=== PATIENT | female | born 1950 | race Caucasian/White ===

== ENCOUNTER → 2023-11-26 12:46 | Outpatient (REF) | payer OTHER, SELFPAY | LOC: HWRCS 12:46 | PROVIDERS: ATTENDING PHYSICIAN Internal Medicine Cardiovascular Disease; FAMILY PHYSICIAN Emergency Medicine | DX: I48.0 Paroxysmal atrial fibrillation (principal) | CPT/HCPCS: 93306 ==

== ENCOUNTER → 2023-12-24 11:23 | Outpatient (REF) | payer OTHER, SELFPAY | LOC: HWWDC 11:23 | PROVIDERS: ATTENDING PHYSICIAN Emergency Medicine | DX: Z12.31 Encounter for screening mammogram for malignant neoplasm of breast (principal) | CPT/HCPCS: 77063; 77067 ==

== ENCOUNTER → 2024-07-22 04:00 | Outpatient (REF) | payer OTHER, SELFPAY | LOC: DHSLP 04:00 | PROVIDERS: ATTENDING PHYSICIAN Internal Medicine Critical Care Medicine; FAMILY PHYSICIAN Emergency Medicine | DX: G47.33 Obstructive sleep apnea (adult) (pediatric) (principal) | CPT/HCPCS: 95800 ==

== ENCOUNTER → 2024-10-14 12:40 | Outpatient (REF) | payer OTHER, SELFPAY | LOC: RAD 12:40 | PROVIDERS: ATTENDING PHYSICIAN Nurse Practitioner Adult Health; FAMILY PHYSICIAN Emergency Medicine | DX: R91.8 Other nonspecific abnormal finding of lung field (principal) | CPT/HCPCS: 71250 ==

== ENCOUNTER → 2024-11-11 10:50 | Outpatient (REF) | payer OTHER, SELFPAY | LOC: RAD 10:50 | PROVIDERS: ATTENDING PHYSICIAN Emergency Medicine | DX: J22 Unspecified acute lower respiratory infection (principal) | CPT/HCPCS: 71046 ==

== ENCOUNTER → 2024-12-01 09:16 | Outpatient (REF) | payer OTHER, SELFPAY | LOC: RCS 09:16 | PROVIDERS: ATTENDING PHYSICIAN Internal Medicine Cardiovascular Disease; FAMILY PHYSICIAN Emergency Medicine | DX: I48.0 Paroxysmal atrial fibrillation (principal); I34.0 Nonrheumatic mitral (valve) insufficiency | CPT/HCPCS: 93306 ==

== ENCOUNTER → 2024-12-28 09:10 | Outpatient (REF) | payer OTHER, SELFPAY | LOC: HWWDC 09:10 | PROVIDERS: ATTENDING PHYSICIAN Emergency Medicine | DX: Z13.820 Encounter for screening for osteoporosis (principal); Z12.31 Encounter for screening mammogram for malignant neoplasm of breast; M81.0 Age-related osteoporosis without current pathological fracture | CPT/HCPCS: 77063; 77067; 77080 ==

== ENCOUNTER 2025-02-01 19:43 | Inpatient (IN) | payer OTHER, SELFPAY ==
[2025-02-01] VITALS (8 sets, daily range): BP systolic 89–149; BP diastolic 55–92; BMI 21.2; BMI 21.0
[2025-02-01 12:21] LABS: % Basophils 0.5 % (0-2); % Eosinophils 0.3 % (0-6); % Immature Granulocytes 0.5 % (0-0.5); % Lymphocytes 11.5 % (20.5-51.1); % Monocytes 9.3 % (1.7-9.3); % Neutrophils 77.9 % (42.2-75.2); Absolute Basophils 0.1 10^3/uL (0-0.2); Absolute Immature Granulocytes 0.1 10^3/uL (0-0.05); Absolute Lymphocytes 1.3 10^3/uL (1.2-3.4); Absolute Neutrophils 8.7 10^3/uL (1.4-6.5); Hematocrit 35.2 % (37.0-47.0); Hemoglobin 12.1 g/dL (12.0-16.0); Mean Corp Hgb Conc. 34.4 g/dL (33.0-37.0); Mean Corpuscular Hgb 31.9 pg (27.0-31.0); Mean Corpuscular Volume 92.9 fL (81.0-99.0); Mean Platelet Volume 9.9 fL (7.4-10.4); Nucleated Red Blood Cells % 0 %; Platelet Count 209 10^3/uL (130-400); Red Blood Cell Count 3.79 10^6/uL (4.20-5.40); Red Cell Dist. Width 13.2 % (11.5-14.5); White Blood Cell Count 11.1 10^3/uL (4.8-10.8)
[2025-02-01 12:51] LABS: COVID-19 Antigen Negative (Negative)
[2025-02-01 12:58] LABS: Troponin I < 0.012 ng/ml
[2025-02-01 13:03] LABS: ALT (SGPT) 36 U/L (0-35); AST (SGOT) 31 U/L (14-36); Albumin 4.3 g/dl (3.5-5.0); Alkaline Phosphatase 119 U/L (38-126); Blood Urea Nitrogen 26 mg/dl (7-17); Calcium 9.5 mg/dl (8.4-10.2); Carbon Dioxide 24 mmol/L (22-30); Chloride 96 mmol/L (98-107); Glucose 109 mg/dl (70-99); Potassium 4.8 mmol/L (3.5-5.1); Sodium 134 mmol/L (135-145); Total Bilirubin 1.6 mg/dl (0.2-1.3); Total Protein 6.9 g/dl (6.3-8.2); eGFR 58.39
[2025-02-01] MEDS: ROBITUSSIN 200 MG PO (17:37)
[2025-02-01] MEDS: DUONEB 3 ML INH (17:38)
[2025-02-01] MEDS: CARDIZEM 15 MG IV (17:59)
[2025-02-01] MEDS: CARDIZEM 125 IV ×3 (18:02→21:37)
[2025-02-01 18:16] LABS: NT-proBNP 2600 pg/ml
--- NOTE | 2025-02-01 18:24 | ED.GENMED ---
History of Present Illness
General
Chief Complaint: Breathing Problem
Source: patient
Exam Limitations: none
Time Seen by Provider: 02/01/25 17:14
Nursing documentation reviewed up to this point in time: agreed with
History of Present Illness
History of Present Illness:
Patient with history of paroxysmal atrial fibrillation, status post ablation in 2022, presents ED secondary to 1 week history of persistent cough, decreased appetite, shortness of breath, and weakness. Patient was evaluated at primary care's office
this afternoon and was found to be in recurrent rapid atrial fibrillation. Patient subsequently referred to ED for an evaluation. Denies fever or chills. Denies nausea, vomiting, or diarrhea. Denies headache. Patient does report dizziness when
standing up and walking
Past History
Past History
ED Past Medical History: Arrthythmia (afib), HTN and Hypercholesterolemia
ED Past Surgical History: None
Review of Systems
Review of Systems
Allergies reviewed?: Yes
All Other Systems: ROS reviewed and negative except as documented in HPI and ROS
Constitutional: Reports no symptoms; Denies fever
Respiratory: Reports cough and trouble breathing
Cardiac: Denies chest pain or syncope
ABD/GI: Reports no symptoms
Musculoskeletal: Reports no symptoms
Skin: Reports no symptoms
Neurological: Reports dizzy
Phy Exam
Physical Exam
Physical Exam:
Physical Exam
General: mild distress, not acutely ill. afebrile
Head: nc/at. eomi
Neck: supple. no meningeal signs.
Heart: irregularly irregular, tachycardic, no murmur.
Lungs: mild respiratory distress. diminished breath sounds bilaterally
Abdomen: normal bowel sounds. not tender.
Neuro: alert and oriented x 3. no focal neurological deficits
Skin: no rash
Psychiatric: well kept. interactive and cooperative
Extremities: no edema. no calf tenderness.
Scores
Heart Failure Risk
Heart Failure Risk Score: Not Applicable
Course
Orders/Labs/Results
Orders:
Orders
02/01/25 11:53
Electrocardiogram (*1) Urgent
Reason for Study: Shortness of Breath
EKG- Treatment ONCE
02/01/25 12:07
CR Chest - 2 Views Urgent
Comment:
Reason For Exam: SOB
02/01/25 12:13
Comprehensive Metabolic Panel Urgent
Troponin I Urgent
02/01/25 12:14
COVID-19 Antigen Urgent
Source: Nasal Swab
Complete Blood Count/With Diff Urgent
INF RAPID [Influenza A+B Rapid Molecular] Urgent
ANNABELLA Source: Nasal Swab
Specimen Description:
02/01/25 17:33
Ipratropium/Albuterol Sulfate [Duoneb] 3 ml .ROUTE .STK-MED ONE
02/01/25 17:34
Guaifenesin Solution [Robitussin] 200 mg .ROUTE .STK-MED ONE
02/01/25 17:35
Add On- LAB Urgent
Tests Added?: ProBNP
02/01/25 17:36
Guaifenesin Solution [Robitussin] 200 mg PO NOW STA
02/01/25 17:38
Ipratropium/Albuterol Sulfate [Duoneb] 3 ml INH R NOW ONE
02/01/25 17:40
Diltiazem HCl [Cardizem] 15 mg IV NOW STA
02/01/25 17:43
BNP [NT-proBNP] Urgent
02/01/25 17:45
Diltiazem 125 mg/125 ml Nss [Cardizem] 125 mg in 125 ml IV PER PROTOCOL
Initial dose in mg/hr, then titrate:: 5
Titrate to keep:: Heart rate 80-100 bpm
Titrate by mg/hr:: 5 mg/hr
Frequency of titrations (minutes):: 15
Maximum dose in mg/hr:: 15
02/01/25 18:24
Azithromycin 500 mg/250 ml [Zithromax Infusion] 500 mg in 250 ml IV NOW
CefTRIAXone [Rocephin] 1,000 mg IV NOW STA
02/01/25 18:27
Apixaban [Eliquis] 5 mg PO NOW STA
02/01/25 18:54
Admit/Transfer Patient As Directed
Co-Sign Provider:
Level of Care: Inpatient admission
Assign to:: Telemetry
Physician / Group: Lore
Diagnosis: Pneumonia
Reason for Telemetry: Medication for Arrhythmia
Date to Stop Telemetry: 02/03/25
Time to Stop Telemetry: 11:00
Reason for Hospitalization: Pneumonia complicated by rapid afib
Expected length of stay greater than two midnights?: Yes
ELOS- Estimated Length of Stay in days: 2
I certify the patient meets the requirements for IP care: Yes
PRN Pain Medication Management As Directed
May give lesser potent ordered pain med per pt: Yes
preference::
Protocol:: Medication orders for pain may be administered in a
manner that supports deferring to patient preference
when the pt is:
- Requesting an ordered lesser potent pain medication.
Least to most potent pain medications are defined
as: acetaminophen < NSAID < tramadol < opioids
(morphine, oxycodone, hydromorphone).
- Requesting a lesser dose of the same medication IF
ORDERED.
- Requesting a less intrusive route of administration
if both routes are prescribed by the provider (PO <
IV).
02/01/25 18:56
Code Status As Directed
Resuscitation Status: Full Code
02/03/25 11:00
DC Protocol for Telemetry ONCE
Abnormal Lab Results
02/01/25 02/01/25
12:13 12:14
WBC 11.1 H 10^3/uL
(4.8-10.8)
RBC 3.79 L 10^6/uL
(4.20-5.40)
Hct 35.2 L %
(37.0-47.0)
MCH 31.9 H pg
(27.0-31.0)
Abs Immat Gran (auto) 0.1 H 10^3/uL
(0-0.05)
Absolute Neuts (auto) 8.7 H 10^3/uL
(1.4-6.5)
Absolute Monos (auto) 1.0 H 10^3/uL
(0.1-0.6)
Neutrophils % 77.9 H %
(42.2-75.2)
Lymphocytes % 11.5 L %
(20.5-51.1)
Sodium 134 L mmol/L
(135-145)
Chloride 96 L mmol/L
(98-107)
BUN 26 H mg/dl
(7-17)
Glucose 109 H mg/dl
(70-99)
Total Bilirubin 1.6 H mg/dl
(0.2-1.3)
ALT 36 H U/L
(0-35)
02/01/25 12:14
02/01/25 12:13
Vital Signs
Initial and Last Documented VS:
Initial Vital Signs
Temp Pulse Resp BP Pulse Ox
98.3 F 146 18 124/74 98
02/01/25 12:03 02/01/25 12:03 02/01/25 12:03 02/01/25 12:03 02/01/25 12:03
Last Documented Vital Signs
Temp Pulse Resp BP Pulse Ox
98.3 F 108 31 149/92 92
02/01/25 12:03 02/01/25 18:05 02/01/25 17:01 02/01/25 17:59 02/01/25 17:17
MDM/Problems Addressed
MDM/Problems Addressed:
History and exam consistent with recurrent rapid atrial fibrillation, likely triggered by pneumonia. Patient started on Cardizem infusion, along with antibiotics.
Patient will be admitted for further evaluation and treatment.
Critical care statement: A total of 40 minutes of critical care time was provided for this patient. This includes management of unstable vital signs, evaluation of the patient at bedside, reviewing the patient's pertinent medical records, review of
old EKGs and review of pertinent medical records. This time with separate from time utilized to perform the aforementioned documented procedures
*Critical Care Note
Total Time (30-74mins, 75-104mins- exclusive of procedures): 40 min
ED Attending Note
-
Portions of this chart may have been created with voice recognition software.� Occasional wrong word or��sound alike� substitutions may have occurred due to the inherent limitations of voice recognition software.
Discharge Plan
Departure
Patient Disposition: Admit
Date of Disposition: 02/01/25
Time of Disposition: 18:32
Admit to: Telemetry
Presentation/result/management discussed w/ accepting MD/DO: Hospitalist
Discharge Problem:
Atrial fibrillation, rapid, Pneumonia
Interventions
Interventions:
*Risk Screen - Suicide Last Done: 02/01/25 12:03
*General Assessment Last Done: 02/01/25 12:03
*Neglect/Abuse Screening Last Done: 02/01/25 12:03
*ED COVID-19 Vaccine History Last Done: 02/01/25 12:06
ED- Cardiac Assessment Last Done: 02/01/25 17:16
ED- Pulmonary Assessment Last Done: 02/01/25 17:17
--- NOTE | 2025-02-01 18:32 | HPS.HSE ---
Family Physician
-
Family Physician: Erika Rocha MD
Chief Complaint
-
Cough and shortness of breath
History of Present Illness
This is a 76-year-old female with past medical history of atrial fibrillation status post cardioversion, status post ablation, on anticoagulation and rate control with beta-blockade, history of emphysema, hypertension, hyperlipidemia presenting to
the emergency department with rapid atrial fibrillation from clinic.
Patient reports 10 days of cough that is mostly nonproductive. She reports worsening dyspnea on exertion over the weekend. No fevers or chills. She reports fatigue. Decreased appetite. She reports intermittent pedal edema but nothing
significant compared to her baseline. She denies orthopnea or PND. She felt some body shakes but denies any palpitations lightheadedness or dizziness. She denies having any chest pain.
She saw primary care doctor today who found that she was back in atrial fibrillation that was rapid and seen at the emergency department. She has not been in atrial fibrillation for a long time and had an ECG done in November which did not show any
atrial fibrillation. She reports an awareness of the atrial fibrillation in general in the past.
In the emergency department she remains afebrile with a temp of 90.3 she is satting 93% on room air. Blood pressure was initially 150/90 with a pulse in the 150s. ECG shows atrial fibrillation at a rate of 156. Chest x-ray shows bilateral lower
lobe opacities.
White count was 11.2 CBC otherwise unremarkable. Electrolytes BUN/creatinine were stable.
Medical History
Past Medical History
Past Medical History: Reports Arrhythmia (paroxysmal atrial fibrillation), CAD, COPD (emphysema ), Valvular Disease (Mitral regurgitation) and Other (Sleep apnea)
Past Surgical History: Reports Appendectomy
Social History
Tobacco: Former Smoker
Alcohol: Daily (1 glass of wine)
Drug: None
Personal: Single
Living: With Family
Employment: Retired
Family History
Family History: Not pertinent
Allergies / Home Medications
Allergies reflects when Allergies were last updated in [employer].
Home Medications with original date entered in [employer]
Allergy/Medication List:
Allergies
Allergy/AdvReac Type Severity Reaction Status Date / Time
hydromorphone [From Dilaudid] Allergy Severe hallucinati Verified 02/01/25 12:07
ons
Home Medications
amlodipine 5 mg tablet 5 mg PO QPM Blood pressure 11/20/22
apixaban 5 mg tablet (Eliquis) 5 mg PO BID Blood clot prevention/tx 11/20/22
ascorbic acid (vitamin C) 500 mg tablet (Vitamin C) 500 mg PO DAILY Supplement 11/20/22
atorvastatin 10 mg tablet 15 mg PO QPM High cholesterol 11/20/22
calcium carbonate 600 mg PO BID Supplement 11/20/22
irbesartan 150 mg tablet 150 mg PO DAILY Blood pressure 11/20/22
mkfqekpgkezd-jxbrhwmf-kxqyur tablet 1 tab PO DAILY Supplement 11/20/22
omega 1-egb-jtx-fish oil 1,200 mg (144 mg-216 mg) capsule (Fish Oil) 1,200 cap PO BID supp 11/20/22
furosemide 20 mg tablet 20 mg PO MOWEFR 12/25/22
amiodarone 200 mg tablet 200 mg PO DAILY 02/15/23
magnesium oxide 400 mg PO TID 02/15/23
niacin 500 mg tablet 500 mg PO QPM 02/15/23
metoprolol succinate 50 mg tablet,extended release 24 hr 12.5 mg (1/4 x 50 mg) PO BID #0 tabs 03/15/23
Review of Systems
-
History Source: Patient
Constitutional: Reports Fatigue
EENT: Reports No Symptoms
Respiratory: Reports Cough and Trouble Breathing
Cardiac: Reports No Symptoms
Abdomen/GI: Reports No Symptoms
: Reports No Symptoms
Musculoskeletal: Reports No Symptoms
Skin: Reports No Symptoms
Neurological: Reports No Symptoms
Endocrine: Reports No Symptoms
Hematologic/Lymphatic: Reports No Symptoms
Psych: Reports No Symptoms
Physical Exam
Vital Signs
Vital Signs
Temp Pulse Resp BP Pulse Ox
98.3 F 108 31 149/92 92
02/01/25 12:03 02/01/25 18:05 02/01/25 17:01 02/01/25 17:59 02/01/25 17:17
Physical Exam
General: Well Developed, Well Nourished, Comfortable and Poor Appetite
HEENT: NormoCephalic, Anicteric, Moist mucous membranes and Atraumatic
Respiratory: Wheezes (Occasional coarse wheeze), Crackles (Bibasilar faint crackles,) and Non Labored Respirations; No Accessory Resp Muscle Use
Cardiac: S1/S2, Irregular Rhythm and Tachycardia; No Murmur, Rub, Gallop, Peripheral Edema or JVD
Breast: Deferred by me
GI: Soft, Non Tender, Non Distended and Normal Bowel Sounds
Rectal: Deferred by Provider
Genito-urinary: Deferred by me
Musculoskeletal: No Clubbing, No Cyanosis and No Edema
Skin: Warm
Neuro: AO x 3 and Nonfocal/grossly intact
Hematologic/Lymphatic: No Lymphadenopathy
Psych: Calm
Laboratory Results
-
02/01/25 12:14
02/01/25 12:13
Laboratory Results
Total Bilirubin 1.6 mg/dl (0.2-1.3) H 02/01/25 12:13
AST 31 U/L (14-36) 02/01/25 12:13
ALT 36 U/L (0-35) H 02/01/25 12:13
Alkaline Phosphatase 119 U/L (38-126) 02/01/25 12:13
Troponin I < 0.012 ng/ml 02/01/25 12:13
Data Reviewed
-
Diagnostic Radiology: Image Personally Visualized and interpreted and Report Reviewed by me
Medical Tests (Nuc Med, Echo, EKG etc): Image Personally Visualized and interpreted
Lab Data: Labs Reviewed by me
Old Records: Reviewed
Impression/Plan
-
IMPRESSION:
76-year-old with past medical history of atrial fibrillation status post ablation who presents to the emergency department after 10 days of cough and found to have bilateral lower lobe pneumonia. She is in rapid atrial fibrillation as well. No
evidence of congestive heart failure. She is afebrile and hemodynamically stable at this time not requiring supplemental oxygen.
PLAN:
Pneumonia complicated by rapid atrial fibrillation
- admit to telemetry
- check legionella and strep ag
- continue ceftriaxone and azithromycin
- antitussives
- prn nebs for now, do not think she has significant bronchospastic component or COPD exacerbation
Rapid atrial fibrillation
- continue diltiazem at rate of 15, d/c if pulse < 60
- hold off on repeat echo for now
- continue eliquis
- cardiology consultation
Hypertension
- irbesatan with hold parameters
- hold amlodipine
- hold lasix
- continue statin
DVT PPx - on apixaban
Code status - Full Code
[2025-02-01] MEDS: ROCEPHIN 1000 MG IV (19:21)
[2025-02-01] MEDS: ZITHROMAX INFUSION 250 IV (19:24)
[2025-02-01] MEDS: ELIQUIS 5 MG PO (19:25)
[2025-02-01] MEDS: CARDURA 2 MG PO (23:09)
[2025-02-02] VITALS (10 sets, daily range): BP systolic 94–124; BP diastolic 45–96; BMI 20.9
[2025-02-02 05:11] LABS: Mean Corp Hgb Conc. 34.5 g/dL (33.0-37.0); Mean Corpuscular Hgb 31.8 pg (27.0-31.0); Mean Corpuscular Volume 92.4 fL (81.0-99.0); Mean Platelet Volume 9.9 fL (7.4-10.4); Platelet Count 185 10^3/uL (130-400); Red Blood Cell Count 3.14 10^6/uL (4.20-5.40); Red Cell Dist. Width 13.2 % (11.5-14.5); White Blood Cell Count 8.5 10^3/uL (4.8-10.8)
[2025-02-02 05:21] LABS: Blood Urea Nitrogen 22 mg/dl (7-17); Calcium 8.7 mg/dl (8.4-10.2); Carbon Dioxide 23 mmol/L (22-30); Chloride 104 mmol/L (98-107); Estimated Creatinine Clearance 52 ml/min; Glucose 74 mg/dl (70-99); Magnesium 1.5 mg/dl (1.6-2.3); Potassium 4.2 mmol/L (3.5-5.1); Sodium 135 mmol/L (135-145); eGFR > 60.00
[2025-02-02] MEDS: SYNTHROID 50 MCG PO (06:14)
[2025-02-02] MEDS: MAGNESIUM SULFATE 100 IV (06:14)
[2025-02-02] MEDS: CARDIZEM 125 IV ×2 (06:23→20:56)
--- NOTE | 2025-02-02 06:37 | PTCARENOTE ---
Pt admitted to room 2241. Pt AAOx4, AFib with HR 90-100s. Cardizem gtt. Pt ambulates with x 1 assist. oriented to room, call oviedo in reach
[2025-02-02] MEDS: ELIQUIS 5 MG PO ×2 (07:51→19:44)
[2025-02-02] MEDS: AVAPRO 300 MG PO (07:51)
[2025-02-02] MEDS: TOPROL XL 12.5 MG PO ×2 (07:51→18:02)
[2025-02-02] MEDS: ZITHROMAX 500 MG PO (07:52)
--- NOTE | 2025-02-02 08:16 | W.PN.HOSP.TC ---
Today's Communication/Plan
-
Add mucinex for chest congestion
continue antibiotics
cardiology consultation regarding cardizem infusion and plans for cardioversion
Assessment / Plan
Assessment / Plan
Impression
Patient is a 74-year-old female with past medical history significant for atrial fibrillation s/p cardioversion, s/p ablation, on anticoagulation and rate controlled with beta-blockade, history of emphysema, hypertension, hyperlipidemia presented
from her primary care office with rapid A-fib, heart rate ranging in 150s. Had been out of A-fib for a long time. Admitted with rapid A-fib triggered by pneumonia.
Assessment/plan
#1. Pneumonia complicated by rapid A-fib
10 days of nonproductive cough, remained afebrile, reports some fatigue, denies any palpitations chest pain or shortness of breath
Chest x-ray done in the ED revealed bilateral lower lobe opacities
EKG-rapid A-fib with heart rate ranging in 150s
Legionella and strep pneumoniae antigen pending, COVID-negative, influenza negative
Continue ceftriaxone and azithromycin
Continue Cardizem infusion
As needed nebs
#2 rapid A-fib
Continue diltiazem, currently at 5 mg/h
Titrate as able
Last echo, November 2024, moderate MR moderate TR, normal left ventricular ejection fraction
Continue Eliquis
cardiology consultation
#3 essential hypertension
Continue irbesartan with holding parameters
Amlodipine on hold given the patient is on Cardizem infusion
Hold Lasix
#4 hyperlipidemia
Continue statin
DVT prophylaxis-continue Eliquis
CODE STATUS-full code
Anticipated Discharge: 24 - 48 hours
Subjective/Interval History
-
Date of Service: February 02, 2025
Patient complains of nonproductive cough, fatigue, remained afebrile overnight, slept well, no other issues.
Objective Data
-
Labs:
Laboratory Results
02/02/25
04:30
WBC 8.5
Hgb 10.0 L
Hct 29.0 L
Plt Count 185
Sodium 135
Potassium 4.2
Chloride 104
Carbon Dioxide 23
BUN 22 H
Creatinine 0.8
Glucose 74
Calcium 8.7
Vital Signs:
Vital Signs
Temp Pulse Resp BP Pulse Ox
98.3 F 83 20 109/60 93
02/02/25 06:58 02/02/25 07:51 02/02/25 06:58 02/02/25 07:51 02/02/25 06:58
I&O
02/01/25 02/02/25 02/03/25
06:59 06:59 06:59
Intake Total 460 / 460
Balance 460 / 460
Review of Systems
-
All other systems: Reviewed and negative
Physical Exam
-
General: Well Developed, No Apparent Distress and Comfortable
HEENT: Normocephalic, Atraumatic, Moist Mucous Membranes and Other (Breathing on room air)
Respiratory: Other (Bilateral rhonchi, harsh vesicular breathing)
Cardiac: S1/S2, Irregular Rhythm and Other (Heart rate 70 to 80s, no murmur, rub or gallop)
GI: Soft, Nontender, Nondistended and Normal Bowel Sounds
Musculoskeletal: No Clubbing, No Cyanosis and No Edema
Skin: Warm and Dry
Neuro: Awake, Oriented and Nonfocal/Grossly Intact
Psych: Calm
[2025-02-02] MEDS: MAGNESIUM SULFATE 102 GRAMS IV (09:11)
[2025-02-02] MEDS: MUCINEX 600 MG PO ×2 (12:06→19:44)
[2025-02-02] MEDS: TYLENOL 650 MG PO (12:24)
[2025-02-02 14:41] LABS: Total Iron Binding Capacity 240 ug/dl (265-497)
[2025-02-02 15:04] LABS: Reticulocyte Count 1.1 % (0.4-2.8)
--- NOTE | 2025-02-02 17:11 | CM ---
spoke to pt in room, she is prev indep, her son/2 toddlers lives with her in a 2 story home with 2 steps to enter. she denies any dc planning needs or dme's. plan is for dc to home when medically stable.
[2025-02-02] MEDS: ROCEPHIN 1000 MG IV (17:19)
[2025-02-02] MEDS: LIPITOR 15 MG PO (17:19)
[2025-02-02] MEDS: STERILE WATER FOR INJECTION 10 ML IV (17:20)
--- NOTE | 2025-02-02 18:56 | PTCARENOTE ---
~5742-1733: Handoff report received from ant MIRAMONTES. Pt Aox4, Afib on tele 60s-70s, SBP 90s-100s at this time, cardizem gtt @ 5, pt c/o lightheadedness with moving. Around 0800, cardizem gtt turned off per titration parameters. RA satting mid
90s, lungs diminished bases with frequent dry cough. Pt denies pain at this time. Ax1 to bathroom. urine sample sent to lab. 1G mag hung per order. All needs met at this time, call oviedo within reach.
~4172-1363: Pt c/o headache, PRN tylenol given.
~6949-0036: Pt resting in room. Pt remains in Afib, 70s-80s, RA. Pt c/o some brief nausea with coughing, however does not want anything.
~[id number]: Pt Afib HR increased to 100s-120s, Dr. Salcido made aware that the patient is eating at this time, one dose of metoprolol given per order. After 30 mins, HR remains 110s-120s, informed Dr. Joe new orders at this time. Handoff
report given to padmini MIRAMONTES.
[2025-02-02 19:00] LABS: Folate > 20.0 ng/ml (2.76-20); Vitamin B12 935 pg/ml (239-931)
[2025-02-02] MEDS: CARDURA 2 MG PO (20:56)
--- NOTE | 2025-02-02 21:37 | PTCARENOTE ---
19:55 Pt HR 110-140 AFib , Cardizem gtt restarted per order
[2025-02-03] VITALS (13 sets, daily range): BP systolic 94–117; BP diastolic 52–81; PULSE 94; O2SAT 96–97; BMI 20.8
[2025-02-03] MEDS: SYNTHROID 50 MCG PO (03:56)
[2025-02-03] MEDS: TYLENOL 650 MG PO (03:57)
[2025-02-03 05:00] LABS: % Basophils 0.4 % (0-2); % Immature Granulocytes 0.4 % (0-0.5); % Lymphocytes 18.4 % (20.5-51.1); % Monocytes 10.9 % (1.7-9.3); % Neutrophils 68.9 % (42.2-75.2); Absolute Eosinophils 0.1 10^3/uL (0-0.7); Absolute Lymphocytes 1.5 10^3/uL (1.2-3.4); Absolute Monocytes 0.9 10^3/uL (0.1-0.6); Absolute Neutrophils 5.4 10^3/uL (1.4-6.5); Hematocrit 30.2 % (37.0-47.0); Hemoglobin 10.3 g/dL (12.0-16.0); Mean Corp Hgb Conc. 34.1 g/dL (33.0-37.0); Mean Corpuscular Hgb 31.4 pg (27.0-31.0); Mean Corpuscular Volume 92.1 fL (81.0-99.0); Mean Platelet Volume 9.9 fL (7.4-10.4); Nucleated Red Blood Cells % 0 %; Platelet Count 210 10^3/uL (130-400); Red Blood Cell Count 3.28 10^6/uL (4.20-5.40); Red Cell Dist. Width 12.8 % (11.5-14.5); White Blood Cell Count 7.9 10^3/uL (4.8-10.8)
[2025-02-03 05:20] LABS: ALT (SGPT) 35 U/L (0-35); AST (SGOT) 36 U/L (14-36); Albumin 3.3 g/dl (3.5-5.0); Alkaline Phosphatase 104 U/L (38-126); Blood Urea Nitrogen 12 mg/dl (7-17); Calcium 8.7 mg/dl (8.4-10.2); Carbon Dioxide 21 mmol/L (22-30); Chloride 103 mmol/L (98-107); Estimated Creatinine Clearance 69 ml/min; Glucose 92 mg/dl (70-99); Magnesium 1.5 mg/dl (1.6-2.3); Potassium 4.4 mmol/L (3.5-5.1); Sodium 134 mmol/L (135-145); Total Bilirubin 0.8 mg/dl (0.2-1.3); Total Protein 5.7 g/dl (6.3-8.2); eGFR > 60.00
[2025-02-03] MEDS: MAGNESIUM SULFATE 100 IV ×2 (06:19→11:18)
--- NOTE | 2025-02-03 08:30 | PTCARENOTE ---
Assumed care of pt from prev nsg shift; pt AAO3 w/no CP or SOB. Pt's VSS w/HR in the 70's-80's, BP 99/65, then 101/68 on recheck before meds. Pt is Afib on telemetry monitoring. HR is controlled. Addtl 1GM Mg+ rider IV administered as ordered.
Cardiology in to see pt & pt's Eliquis restarted this AM. Plan for poss D/C today. Pt w/call oviedo within reach & plan of care ongoing.
--- NOTE | 2025-02-03 08:36 | W.PN.HOSP.TC ---
Today's Communication/Plan
-
Cardioversion on outpatient basis as per cards
Discharge on oral augmentin
Assessment / Plan
Assessment / Plan
Impression
Patient is a 74-year-old female with past medical history significant for atrial fibrillation s/p cardioversion, s/p ablation, on anticoagulation and rate controlled with beta-blockade, history of emphysema, hypertension, hyperlipidemia presented
from her primary care office with rapid A-fib, heart rate ranging in 150s. Had been out of A-fib for a long time. Admitted with rapid A-fib triggered by pneumonia.
Assessment/plan
#1. Pneumonia complicated by rapid A-fib
10 days of nonproductive cough, remained afebrile, reports some fatigue, denies any palpitations chest pain or shortness of breath
Chest x-ray done in the ED revealed bilateral lower lobe opacities
EKG-rapid A-fib with heart rate ranging in 150s
Legionella and strep pneumoniae antigen negative, COVID-negative, influenza negative
Continue ceftriaxone and azithromycin
Cardizem infusion restarted overnight-as patient heart rate ranging in 120's
Add duonebs 4 hourly
On mucinex to help clear out the air passages
#2 rapid A-fib
Diltiazem restarted overnight given patient's rapid afib
Continue diltiazem, currently at 5 mg/h
Titrate as able
Last echo, November 2024, moderate MR moderate TR, normal left ventricular ejection fraction
Continue Eliquis
cardiology consultation-no plans of cardioversion-treat pneumonia-outpatient follow-up
#3 essential hypertension
Continue irbesartan with holding parameters
Amlodipine on hold given the patient is on Cardizem infusion
Hold Lasix
#4.Normocytic Anemia
Vit B12 Normal
Folate levels normal
Follow Iron studies
#5.hyperlipidemia
Continue statin
DVT prophylaxis-Eliquis
CODE STATUS-full code
Anticipated Discharge: 24 - 48 hours
Subjective/Interval History
-
Date of Service: February 03, 2025
Coughing and disturbed sleep due to cough
Objective Data
-
Labs:
Laboratory Results
02/03/25
03:49
WBC 7.9
Hgb 10.3 L
Hct 30.2 L
Plt Count 210
Sodium 134 L
Potassium 4.4
Chloride 103
Carbon Dioxide 21 L
BUN 12
Creatinine 0.6
Glucose 92
Calcium 8.7
Total Bilirubin 0.8
AST 36
ALT 35
Alkaline Phosphatase 104
Vital Signs:
Vital Signs
Temp Pulse Resp BP Pulse Ox
98.7 F 75 20 99/61 90
02/03/25 07:04 02/03/25 07:31 02/03/25 07:04 02/03/25 07:05 02/03/25 07:05
I&O
02/02/25 02/03/25 02/04/25
06:59 06:59 06:59
Intake Total 460 / 460 300 / 300
Output Total 150 / 150
Balance 460 / 460 150 / 150
Review of Systems
-
All other systems: Reviewed and negative
Physical Exam
-
General: Well Developed, Well Nourished and No Apparent Distress
HEENT: Normocephalic, Atraumatic and Moist Mucous Membranes
Respiratory: Other (Harsh vesicular breathing with some coarse ronchi)
Cardiac: Irregular Rhythm (Irregularly irregular rhythm) and Tachycardic
GI: Soft, Nontender, Nondistended and Normal Bowel Sounds
Musculoskeletal: No Clubbing, No Cyanosis and No Edema
Skin: Warm and Dry
Neuro: Awake, Oriented and No Motor Deficits
Psych: Calm
--- NOTE | 2025-02-03 08:43 | CON.CAR ---
Addendum entered and electronically signed by Caleb Al MD 02/03/25 10:21:
I saw and examined the patient.
The Dietetic Aide's note was reviewed and I agree with the note.
Comment: Briefly, 74-year-old woman with past medical history of atrial fibrillation with prior PVI who presented to her primary care physician's office for evaluation of cough and fatigue and was found to be in atrial fibrillation with rapid
ventricular response. Currently being treated with IV antibiotics for community-acquired pneumonia.
Was maintained on diltiazem drip overnight and heart rates were better controlled this morning
Does not seem to be overtly symptomatic in atrial fibrillation
Plan to wean off diltiazem drip
Continue home metoprolol for goal heart rate less than 110 bpm, can uptitrate as needed
Continue Eliquis for cardioembolic prophylaxis
Recommend treatment of pneumonia and we can reevaluate in the office in the next several weeks. If she remains in atrial fibrillation at that time will schedule outpatient cardioversion.
Rest per Margarette Torre
Original Note:
Consultation
Consultation Request
Date/Time Consultation Requested: 02/02/2025
Date/Time Consultation Performed: 02/03/2025
Requesting Provider: Dr. Espinosa
Performing Provider: Margarette Torre PA-C for Dr. Al
Reason for Consultation: Afib w/ RVR
Medical History
-
History of Present Illness:
HPI: Jessica is a 74 year old female with PMH of paroxysmal atrial fibrillation s/p PVI, pulmonary HTN, COPD, HTN, HLD, and MR. She presented to [facility] ER after being seen by PCP earlier in the day 02/01/2025 for evaluation of ongoing cough and fatigue
for 1 week. She stated she started to feel quite poorly over the past few days, prompting evaluation. During visit with PCP, she was noted to be back in afib w/ RVR, so was referred to the ER for further workup and management. In ER, she remained in
rapid afib by initial ECG and workup also revealed pneumonia. She was admitted and started on abx and cardizem gtt. Cardiology consulted for evaluation given Afib w/ RVR. She notes despite HR improving into the 70s, continues to feel somewhat poorly
with ongoing cough and malaise. Remains in afib on review of telemetry.
PMH:
Paroxysmal atrial fibrillation
s/p PVI 03/18/2023
Chronic Eliquis AC
Pulmonary HTN
COPD
HTN
HLD
Mild-mod MR by echo 11/2024
Past Medical History
Past Medical History: Other (In HPI)
Past Surgical History: Appendectomy, Cardiac (PVI 03/18/2023) and Orthopedic
Social History
Tobacco: Former Smoker
Alcohol: Occasional
Drug: None
Personal:
Family History
Family History: Reviewed & Not Pertinent
Allergies / Home Medications
Allergy/AdvReac Type Severity Reaction Status Date / Time
hydromorphone [From Dilaudid] Allergy hallucinati Verified 02/02/25 17:58
ons
�Medication �Instructions �Recorded �Confirmed �Type
apixaban 5 mg tablet (Eliquis) 5 mg PO BID Blood clot 11/20/22 02/01/25 History
prevention/tx
ascorbic acid (vitamin C) 500 mg 500 mg PO DAILY Supplement 11/20/22 02/01/25 History
tablet (Vitamin C)
atorvastatin 10 mg tablet 15 mg PO QPM High cholesterol 11/20/22 02/01/25 History
calcium carbonate 600 mg PO BID Supplement 11/20/22 02/01/25 History
irbesartan 150 mg tablet 300 mg PO DAILY Blood pressure 11/20/22 02/01/25 History
mjzrxgqjkxnw-tirzblie-rjznxy 1 tab PO DAILY Supplement 11/20/22 02/01/25 History
tablet (Theratrum Complete 50 Plus
with Lutein tablet)
furosemide 20 mg tablet 40 mg PO DAILY Fluid 12/25/22 02/01/25 History
Retention/Swelling
magnesium oxide 400 mg PO DAILY Supplement 02/15/23 02/01/25 History
doxazosin 2 mg tablet 2 mg PO HS Blood Pressure 02/01/25 02/01/25 History
levothyroxine 50 mcg tablet 50 mcg PO DAILY Thyroid 02/01/25 02/01/25 History
(Synthroid)
metoprolol succinate 50 mg 12.5 mg PO DAILY Blood Pressure 02/01/25 02/01/25 History
tablet,extended release 24 hr
Review of Systems
-
History Source: Patient
All other systems: Negative unless noted
Physical Exam
Vital Signs
Temp Pulse Resp BP Pulse Ox
98.7 F 75 20 99/61 90
02/03/25 07:04 02/03/25 07:31 02/03/25 07:04 02/03/25 07:05 02/03/25 07:05
Lab Results
02/03/25 03:49
02/03/25 03:49
Troponin I < 0.012 ng/ml 02/01/25 12:13
Zhm-R-Vflzmdcfday Pept 2600 pg/ml 02/01/25 17:43
Physical Exam
General: Well Developed, Well Nourished and No Apparent Distress
HEENT: Normocephalic, Anicteric and Moist Mucous Membranes
Respiratory: Rhonchi and Non Labored Respirations
Cardiac: S1/S2, Irregular Rhythm and Murmur
Musculoskeletal: No Clubbing, No Cyanosis and No Edema
Skin: Warm and Dry
Neuro: AO x 3 and Nonfocal/Grossly Intact
Psych: Calm
Impression / Plan
-
PCP: Dr. Rocha
Loader Helper Sorting Yard: Dr. Martine Mendoza
Impression:
Presented with cough, malaise
Pneumonia
Hypomagnesemia
Hyponatremia
Paroxysmal atrial fibrillation w/ RVR
s/p PVI 03/18/2023
Chronic Eliquis AC
Pulmonary HTN
COPD
HTN
HLD
Mild-mod MR by echo 11/2024
RAUL 03/12/2023: EF 55-60%, mild MR, moderate to severe TR, estimated PAP 31 mmHg
Echo 11/26/2023: EF 55-60%, moderate MR, moderate to severe TR, estimated PAP 52 mmHg,
Echo 12/01/2024: EF 54%, mild to mod MR, mod TR, estimated PAP 51 mmHg
Plan:
-Presented with ongoing cough and malaise. Admitted with pneumonia and rapid afib.
-Continues w/ cough. Continue abx per primary service.
-In Afib w/ RVR on initial ECG, reviewed by me.
-Continues on cardizem gtt @5 for rate control. HR stable. Wean as able.
-Consider increasing Toprol as BP allows for rate control. BP on soft side this AM.
-Continue Eliquis 5mg BID. On hold this AM, Hgb stable and patient denies any bleeding issues noted. Will resume.
-Can consider for CV this admission if remains in Afib.
-Echo 11/2024 noted preserved EF with stable, mild to moderate MR, no need to repeat at this time.
-Mag 1.5, repletion ongoing. K stable at 4.4
-Check TSH. On levothyroxine 50 mcg daily as OP.
-Volume status appears stable. Continue PO lasix 40mg daily.
-Continue current BP regimen w/ irbesartan, doxazosin.
HPI: Jessica is a 74 year old female with PMH of paroxysmal atrial fibrillation s/p PVI, pulmonary HTN, COPD, HTN, HLD, and MR. She presented to [facility] ER after being seen by PCP earlier in the day 02/01/2025 for evaluation of ongoing cough and fatigue
for 1 week. She stated she started to feel quite poorly over the past few days, prompting evaluation. During visit with PCP, she was noted to be back in afib w/ RVR, so was referred to the ER for further workup and management. In ER, she remained in
rapid afib by initial ECG and workup also revealed pneumonia. She was admitted and started on abx and cardizem gtt. Cardiology consulted for evaluation given Afib w/ RVR. She notes despite HR improving into the 70s, continues to feel somewhat poorly
with ongoing cough and malaise. Remains in afib on review of telemetry.
Data Reviewed
-
EKG: Tracing Personally Visualized and interpreted
Radiology: Report Reviewed by me
Labs: Labs Reviewed by me
Old Records: Reviewed
[2025-02-03] MEDS: AVAPRO 300 MG PO (09:11)
[2025-02-03] MEDS: ZITHROMAX 500 MG PO (09:16)
[2025-02-03] MEDS: TOPROL XL 12.5 MG PO (09:16)
[2025-02-03] MEDS: MUCINEX 600 MG PO ×2 (09:16→18:06)
[2025-02-03] MEDS: TESSALON PERLES 100 MG PO ×2 (10:31→18:06)
[2025-02-03] MEDS: ELIQUIS 5 MG PO ×2 (10:31→19:56)
[2025-02-03 10:32] LABS: TSH Reflex To Free T4 1.43 uIU/ml (0.47-4.68)
[2025-02-03] MEDS: DUONEB 3 ML INH ×3 (11:17→21:43)
--- NOTE | 2025-02-03 11:39 | CM ---
CM following for DC planning needs.
Met w/ patient at bedside. Reviewed role of CM.
We reviewed initial assessment. Pt. resides w/ son + grandchildren in her [address] w/ 2 [place]. Functionally, patient is indep. w/ ADLs, mobility without the use of any assisted device.
Antic. DC plan is for home w/ no needs.
Will cont. to follow for any needs that may arise.
--- NOTE | 2025-02-03 12:25 | W.DCSUMMARY ---
Documented by User: Robel Pozo MD, Resident 02/05/25 12:46
Discharge Summary
Discharge Data
Date of Admission: 02/01/25
Date of Discharge: 02/04/25
-
Pending Results: No
Hospital Course
Discharging Physician :
Casey Espinosa
Disposition :
Home
Primary care physician :
Erika Rocha MD
Principal Discharge diagnosis :
Paroxysmal atrial fibrillation/pneumonia/normocytic anemia
Chronic Discharge diagnosis :
Paroxysmal atrial fibrillation-s/p PVI 03/18/2023,Chronic Eliquis AC
Pulmonary HTN
COPD
HTN
HLD
Mild-mod MR by echo 11/2024
Hospital Course :
Patient is a 74-year-old female with past medical history significant for atrial fibrillation s/p cardioversion, s/p ablation, on anticoagulation and rate controlled with beta-blockade, history of emphysema, hypertension, hyperlipidemia presented
from her primary care office with rapid A-fib, heart rate ranging in 150s. Had been out of A-fib for a long time. Admitted with rapid A-fib triggered by pneumonia.
1.Paroxysmal rapid A-fib
EKG-rapid A-fib with heart rate ranging in 150s
Required cardizem infusion for two days
Cardiology did successful cardioversion on 02/04-successfully reverted NSR
Cardiology follow up on outpatient basis
Continue Metoprolol XL home dose
2.Community acquired pneumonia
10 days of nonproductive cough, remained afebrile, reports some fatigue, denies any palpitations chest pain or shortness of breath
Chest x-ray done in the ED revealed bilateral lower lobe opacities
Legionella and strep pneumoniae antigen negative, COVID-negative, influenza negative
Received ceftriaxone and azithromycin in hospital for three days
Treat pneumonia with Augmentin for 4 more days at home and f/u with PCP
3.Normocytic anemia
Vit B12 Normal
Folate levels normal
Most likely dilutional
Repeat cbc on o/p basis
Important imaging findings :
EKG 02/01/2025-Vent. Rate : 156 BPM Atrial Rate : 326 BPM
P-R Int : 000 ms QRS Dur : 070 ms
QT Int : 280 ms P-R-T Axes : 000 060 010 degrees
QTc Int : 451 ms
ATRIAL FIBRILLATION WITH VARIABLE A-V BLOCK
NONSPECIFIC ST ABNORMALITY
ABNORMAL ECG
WHEN COMPARED WITH ECG OF 15-MAR-2023 06:03,
ATRIAL FLUTTER HAS REPLACED SINUS RHYTHM
VENT. RATE HAS INCREASED BY 101 BPM
CXR 02/01/2025
FINDINGS: Parenchymal airspace opacities are present within both lower lobes, new from previous examination, and likely representing pneumonia.
No evidence for significant associated pleural effusion.
Cardiac silhouette size is enlarged, with no findings to suggest pulmonary edema. Calcification of the aortic arch, stable, with no findings to suggest aortic aneurysm.
Mild S-shaped scoliosis of the thoracic spine.
IMPRESSION:
Parenchymal airspace opacities within both lower lobes, new from prior examination and likely representing pneumonia.
Discharge Plan
-
Patient Disposition: Home (Routine Discharge)
Discharge Diagnosis/Procedures: Paroxysmal atrial fibrillation/pneumonia/normocytic anemia
Status post DCCV
Condition: Fair
Diet: Regular
Activity: As tolerated
Driving Restrictions: As prior to admission
Bathing Restrictions: OK to Shower
Blood Work: None
Others Tests: None
Referrals:
Erika Rocha MD [Family Provider] - in less than 1 week
Margarette Torre PA-C [Specified Professional Personl] - 02/18/25 3:20 pm (You have a follow up visit with Dr. Farley's Margarette PERERA, in the [facility] office. Please call with questions. )
Additional Discharge Medication Instructions: Continue Augmentin 875-125 mg every 12 hours for 4 more days after discharge from the hospital
Continue Mucinex 600 mg every 12 hours for chest congestion
Prescriptions:
New
guaifenesin 600 mg Tablet Extended Release 12hr
600 mg PO Q12 7 Days Qty: 14 0RF
amoxicillin-pot clavulanate 875-125 mg tablet
1 tab PO Q12H 4 Days Qty: 8 0RF
Continued
atorvastatin 10 mg Tablet
15 mg PO QPM
calcium carbonate 600 mg calcium (1,500 mg) Tablet
600 mg PO BID
ascorbic acid (vitamin C) [Vitamin C] 500 mg Tablet
500 mg PO DAILY
irbesartan 150 mg Tablet
300 mg PO DAILY
Theratrum Complete 50 Plus/Lut Tablet
1 tab PO DAILY
Eliquis 5 mg Tablet
5 mg PO BID
furosemide 20 mg Tablet
40 mg PO DAILY
magnesium oxide 400 mg magnesium Tablet
400 mg PO DAILY
doxazosin 2 mg Tablet
2 mg PO HS
metoprolol succinate 50 mg tablet extended release 24 hr
12.5 mg PO DAILY
levothyroxine [Synthroid] 50 mcg Tablet
50 mcg PO DAILY
Discharge Orders:
Discharge Patient (As Directed); Ordered 02/04/25
Ordered By: Casey Espinosa
Care Plan Goals
Care Plan Goals:
Problem: Readiness for enhanced knowledge related to diagnosis and treatment plan
Goal: Understand your diagnosis and treatment plan needs, including medications if applicable.
Instructions: Know your diagnosis, underlying causes and treatment plan options, including medications if applicable. Consult with your health care team to learn about your diagnosis and treatment plan, including medications if applicable.
Discharge Date and Time
Discharge Date/Time: 02/04/25 17:00
Print Language: AFGHAN

Documented by User: Casey Espinosa DO 02/05/25 12:48
Discharge Summary
Discharge Data
Date of Admission: 02/01/25
Date of Discharge: 02/05/25
Total time spent discharging patient (in min): 37
Discharge Plan
-
Patient Disposition: Home (Routine Discharge)
Discharge Diagnosis/Procedures: Paroxysmal atrial fibrillation/pneumonia/normocytic anemia
Status post DCCV
Condition: Fair
Diet: Regular
Activity: As tolerated
Driving Restrictions: As prior to admission
Bathing Restrictions: OK to Shower
Blood Work: None
Others Tests: None
Referrals:
Erika Rocha MD [Family Provider] - in less than 1 week
Margarette Torre PA-C [Specified Professional Personl] - 02/18/25 3:20 pm (You have a follow up visit with Dr. Farley's Margarette PERERA, in the [facility] office. Please call with questions. )
Additional Discharge Medication Instructions: Continue Augmentin 875-125 mg every 12 hours for 4 more days after discharge from the hospital
Continue Mucinex 600 mg every 12 hours for chest congestion
Prescriptions:
New
guaifenesin 600 mg Tablet Extended Release 12hr
600 mg PO Q12 7 Days Qty: 14 0RF
amoxicillin-pot clavulanate 875-125 mg tablet
1 tab PO Q12H 4 Days Qty: 8 0RF
Continued
atorvastatin 10 mg Tablet
15 mg PO QPM
calcium carbonate 600 mg calcium (1,500 mg) Tablet
600 mg PO BID
ascorbic acid (vitamin C) [Vitamin C] 500 mg Tablet
500 mg PO DAILY
irbesartan 150 mg Tablet
300 mg PO DAILY
Theratrum Complete 50 Plus/Lut Tablet
1 tab PO DAILY
Eliquis 5 mg Tablet
5 mg PO BID
furosemide 20 mg Tablet
40 mg PO DAILY
magnesium oxide 400 mg magnesium Tablet
400 mg PO DAILY
doxazosin 2 mg Tablet
2 mg PO HS
metoprolol succinate 50 mg tablet extended release 24 hr
12.5 mg PO DAILY
levothyroxine [Synthroid] 50 mcg Tablet
50 mcg PO DAILY
Discharge Orders:
Discharge Patient (As Directed); Ordered 02/04/25
Ordered By: Casey Espinosa
Care Plan Goals
Care Plan Goals:
Problem: Readiness for enhanced knowledge related to diagnosis and treatment plan
Goal: Understand your diagnosis and treatment plan needs, including medications if applicable.
Instructions: Know your diagnosis, underlying causes and treatment plan options, including medications if applicable. Consult with your health care team to learn about your diagnosis and treatment plan, including medications if applicable.
Discharge Date and Time
Discharge Date/Time: 02/04/25 17:00
Print Language: AFGHAN
[2025-02-03] MEDS: ROCEPHIN 1000 MG IV (18:06)
[2025-02-03] MEDS: LIPITOR 15 MG PO (18:06)
[2025-02-03] MEDS: STERILE WATER FOR INJECTION 10 ML IV (18:07)
[2025-02-03] MEDS: FLUSH (NSS) 2 FLUSH IV (18:07)
[2025-02-03] MEDS: ROBITUSSIN 100 MG PO ×2 (19:56→23:57)
[2025-02-03] MEDS: LOPRESSOR 2.5 MG IV ×2 (21:28→23:57)
[2025-02-03] MEDS: CARDURA 2 MG PO (21:31)
--- NOTE | 2025-02-03 21:50 | PTCARENOTE ---
Assumed care of the pt @ 1900. Pt AAOx3 A fib on the monitor bp stable Persistent non productive cough. Call [place] within reach. Hospitalist notified for A fib rates 115-130 and for cough. Maryann Monreal SUPERVISOR LIQUEFACTION ordered 2.5 mg Lopressor IVP and Robitussin.
[2025-02-04] VITALS (10 sets, daily range): BP systolic 96–128; BP diastolic 64–90; BMI 21.1
--- NOTE | 2025-02-04 01:30 | W.PN.UPDATE ---
Update Note
Progress Note Update
lopressor 5 mg X1 cardizem
[2025-02-04] MEDS: CARDIZEM 5 MG IV (02:07)
[2025-02-04] MEDS: TYLENOL 650 MG PO (02:11)
[2025-02-04 03:08] LABS: Hematocrit 31.3 % (37.0-47.0); Hemoglobin 10.9 g/dL (12.0-16.0); Mean Corp Hgb Conc. 34.8 g/dL (33.0-37.0); Mean Corpuscular Volume 91.8 fL (81.0-99.0); Mean Platelet Volume 9.5 fL (7.4-10.4); Platelet Count 251 10^3/uL (130-400); Red Blood Cell Count 3.41 10^6/uL (4.20-5.40); Red Cell Dist. Width 12.9 % (11.5-14.5); White Blood Cell Count 9.3 10^3/uL (4.8-10.8)
[2025-02-04 03:22] LABS: Blood Urea Nitrogen 9 mg/dl (7-17); Carbon Dioxide 25 mmol/L (22-30); Chloride 102 mmol/L (98-107); Estimated Creatinine Clearance 59 ml/min; Glucose 112 mg/dl (70-99); Magnesium 1.5 mg/dl (1.6-2.3); Potassium 4.3 mmol/L (3.5-5.1); Sodium 134 mmol/L (135-145); eGFR > 60.00
--- NOTE | 2025-02-04 04:00 | VATNOTE ---
CALLED TO ASSESS PREVIOUS IV SITE IN RAC. PCN HAD ALREADY REMOVED IV. SITE APPEARS SLIGHTLY SWOLLEN AND PINK. NO PALPABLE CORD. AREA IS TENDER TO THE TOUCH . NO DISCHARGE NOTED.ARM ELEVATED ON PILLOW AND SUGGESTED WARM COMPRESSES BE APPLIED FOR 24
HOURS. VAT TO MONITOR. PCN AWARE OF INTERVENTION AND PLAN OF CARE.
[2025-02-04] MEDS: MAGNESIUM SULFATE 50 IV (04:20)
[2025-02-04] MEDS: SYNTHROID 50 MCG PO (04:21)
[2025-02-04] MEDS: DUONEB 3 ML INH ×3 (08:09→16:08)
[2025-02-04] MEDS: TOPROL XL 25 MG PO (08:32)
[2025-02-04] MEDS: AVAPRO 300 MG PO (08:33)
[2025-02-04] MEDS: ELIQUIS 5 MG PO (08:33)
[2025-02-04] MEDS: MUCINEX 600 MG PO (08:33)
[2025-02-04] MEDS: ZITHROMAX 500 MG PO (08:36)
[2025-02-04] MEDS: TOPROL XL PO (09:09)
--- NOTE | 2025-02-04 09:34 | W.PN.CARDCBS ---
Addendum entered and electronically signed by Rolan Leone MD 02/04/25 12:17:
I saw and examined the patient.
The Gasket Supervisor's note was reviewed and I agree with the note.
Comment:
GEN: No distress, awake, Ox3
HEENT: supple, anicteric, mmm
LUNGS: CTA, no wheezes/rales
CV: Reg, S1/S2, 1/6 syst LSB, no gallop
ABD: soft, BS+, NT/ND
EXT: No edema
NEURO: Gross non-focal
SKIN: No rash
Plan:
Back in sinus rhythm after cardioversion. Continue Toprol 25 mg p.o. daily. Continue Eliquis.
Continue Lasix 40 mg daily.
Continue Zithromax.
Continue irbesartan and Cardura.
Original Note:
Today's Communication / Plan
-
NPO for cardioversion today
cont eliquis, uptitrated dose of Metoprolol
Impression / Plan
-
PCP: Dr. Rocha
Acid Pump Operator: Dr. Martine Mendoza
Impression:
Presented with cough, malaise
Pneumonia
Hypomagnesemia
Hyponatremia
Paroxysmal atrial fibrillation w/ RVR
s/p PVI 03/18/2023
Chronic Eliquis AC
Pulmonary HTN
COPD
HTN
HLD
Mild-mod MR by echo 11/2024
RAUL 03/12/2023: EF 55-60%, mild MR, moderate to severe TR, estimated PAP 31 mmHg
Echo 11/26/2023: EF 55-60%, moderate MR, moderate to severe TR, estimated PAP 52 mmHg,
Echo 12/01/2024: EF 54%, mild to mod MR, mod TR, estimated PAP 51 mmHg
Plan:
-Presented with ongoing cough and malaise. Admitted with pneumonia and rapid afib.
-Continues w/ cough. Continue abx per primary service.
-In Afib w/ RVR on initial ECG, reviewed by me. Asymptomatic with A-fib.
-cardizem gtt weaned off 02/03/2025 and transitioned to Toprol 25 mg daily (was on 12.5 mg daily in past due to lower BPs)
-Remains in A-fib with rapid ventricular response, telemetry personally reviewed atrial fibrillation 100s-130s with bursts to 150s
-Given continued elevation in heart rates, will schedule for cardioversion today. Patient made n.p.o. if higher dose of beta-jim needed for rate control, could consider titrating down to outpatient antihypertensives
-Continue Eliquis 5mg BID. Hgb stable 10.9 and patient denies any bleeding issues noted.
-Echo 11/2024 noted preserved EF with stable, mild to moderate MR, no need to repeat at this time.
-Mag 1.5, repletion ongoing. K stable at 4.3
-TSH 1.43. On levothyroxine 50 mcg daily as OP.
-Volume status appears stable. Continue PO lasix 40mg daily.
-Continue current BP regimen w/ irbesartan, doxazosin.
HPI: Jessica is a 74 year old female with PMH of paroxysmal atrial fibrillation s/p PVI, pulmonary HTN, COPD, HTN, HLD, and MR. She presented to [facility] ER after being seen by PCP earlier in the day 02/01/2025 for evaluation of ongoing cough and fatigue
for 1 week. She stated she started to feel quite poorly over the past few days, prompting evaluation. During visit with PCP, she was noted to be back in afib w/ RVR, so was referred to the ER for further workup and management. In ER, she remained in
rapid afib by initial ECG and workup also revealed pneumonia. She was admitted and started on abx and cardizem gtt. Cardiology consulted for evaluation given Afib w/ RVR. She notes despite HR improving into the 70s, continues to feel somewhat poorly
with ongoing cough and malaise. Remains in afib on review of telemetry.
Progress Note - Acid Pump Operator
Subjective
Date of Service: February 04, 2025
Remains in A-fib with RVR
Denies palpitations, lightheadedness, shortness of breath
Objective
Labs:
02/04/25 02:16
02/04/25 02:16
Labs
Hgb 10.9 g/dL (12.0-16.0) L 02/04/25 02:16
Hct 31.3 % (37.0-47.0) L 02/04/25 02:16
Plt Count 251 10^3/uL (130-400) 02/04/25 02:16
Sodium 134 mmol/L (135-145) L 02/04/25 02:16
Potassium 4.3 mmol/L (3.5-5.1) 02/04/25 02:16
BUN 9 mg/dl (7-17) 02/04/25 02:16
Creatinine 0.7 mg/dL (0.6-1.0) 02/04/25 02:16
Glucose 112 mg/dl (70-99) H 02/04/25 02:16
Troponins
02/01/25
12:13
Troponin I < 0.012
Vital Signs and I&O:
Vital Signs
Temp Pulse Resp BP Pulse Ox
97.9 F 135 16 127/88 99
02/04/25 06:57 02/04/25 08:33 02/04/25 08:10 02/04/25 08:33 02/04/25 06:57
Vital Signs
Temp Pulse Resp BP Pulse Ox
97.9 F 135 16 127/88 99
02/04/25 06:57 02/04/25 08:33 02/04/25 08:10 02/04/25 08:33 02/04/25 06:57
Intake & Output
02/02/25 02/03/25 02/04/2525
06:59 06:59 06:59 06:59
Intake Total 460 / 460 300 / 300 960 / 960
Output Total 150 / 150
Balance 460 / 460 150 / 150 960 / 960
Physical Exam
Physical Exam
GEN: No distress, awake, Ox3
HEENT: supple, anicteric, mmm
LUNGS: crackle L base, cleared with cough
CV: tachy, irreg, irreg, 1/6 syst LSB, no murmur
ABD: soft, BS+, NT/ND
EXT: No edema
NEURO: Gross non-focal
SKIN: No rash
--- NOTE | 2025-02-04 09:39 | W.PN.HOSP.TC ---
Today's Communication/Plan
-
Cardiology plans to do cardioversion
Adjust dose of beta jim
continue iv antibiotics
Assessment / Plan
Assessment / Plan
Impression
Patient is a 74-year-old female with past medical history significant for atrial fibrillation s/p cardioversion, s/p ablation, on anticoagulation and rate controlled with beta-blockade, history of emphysema, hypertension, hyperlipidemia presented
from her primary care office with rapid A-fib, heart rate ranging in 150s. Had been out of A-fib for a long time. Admitted with rapid A-fib triggered by pneumonia.
Assessment/plan
#1. Pneumonia complicated by rapid A-fib
10 days of nonproductive cough, remained afebrile, reports some fatigue, denies any palpitations chest pain or shortness of breath
Chest x-ray done in the ED revealed bilateral lower lobe opacities
EKG-rapid A-fib with heart rate ranging in 150s
Legionella and strep pneumoniae antigen negative, COVID-negative, influenza negative
Continue ceftriaxone and azithromycin
Cardizem infusion restarted overnight-as patient heart rate ranging in 120's
Add duonebs 4 hourly
On mucinex to help clear out the air passages
#2 rapid A-fib
Diltiazem restarted overnight given patient's rapid afib
Continue diltiazem, currently at 5 mg/h
Titrate as able
Last echo, November 2024, moderate MR moderate TR, normal left ventricular ejection fraction
Continue Eliquis
cardiology consultation-Plan to do cardioversion today
#3 essential hypertension
Continue irbesartan with holding parameters
Amlodipine on hold given the patient is on Cardizem infusion
Hold Lasix
#4.Normocytic Anemia
Vit B12 Normal
Folate levels normal
Follow Iron studies
#5.hyperlipidemia
Continue statin
DVT prophylaxis-Eliquis
CODE STATUS-full code
Anticipated Discharge: Within 24 hours
Subjective/Interval History
-
Date of Service: February 04, 2025
Patient feeling better
Hasn't eaten yet as cardiology said they might attempt cardioversion today
Objective Data
-
Labs:
Laboratory Results
02/04/25
02:16
WBC 9.3
Hgb 10.9 L
Hct 31.3 L
Plt Count 251
Sodium 134 L
Potassium 4.3
Chloride 102
Carbon Dioxide 25
BUN 9
Creatinine 0.7
Glucose 112 H
Calcium 9.0
Vital Signs:
Vital Signs
Temp Pulse Resp BP Pulse Ox
97.9 F 135 16 127/88 99
02/04/25 06:57 02/04/25 08:33 02/04/25 08:10 02/04/25 08:33 02/04/25 06:57
I&O
02/03/25 02/04/25 02/05/25
06:59 06:59 06:59
Intake Total 300 / 300 960 / 960
Output Total 150 / 150
Balance 150 / 150 960 / 960
Review of Systems
-
All other systems: Reviewed and negative
Physical Exam
-
General: No Apparent Distress, Comfortable and Conversant
HEENT: Moist Mucous Membranes and Anicteric
Respiratory: Wheezes (scatterd), Crackles (bilateral coarse) and Chest Tubes (Harsh vesicular breathing)
Cardiac: Irregular Rhythm (irregularly) and Tachycardic
GI: Soft, Nontender, Nondistended and Normal Bowel Sounds
Musculoskeletal: No Clubbing, No Cyanosis and No Edema
Skin: Warm and Dry
Neuro: Awake, Oriented and No Motor Deficits
Psych: Calm
--- NOTE | 2025-02-04 09:56 | PTCARENOTE ---
Rec'd pt this shift awake and alert in bed. Pt Afib on monitor. AM meds given. Pt NPO for possible cardioversion today. Pt denies pain, denies sob. See worklist for VS/I and O and assessments.
--- NOTE | 2025-02-04 11:24 | CM ---
CM following for DC planning needs.
Met w/ patient at bedside. DC was cancelled as planned on 02/03.
DC plan continues to be anticipated for home without needs.
CM to follow.
--- NOTE | 2025-02-04 11:41 | PTCARENOTE ---
Report given to manager cath lab. Pt NPO for cardioversion.
--- NOTE | 2025-02-04 12:15 | ITS.CL.CARDI ---
Paediatrician - Cardioversion
Cardioversion
Procedure Report:
Date of Procedure: 02/04/25
Procedure: Cardioversion
Indication: Symptomatic atrial fibrillation
Performing Physician: Van Leone MD
Technique: The patient was brought to the holding area. Signed informed consent was obtained. A time out was called and performed. The patient was anesthetized by the anesthesia service. Anticoagulation status was reviewed and appropriate. R2 pads
were placed anteriorly and posteriorly. A 200 J synchronized biphasic shock restored normal sinus rhythm without significant bradycardia. There were no complications.
Conclusion: Uncomplicated cardioversion from atrial fibrillation to sinus rhythm.
Recommendation: Routine post cardioversion care. 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
--- NOTE | 2025-02-04 13:14 | PTCARENOTE ---
Pt returned from cardioversion. NSR on monitor. Pt awake and alert with no complaints of pain.
--- NOTE | 2025-02-04 18:32 | PTCARENOTE ---
[id number]: Handoff report received from Jerilyn MIRAMONTES at 1500. patient in room at this time. Denies pain, AOx4, NSR 80s-100s at this time, RA with frequent nonproductive cough. D/c orders in. D/c paperwork gone over with patient, all questions answered.
IVs and tele removed. patient taken to lobby via wheelchair in stable condition.
== END 2025-02-04 17:00 | disposition home or self-care (01) | DRG 308 ==
LOC: IVU 19:43
PROVIDERS: Emergency Medicine; Internal Medicine Cardiovascular Disease; Nurse Practitioner Family; ADMITTING PHYSICIAN Internal Medicine; ATTENDING PHYSICIAN Internal Medicine; EMERGENCY PHYSICIAN Emergency Medicine; FAMILY PHYSICIAN Emergency Medicine; OTHER PHYSICIAN Internal Medicine Cardiovascular Disease
PROC: 5A2204Z Restoration of Cardiac Rhythm, Single (ICD-10-PCS; 2025-02-04)
DX: I48.0 Paroxysmal atrial fibrillation (principal); J18.9 Pneumonia, unspecified organism; J44.0 Chronic obstructive pulmonary disease with (acute) lower respiratory infection; E87.1 Hypo-osmolality and hyponatremia; Z79.01 Long term (current) use of anticoagulants; D64.9 Anemia, unspecified; I27.20 Pulmonary hypertension, unspecified; E78.00 Pure hypercholesterolemia, unspecified; I10 Essential (primary) hypertension; E83.42 Hypomagnesemia; G47.30 Sleep apnea, unspecified; I25.10 Atherosclerotic heart disease of native coronary artery without angina pectoris; I70.0 Atherosclerosis of aorta; J43.9 Emphysema, unspecified; M41.9 Scoliosis, unspecified; Z79.890 Hormone replacement therapy; Z79.899 Other long term (current) drug therapy; Z87.891 Personal history of nicotine dependence; Z90.49 Acquired absence of other specified parts of digestive tract; Z11.52 Encounter for screening for COVID-19
CPT/HCPCS: 71046; 80048; 80053; 82607; 82728; 82746; 83550; 83735; 83880; 84443; 84484; 85025; 85027; 85045; 87205; 87449; 87502; 87811; 87899; 92960; 93005; 94640; 96374; 97162; 97165; 99291

== ENCOUNTER → 2025-02-16 07:51 | Outpatient (REF) | payer OTHER, SELFPAY | LOC: RAD 07:51 | PROVIDERS: ATTENDING PHYSICIAN Emergency Medicine | DX: R10.32 Left lower quadrant pain (principal) | CPT/HCPCS: 74177; Q9967 ==

== ENCOUNTER → 2025-03-23 13:35 | Outpatient (REF) | payer OTHER, SELFPAY | LOC: RAD 13:35 | PROVIDERS: ATTENDING PHYSICIAN Emergency Medicine | DX: J15.9 Unspecified bacterial pneumonia (principal) | CPT/HCPCS: 71046 ==

== ENCOUNTER → 2025-06-28 11:48 | Outpatient (REF) | payer OTHER, SELFPAY ==
[2025-06-28 15:07] LABS: Blood Urea Nitrogen 31 mg/dl (7-17); Calcium 9.5 mg/dl (8.4-10.2); Carbon Dioxide 26 mmol/L (22-30); Chloride 101 mmol/L (98-107); Glucose 91 mg/dl (70-99); Magnesium 1.7 mg/dl (1.6-2.3); Potassium 4.9 mmol/L (3.5-5.1); Sodium 136 mmol/L (135-145); eGFR 52.08
== END ==
LOC: REG 11:48
PROVIDERS: ATTENDING PHYSICIAN Physician Assistant; FAMILY PHYSICIAN Family Medicine
DX: N17.9 Acute kidney failure, unspecified (principal)
CPT/HCPCS: 36415; 80048; 83735

== ENCOUNTER 2025-07-01 08:07 | Day surgery (SDC) | payer OTHER, SELFPAY ==
[2025-06-21 10:26] VITALS: BMI 21.6
--- NOTE | 2025-06-21 10:33 | HPS.HSE ---
Family Physician
-
Family Physician: Curry Dutton DO
Chief Complaint
-
Persistent atrial fibrillation.
History of Present Illness
The patient is a 74 year old female presenting today for persistent atrial fibrillation. She was initially diagnosed with atrial fibrillation in 2018. The patient reports rapid heart rates, shortness of breath, palpitations at bedtime, and
overall fatigue secondary to this diagnosis. She previously underwent 3 cardioversions and pulmonary vein isolation in February 2023 for her arrhythmia. She was admitted to [facility] in January 2025 for pneumonia and was noted to be
back in atrial fibrillation during that admission. She is on current pharmacological therapy with Metoprolol Succinate. She does report compliance with Eliquis for oral anticoagulation due to a [id number] of 4. Given her significant symptoms, she
is interested in pursuing with recurrent pulmonary vein isolation for more definitive arrhythmia management. She denies any current complaints today such as chest pain, shortness of breath at rest, nausea, vomiting, diarrhea, lightheadedness,
dizziness, sore throat, or fever. She does report a mild cough associated with her COPD/emphysema and chronic post-nasal drip.
Medical History
Past Medical History
Past Medical History: Reports Other
Additional Past Medical History:
1. Persistent atrial fibrillation, status post cardioversion x3 and pulmonary vein isolation 02/2023; pharmacological therapy with Metoprolol Succinate and oral anticoagulation with Eliquis.
2. Supraventricular tachycardia noted on previous Holter monitor.
3. Hypertension.
4. Hyperlipidemia.
5. Thoracic aorta atherosclerosis.
6. Pulmonary hypertension.
7. Mild-moderate mitral regurgitation.
8. Moderate tricuspid regurgitation.
9. Chronic venous insufficiency with varicosities.
10. COPD/emphysema with history of tobacco abuse.
11. Pulmonary nodule.
12. Obstructive sleep apnea, no current device.
13. Recent acute kidney injury, improving with reduction of Furosemide dosing.
14. Diverticulosis.
15. Probable irritable bowel syndrome with diarrhea.
16. Hypothyroidism.
17. Chronic anemia.
18. Gout.
19. Chronic post-nasal drip.
20. Bilateral cataracts, awaiting surgery.
21. Osteopenia.
22. Hypomagnesemia, on oral supplementation.
23. Mildly elevated transaminase.
24. Remote history of tobacco abuse.
25. Daily alcohol.
Past Surgical History: Reports Other
Additional Past Surgical History:
1. Pulmonary vein isolation.
2. Cardioversion x3.
3. Bilateral lower extremity venous varicosity stripping.
4. Appendectomy.
5. Logan tooth extraction.
6. Colonoscopy x3.
Social History
Tobacco: Former Smoker (She is a former less than 1 pack per day cigarette smoker who quit tobacco altogether in 2006. )
Alcohol: Daily (She drinks 1-2 glasses of wine most evenings. )
Living: Other (She lives with her son and her twin 4 year old granddaughters in a 4 story townhouse. )
Family History
Family History: Not pertinent
Allergies / Home Medications
Allergy/Medication List:
Home medications:
1. Ascorbic acid 500 mg p.o. daily.
2. Atorvastatin 15 mg p.o. every evening.
3. Caltrate 1200 mg p.o. at bedtime.
4. Doxazosin 2 mg p.o. at bedtime.
5. Eliquis 5 mg p.o. twice a day.
6. Furosemide 20 mg p.o. daily.
7. Irbesartan 150 mg p.o. daily.
8. Synthroid 50 mcg p.o. daily.
9. Magnesium oxide 400 mg p.o. twice a day.
10. Metoprolol Succinate 50 mg p.o. daily.
11. Multivitamin 1 tablet p.o. daily.
12. Fish oil 1 capsule p.o. twice a day.
Allergies: Dilaudid.
Review of Systems
-
A 12 point ROS was completed and negative except as noted: Yes
Physical Exam
Vital Signs
Blood pressure 147/85. Heart rate 125. Respirations 18. Pulse ox 100% on room air.
Height 5 feet, 4 inches. Weight 57 kg. BMI 21.6.
Physical Exam
General: Well Developed, Well Nourished and No Apparent Distress
HEENT: NormoCephalic, Moist mucous membranes, Atraumatic and PERRLA
Respiratory: Clear
Cardiac: Irregular Rhythm
GI: Soft, Non Tender and Non Distended
Musculoskeletal: No Edema and Normal Gait & Station
Skin: Warm and Dry
Neuro: AO x 3 and Nonfocal/grossly intact
Laboratory Results
-
DIAGNOSTIC STUDIES as of 06/21/2025: White blood cell count 5.6. Hemoglobin 11.8. Platelet count 133,000. PT 20.8. INR 1.77. Sodium 136. Potassium 4.7. BUN 37. Creatinine 1.2. Glucose 76. Calcium 9.7. Magnesium 1.7. AST 40. ALT 32. Albumin 4.6. Type
and screen A positive.
DIAGNOSTIC STUDIES as of 06/28/2025: Sodium 136. Potassium 4.9. BUN 31. Creatinine 1.1. Glucose 91. Calcium 9.5. Magnesium 1.7.
EKG 06/21/2025: Atrial flutter with variable AV block. Low voltage QRS. Nonspecific T wave abnormality.
Echocardiogram 12/01/2024: Normal left ventricular size, wall thickness, and systolic function. No regional wall motion abnormalities are seen. LV ejection fraction is 54% by Paula's biplane method of discs. Diastolic function indeterminate.
Normal right ventricular size and function. Thickened mitral valve leaflets. Mitral valve opens normally. Mild to moderate mitral regurgitation. Mildly thickened trileaflet aortic valve with normal leaflet excursion. No aortic regurgitation is seen.
Tricuspid valve opens normally. Moderate tricuspid regurgitation. Estimated pulmonary artery pressure of 51 mmHg assuming a right atrial pressure of 3 mmHg. Compared to prior study of 11/26/2023, no significant change noted.
Impression/Plan
-
IMPRESSION/PLAN:
1. Persistent atrial fibrillation: The patient is in need of a pulmonary vein isolation with Dr. Jaime Mendoza on 07/01/2025. The benefits and risks of the procedure have been explained to the patient. The patient understands these risks and
wishes to proceed. Her heart rate was notably elevated the morning of her pre-admission testing; however, she reports she had not taken her daily Metoprolol prior to coming in. She was advised to take this medication as soon as she goes home for
optimal rate control. She will not be required to undergo a pre-procedural transesophageal echocardiogram as she has been compliant with her home oral anticoagulation. She is aware to continue Eliquis uninterrupted prior to her ablation. She will
take no medications the morning of her ablation.
2. Recent acute kidney injury: The patient's Furosemide was recently decreased from 40 to 20 mg p.o. daily dosing. With this, her renal function is improving, as noted by her 06/28/2025 BMP. Renal function expected to continually improve while on
this dosage. She can proceed with surgery as planned.
[2025-06-21 11:16] LABS: Hematocrit 36.2 % (37.0-47.0); Hemoglobin 11.8 g/dL (12.0-16.0); Mean Corp Hgb Conc. 32.6 g/dL (33.0-37.0); Mean Corpuscular Volume 90.7 fL (81.0-99.0); Nucleated Red Blood Cells % 0 %; Platelet Count 133 10^3/uL (130-400); Red Cell Dist. Width 14.0 % (11.5-14.5)
[2025-06-21 11:24] LABS: INR 1.77; PT 20.8 Sec (11.4-14.6)
[2025-06-21 11:37] LABS: ALT (SGPT) 32 U/L (0-35); AST (SGOT) 40 U/L (14-36); Albumin 4.6 g/dl (3.5-5.0); Alkaline Phosphatase 112 U/L (38-126); Calcium 9.7 mg/dl (8.4-10.2); Carbon Dioxide 25 mmol/L (22-30); Chloride 101 mmol/L (98-107); Estimated Creatinine Clearance 34 ml/min; Glucose 76 mg/dl (70-99); Magnesium 1.7 mg/dl (1.6-2.3); Potassium 4.7 mmol/L (3.5-5.1); Sodium 136 mmol/L (135-145); Total Protein 7.3 g/dl (6.3-8.2); eGFR 46.91
[2025-06-21 11:56] LABS: Blood Urea Nitrogen 37 mg/dl (7-17)
[2025-07-01] VITALS (12 sets, daily range): BP systolic 81–134; BP diastolic 51–103; BMI 21.6
[2025-07-01] MEDS: TYLENOL 1000 MG PO (10:00)
[2025-07-01 11:11] LABS: ACT-LR - POC 364 Seconds (116-155)
--- NOTE | 2025-07-01 12:16 | ITS.CL.ABL ---
Learning And Development Coordinator - Ablation
Ablation
Procedure Report:
ELECTROPHYSIOLOGIC STUDY AND POSSIBLE ABLATION
DATE: July 01, 2025
Primary Care Provider: �Dr. MORENITA MARTINEZ
Primary Oenologist: Dr Martine Mendoza
INDICATION:
Symptomatic Atrial Fibrillation.
Persistent
HISTORY: See H and P.
Symptomatic AF, poorly controlled with attempted medical therapy.
Atrial fibrillation was initially diagnosed in 2018She underwent EP study and ablation 03/18/2023 which included pulmonary venous isolation as well as posterior wall isolation using the cryoballoon.
Post ablation she was somewhat bradycardic and Toprol was eventually reduced.
Amiodarone was maintained at 200 mg daily and then discontinued 08/23/2023. She has remained on oral anticoagulation with no major bleeding complications and given her elevated background thromboembolic. She is [id number] VASC -score of 5.
She has now recurred with symptomatic atrial fibrillation. Persistent.
HAS-BLED: 1
Age
CHADSVASc: 5
HTN
Age
Vascular Dz:known aortic plaque, thoracic aorta
F Gender
PRESENTING RHYTHM: AF
HISTORY: See H and P.
Symptomatic AF, poorly controlled with attempted medical therapy.
ANTICOAGULATION: Apixaban 5 mg twice daily
'TIME-OUT': called and confirmed.
SEDATION/ANESTHESIA: provided via the anesthesia department using general anesthesia.
PROCEDURE:
Ultrasound Guidance with real-time visualization of needle insertion and vessel patency performed by vt for femoral venous Vascular Access.
Under real-time US guidance, the needle was advanced with negative pressure into the vein. The needle was seen entering the vessel lumen with a good return of dark red flow, the syringe was removed, non-pulsatile, dark red blood low was noted and
the wire was passed without difficulty, then the needle was removed. US confirmed the wire was in the vein, not going into an artery,
Images were taken and saved for the patient's permanent record. Imaging findings typical femoral venous anatomy. Direct visualization of needle puncture into the femoral vein was observed and recorded.
3 sheaths were inserted into the right femoral vein.
10 Fr, 10Fr, 7 Fr a 10fr sheath was then exchanged for the 16.8 Fr Faradrive deflectable sheath and dilator over a wire.
A decapolar CS catheter was positioned within the CS for mapping and pacing.
The intracardiac ultrasound catheter was positioned in the RA for continuous intracardiac ultrasound imaging.
Heparin bolus and infusion to target ACT at 300 -350 seconds was administered. Transseptal puncture was performed. This entailed advancing a sheath with dilator into the superior vena cava and withdrawing both (monitoring intracardiac ultrasound,
fluoroscopy and tip pressure) with the tip oriented toward the atrial septum. The fossa ovalis was engaged (indicated by sudden displacement of the sheath tip as well as tenting of the fossa seen on intracardiac ultrasound).
The [employer] transseptal system was used. Left atrial catheter position was confirmed by echocardiographic imaging and fluoroscopy followed by RF delivery using the [employer] system resulting in successful LA access with pressure monitoring
demonstrating LA pressure waveforms (LA mean pressure 26 mm Hg). The sheath was advanced over the dilator and positioned in the left atrium.
The [employer] Grid multipolar mapping catheter was initially positioned through the transseptal sheath for high density mapping.
Cardioversion resulted in sinus rhythm within atrial fibrillation rapidly recurred.
Geometry and voltage mapping was performed using the Ar[employer] multipolar grid catheter. Ensite-X was utilized for three-dimensional electroanatomical mapping.
A 3-D map was created using Ensite-X in Voxel mode. A 3-D reconstructed CT image was compared to the 3-D Navex map to assist in anatomic evaluation, mapping and ablation.
The [employer] PFA catheter and system was used for cardiac ablation. Catheter positioning was guided and confirmed using both I.C.E. and fluoroscopy.
Ablation strategy included PVI as well as mapping for extra PV contributors to atrial fibrillation which would also be targeted if present.
High density electroanatomical three-dimensional mapping demonstrated four PVs: LSPV, LIPV, RSPV, RIPV with reconnection observed at the right inferior and left inferior pulmonary veins.
Delivery of pulsed electric field energy we isolated the pulmonary veins.
After accomplishing pulmonary venous isolation, mapping identified additional areas likely to be extra PV contributors to atrial fibrillation. These areas demonstrated patchy low voltage as well as complex fractionated electrograms. These areas can
be sites for the formation of rotors which can drive and maintain atrial fibrillation. These areas are known to be significant contributors to initiation and perpetuation of atrial fibrillation.
Additional energy applications/additional ablation sets targeted extra PV contributors to atrial fibrillation.
Targets for additional PFA ablation included:
LA posterior wall targeted with pulsed electric field energy isolating the posterior wall of the left atrium
(Note, in 2022 posterior wall ablation with cryoballoon was performed but today's mapping finds reconnection at the posterior wall which is now targeted with PFA)
After ablation of the posterior wall, additional targets were addressed:
LA inferior floor
The ridge of tissue between the left atrial appendage and the left sided pulmonary veins (Ligament of Tayo)
These areas were ablated using pulsed electric field energy eliminating the extra PV contributors to atrial fibrillation.
Post ablation mapping finds entrance and exit block at each of the pulmonary veins (LSPV, LIPV, RSPV, RIPV), the LA posterior wall and at the additional lines at Inferior/floor of the LA and the Ligament of Marshal rendering the sites no longer
able to contribute to atrial fibrillation.
Programmed electrostimulation induced a regular atrial tachycardia at 490 ms. Entrainment from both the proximal and distal coronary sinus catheter pulse findings that the mitral valve annulus is outside the tachycardia circuit.
I did not electroanatomical mapping was performed but the rhythm terminated to sinus. Multiple subsequent induction attempts were able to induce only short duration self terminating atrial tachycardia with the same activation sequence, proximal to
distal along the coronary sinus but at varying cycle lengths between 370 and 510 ms. All nonsustained or shortly sustained with self termination which did not allow adequate mapping.
I.C.E. :
Pre-Ablation Post-Ablation
LVEF: 55 % 55 %
WMA: none none
Pericardial effusion: Trace trace
LA Pressure 26 (AF) 19 (SR)
COMPLICATIONS:
none
SUMMARY:
- Mapping and ablation to isolate the PVs resulting in electrical isolation of the pulmonary veins
- Additional AF ablation sets X 3 after PVI (LA posterior wall, Inf/floor of the LA posterior wall, Ligament of Tayo) resulting in elimination of the targeted extra PV contributors to atrial fibrillation.
- 3-D Electroanatomical Mapping
- Intracardiac Ultrasound
- Ultrasound guidance for vascular access
Post ablation, I discussed today's findings and results with the patient's son, Isauro.
RECOMMENDATIONS:
- Observe in monitored bed.
- Maintain oral anticoagulation.
- Office visit with Jennifer Tello NP in 3 to 4 months
- Continue cardiovascular care with primary fx artist, Dr. Martine Mendoza
Copy to:
Primary Care Provider: �Dr. MORENITA MARTINEZ
Primary Oenologist: Dr Martine Mendoza
--- NOTE | 2025-07-01 12:30 | PTCARENOTE ---
SVT in 140s noted on monitor, pt arouses easily and denies any symptoms, BP 94/77, Ella DUNCAN made aware, will give po toprol XL- see mar
[2025-07-01] MEDS: LASIX 40 MG IV (12:39)
[2025-07-01] MEDS: TOPROL XL 50 MG PO (12:50)
--- NOTE | 2025-07-01 13:25 | PTCARENOTE ---
SVT remains sustained, pt resting in bed without symptoms, Ella DUNCAN at bedside to assess pt, EKG done as requested
[2025-07-01 14:57] LABS: ACT-LR - POC > 397 Seconds (116-155)
[2025-07-01] MEDS: RYTHMOL 450 MG PO (15:10)
--- NOTE | 2025-07-01 16:05 | PTCARENOTE ---
Remains in SNT, HR currently 119, pt remains asymptomatic
--- NOTE | 2025-07-01 16:10 | W.PN.UPDATE ---
Update Note
Progress Note Update
74 yo WF s/p PVI (Same day). She denies cp, sob, donaldo diet, voiding, R fem site c/d/i, EKG initially was SR/SB then shortly after recovery tele showed AT HR 120-150's. She was given propanolol 600mg po and home metoprolol 50mg. She will continue
propanolol 150mg tid. She will resume Eliquis tonight. She was given IV lasix 40mg for elevated filling pressures. She will resume PO lasix tomorrow. Activity restrictions reviewed. She will f/u Dr. Farley in 3 mo. She is for d/c home after 445p if
groin stable and not dizzy when ambulating.
== END 2025-07-01 16:50 | disposition home or self-care (01) ==
LOC: CATH 08:07
PROVIDERS: ATTENDING PHYSICIAN Internal Medicine Cardiovascular Disease; FAMILY PHYSICIAN Family Medicine; OTHER PHYSICIAN Internal Medicine Cardiovascular Disease
DX: I48.19 Other persistent atrial fibrillation (principal); I47.10 Supraventricular tachycardia, unspecified; E03.9 Hypothyroidism, unspecified; E78.5 Hyperlipidemia, unspecified; G47.33 Obstructive sleep apnea (adult) (pediatric); I08.1 Rheumatic disorders of both mitral and tricuspid valves; I10 Essential (primary) hypertension; I27.20 Pulmonary hypertension, unspecified; I87.2 Venous insufficiency (chronic) (peripheral); J18.9 Pneumonia, unspecified organism; J43.9 Emphysema, unspecified; M10.9 Gout, unspecified; M85.80 Other specified disorders of bone density and structure, unspecified site; Z87.891 Personal history of nicotine dependence; Z79.01 Long term (current) use of anticoagulants; Z79.890 Hormone replacement therapy; Z79.899 Other long term (current) drug therapy; Z88.5 Allergy status to narcotic agent; Z90.49 Acquired absence of other specified parts of digestive tract
CPT/HCPCS: C1732; C1894; C1769; C1730; C1892; 36415; 80053; 83735; 85025; 85347; 85610; 86850; 86900; 86901; 93005; 93656; 93657; C1733; C1766

== ENCOUNTER 2025-07-01 23:35 | Inpatient (IN) | payer OTHER, SELFPAY ==
[2025-07-01] VITALS (26 sets, daily range): BP systolic 59–131; BP diastolic 39–103; BMI 22.4
[2025-07-01 20:44] LABS: Glucose - Point of Care 114 mg/dl (70-99)
--- NOTE | 2025-07-01 20:57 | ED.GENMED ---
History of Present Illness
General
Chief Complaint: Fainting/Passed Out
Source: patient
Time Seen by Provider: 07/01/25 20:45
History of Present Illness
History of Present Illness:
This patient is a 74-year-old female status post PVI earlier today, discharged at approximately 5:30 PM as per medics. In the PACU, patient was noted to have episode of atrial tachycardia to the 120s to 150s. She was given 600 mg of propranolol
and as per patient also given 50 mg of metoprolol. She has not taken any medication since she returned home. She describes sitting on the couch and just feeling dizzy. That is the last she remembers. Her son told medics that she fell forward,
with a suspected syncopal episode. Upon medic arrival, patient was noted to be bradycardic in the 30s to 40s and hypotensive. 1 mg of atropine was administered and her heart rate went up to the 50s. Patient states that she feels cold and tired.
Upon initial evaluation she denied headache. She denies neck pain, numbness, tingling, chest pain, shortness of breath, abdominal pain, nausea, vomiting. Of note, patient states that her right leg felt a little numb and tingly earlier today while
she was in the recovery area but this is since fully resolved.
Past History
Past History
ED Past Medical History: Arrthythmia (afib), HTN and Hypercholesterolemia
ED Past Surgical History: Cardiac
Social History
Tobacco: Non-smoker
Drug: None
Living: with family
Phy Exam
Physical Exam
Physical Exam:
GENERAL: Awake but tired appearing, in no apparent distress
EYE: pupils equal and reactive, no photophobia, conjunctiva pink, EOMI, no nystagmus
NECK: Supple, no significant adenopathy, no midline tenderness.
ENT: o/p clr, mmm, no espitia, no raccoon. There is a superficial abrasion noted at the nasal bridge with tenderness to palpation but no obvious deformity. No septal hematoma. There is dried blood at patient's lips without evidence of intraoral
injury (suspect related to dried blood at nose') teeth are stable. No signs of head or facial injury noted with the exception of nose. No crepitus or tenderness palpation of remaining facial bones
CARDIAC: Regular rate and rhythm, bradycardic.
LUNGS: Clear breath sounds bilaterally, no acute respiratory distress, no wheezes/rales/rhonchi
ABDOMEN: Soft, without focal tenderness, no r/g, no cvat
NEUROLOGICAL: Alert and oriented, no focal neuro deficits
SKIN: Warm and dry, skin intact. Right inguinal site with pressure dressing in place, it is blood-tinged, no active extravasation
MUSCULOSKELETAL: No edema, well perfused.
PSYCH: Normal and appropriate interaction.
Course
Orders/Labs/Results
Orders:
Orders
07/01/25 20:47
Atropine Sulfate [Atropine 0.1 mg/ml Syringe] 1 mg .ROUTE .STK-MED ONE
07/01/25 20:53
CT Head W/o Iv Contrast Urgent
Comment:
Reason For Exam: syncope, headstrike on eliquis
07/01/25 20:54
CT Facial Bones W/o Iv Contras Urgent
Comment:
Reason For Exam: fall, facial trauma, on eliquis
07/01/25 20:56
Cardiac Monitoring- Treatment ONCE
07/01/25 20:59
Atropine Sulfate [Atropine 0.1 mg/ml Syringe] 1 mg .ROUTE .STK-MED ONE
07/01/25 21:03
Atropine Sulfate [Atropine 0.1 mg/ml Syringe] 1 mg .ROUTE .STK-MED ONE
07/01/25 21:04
Complete Blood Count/No Diff Urgent
Comprehensive Metabolic Panel Urgent
Creatine Phosphokinase Urgent
Comment: ADD ON
Troponin I Urgent
07/01/25 21:10
Atropine Sulfate [Atropine 0.1 mg/ml Syringe] 1 mg IV NOW STA
07/01/25 21:35
Calcium Gluconate 1,000 mg IV NOW STA
Dextrose 50%-Water [Dextrose 50% Syringe] 25 grams IV NOW STA
Furosemide [Lasix] 40 mg IV NOW STA
Insulin Human Regular [Novolin R] 5 units IV NOW STA
Sodium Bicarbonate 50 meq IV NOW STA
Sodium Zirconium Cyclosilicate [Lokelma] 10 gram PO NOW STA
07/01/25 21:36
Bedside Glucose PRE IV Insulin- HyperK+ NOW
07/01/25 22:55
NORepinephrine 4 MG/250 ML [Levophed] 4 mg in 250 ml .ROUTE .STK-MED
07/01/25 22:59
0.9% Sodium Chloride 1000 ml [Nss] 1,000 ml IV BOLUS
07/01/25 23:00
NORepinephrine 4 MG/250 ML [Levophed] 4 mg in 250 ml IV PER PROTOCOL
Initial dose in mcg/min, then titrate:: 4
Titrate to keep:: MAP > 65 mmHg
Titrate by mcg/min:: 1-2 mcg/min
Frequency of titrations (minutes):: 5
Maximum dose in ICU in mcg/min:: 30
Maximum dose in IMU in mcg/min:: 8
Maximum dose in IVU in mcg/min:: 4
Begin to taper infusion when:: Remained at goal for 4hrs
Taper by mcg/min:: 1-2 mcg/min
Frequency of taper (minutes) if patient maintains goal:: 30
Taper to off?: Yes
If infusion off & no longer maintaining goal:: Contact Provider
US Abdomen Complete/Upper Stat
Comment:
Reason For Exam: eval for cholecystitis/choledocholithiasis
07/01/25 23:01
CR Chest Portable - 1 View Stat
Comment:
Reason For Exam: eval for infiltrate/aspiration
Reason Study Needs to be Portable: Patient Unstable
07/01/25 23:06
Bedside Glucose POST IV Insulin- HyperK+ Q1HX2,Q2HX2
07/01/25 23:25
Blood Culture Q30M
ANNABELLA Source: Blood/Venous
Specimen Description:
Blood Culture Q30M
ANNABELLA Source: Blood/Venous
Specimen Description:
07/01/25 23:29
Acetaminophen 1000MG/100Ml [Ofirmev] 1,000 mg in 100 ml IV ONCE
Acetaminophen IV Indication:: No ND & No Enteral Access
07/01/25 23:34
Add On- LAB Stat
Tests Added?: CPK
07/02/25 00:07
Potassium Urgent
Comment: draw 2 hours after regular insulin IV administration
Abnormal Lab Results
07/01/25 07/01/25 07/01/25
20:43 21:04 21:41
RBC 4.11 L 10^6/uL
(4.20-5.40)
MCHC 32.1 L g/dL
(33.0-37.0)
RDW 14.7 H %
(11.5-14.5)
Sodium 134 L mmol/L
(135-145)
Potassium 6.8 H* mmol/L
(3.5-5.1)
Carbon Dioxide 19 L mmol/L
(22-30)
BUN 36 H mg/dl
(7-17)
Creatinine 1.6 H mg/dL
(0.6-1.0)
Glucose 139 H mg/dl
(70-99)
Total Bilirubin 5.6 H mg/dl
(0.2-1.3)
AST 290 H U/L
(14-36)
ALT 150 H U/L
(0-35)
Creatine Kinase 174 H U/L
(30-135)
Troponin I 10.700 H* ng/ml
POC Glucose 114 H mg/dl 112 H mg/dl
(70-99) (99)
07/01/25 07/01/25
22:24 23:20
RBC
MCHC
RDW
Sodium
Potassium
Carbon Dioxide
BUN
Creatinine
Glucose
Total Bilirubin
AST
ALT
Creatine Kinase
Troponin I
POC Glucose 174 H mg/dl 196 H mg/dl
(99) ()
07/01/25 21:04
07/01/25 21:04
Vital Signs
Initial and Last Documented VS:
Initial Vital Signs
Pulse Resp BP
60 24 131/103
07/01/25 20:36 07/01/25 20:36 07/01/25 20:36
Last Documented Vital Signs
Temp Pulse Resp BP Pulse Ox
97.5 F 80 16 106/68 98
07/08/25 15:05 07/08/25 15:31 07/08/25 15:05 07/08/25 15:31 07/08/25 15:05
*Pulse Oximetry
SaO2: 94
Oxygen Mode of Delivery: Room air
Patient hypoxic: no
*Critical Care Note
Total Time (30-74mins, 75-104mins- exclusive of procedures): 40
Update Note
Update Note:
Patient presents to the Emergency Department with ____syncope
Number and Complexity of Problems Addressed at the Encounter
� Chronic conditions affecting care:
� Acute Exacerbation and/or Progression of Chronic Illness:
� Differential Diagnosis includes: But not limited to facial fracture, intracranial bleed, arrhythmia, ACS, PE etc. etc.
Amount and/or Complexity of Data to be Reviewed and Analyzed
� I performed an independent evaluation of and my interpretation is:
EKG: Read by me, sinus bradycardia, nonspecific T wave flattening inferiorly
CT:Subtle fracture of the anterior nasal bones.
No other fracture is identified.
head ct: No evidence of acute intracranial abnormality.
Focal area of CSF density in the left paramedian parietal region, as described. This most likely represents a focal area of encephalomalacia from old infarction. Main differential consideration of arachnoid cyst.
Xrays:
Laboratory Studies: See below
Other:
� Review of other/old records reveals: Patient's discharge/course of care today by cardiology noted by me see above details in H&P
� Clinical information was obtained by an independent historian: Son who is bedside
� Prescriptions/Medications Considered but not given:
� Further testing considered but not performed: Consideration for further workup for PE however thought to be extremely unlikely given patient is fully anticoagulated and denies pleuritic chest pain or dyspnea.
Risk of Complications and/or Morbidity or Mortality of Patient Management
� Social determinants of health affecting care:
� Discussion with other providers (PCP, Hospitalists, Consultants, etc):
� Escalation of care including admission/observation vs risk of discharge considered: Patient noted to be moderately hypotensive here upon presentation. She will be placed on pads, atropine to the bedside, IV fluids started,
blood pressure is responding with a systolic blood pressure in the low 100s. She is now reporting a headache, and as a result CAT scan was prioritized and she is going for this exam STAN accompanied by the RN and monitor.
9:40 PM potassium resulted at 6.8, in comparison to June 28 this is a change, at which time it was 4.9. Troponin is 10.7 today which may be somewhat of a consequence of her procedure today, plus minus demand ischemia from a vent tonight. New
renal insufficiency with a GFR now of 33. Nonspecific LFT elevations. Son now at bedside, he was updated regarding findings thus far and plan of care. RN to administer meds for hyperkalemia and we will reassess promptly.
Many, many reassessments and monitoring of pt status. She denies new sxs. Son still at bedside and being updated. Meds administered, hr now 50-60's, but bp still soft (most recent sbp 90). Somewhat cautious with ivf given pmh, but they have been
administered, as well as atropine. May need low dose epi gtt to maintain bp overnight. Will recheck labs, ex. K, in next 2 hrs. Pt for ICU admissino, d/w Dr Orozco. Case also d/w cards, Dr Vasquez, no further recommendations, agrees with plan.
ED Attending Note
-
Portions of this chart may have been created with voice recognition software.� Occasional wrong word or��sound alike� substitutions may have occurred due to the inherent limitations of voice recognition software.
Discharge Plan
Departure
Patient Disposition: Admit
Date of Disposition: 07/01/25
Time of Disposition: 22:32
Admit to: ICU
Presentation/result/management discussed w/ accepting MD/DO: Hospitalist
Condition: Critical
Discharge Problem:
Bradycardia, Closed fracture nasal bone
Interventions
Interventions:
*Risk Screen - Suicide Last Done: 07/01/25 20:37
*General Assessment Last Done: 07/01/25 20:37
*Neglect/Abuse Screening Last Done: 07/01/25 20:37
*ED- Fall Risk Assessment Last Done: 07/01/25 20:51
*ED COVID-19 Vaccine History Last Done: 07/01/25 20:51
*ED Influenza Vaccine History Last Done: 07/01/25 20:51
*Nursing Disposition Last Done: 07/02/25 01:35
ED- Cardiac Assessment Last Done: 07/01/25 20:51
ED- Neurological Assessment Last Done: 07/01/25 20:51
Discharge Date and Time
Discharge Date/Time: 07/02/25 01:35
[2025-07-01] MEDS: ATROPINE 0.1 MG/ML SYRINGE 1 MG IV (21:10)
[2025-07-01 21:22] LABS: Hematocrit 38.3 % (37.0-47.0); Hemoglobin 12.3 g/dL (12.0-16.0); Mean Corp Hgb Conc. 32.1 g/dL (33.0-37.0); Mean Corpuscular Volume 93.2 fL (81.0-99.0); Platelet Count 157 10^3/uL (130-400); Red Cell Dist. Width 14.7 % (11.5-14.5)
[2025-07-01 21:32] LABS: ALT (SGPT) 150 U/L (0-35); AST (SGOT) 290 U/L (14-36); Albumin 4.4 g/dl (3.5-5.0); Alkaline Phosphatase 114 U/L (38-126); Blood Urea Nitrogen 36 mg/dl (7-17); Calcium 8.8 mg/dl (8.4-10.2); Carbon Dioxide 19 mmol/L (22-30); Chloride 103 mmol/L (98-107); Estimated Creatinine Clearance 27 ml/min; Glucose 139 mg/dl (70-99); Potassium 6.8 mmol/L (3.5-5.1); Sodium 134 mmol/L (135-145); Total Protein 6.8 g/dl (6.3-8.2); eGFR 33.22
[2025-07-01 21:41] LABS: Troponin I 10.700 ng/ml
[2025-07-01 21:42] LABS: Glucose - Point of Care 112 mg/dl (70-99)
[2025-07-01] MEDS: CALCIUM GLUCONATE 1000 MG IV (21:49)
[2025-07-01] MEDS: DEXTROSE 50% SYRINGE 25 GRAMS IV (21:50)
[2025-07-01] MEDS: SODIUM BICARBONATE 50 MEQ IV (22:01)
[2025-07-01] MEDS: LOKELMA 10 GRAM PO (22:03)
[2025-07-01] MEDS: NOVOLIN R 5 UNITS IV (22:07)
[2025-07-01 22:25] LABS: Glucose - Point of Care 174 mg/dl (70-99)
--- NOTE | 2025-07-01 23:09 | HPS.HSE ---
Family Physician
-
Family Physician: Curry Dutton DO
Chief Complaint
-
Syncope
History of Present Illness
This is a 70-year-old female past medical history significant for CHF with preserved EF, permanent atrial fibrillation on anticoagulation, hypothyroid, pulmonary hypertension, chronic obstructive pulmonary disease otherwise unspecified, hypertension
presents to the emergency department with syncopal episode after undergoing ablation for atrial fibrillation on LVIDD.
According to the report the patient arrived for ablation in usual state of health. She underwent visual procedure with ablation and PVI. After procedure she had an episode of atrial fibrillation and she was also seen to have elevated filling
pressures during the procedure. Therefore she was given 600 mg of propefanone p.o. and metoprolol 50 mg. She was also given Lasix 40 mg IV. She was to continue on (propafenone?) 150 mg 3 times daily. She had a groin check with no complication
postprocedure.
Patient unable to provide history however family stated that she had a syncopal episode at home. Is unclear what happened but she fell from a couch and smacked the bridge of her nose.
According to family members when EMS arrived patient was bradycardic to the 30s and was given atropine. She has had multiple doses of atropine given in the ED for symptomatic bradycardia defined here as bradycardia less than 60 with associated
hypotension.
On arrival in the emergency department patient was continued on management for symptomatic bradycardia patient was also found to be hyperkalemic. She was given additional dose of atropine and giving Lasix for hyperkalemia. She was treated with
hyperkalemic hyperkalemic measures including insulin dextrose calcium gluconate and Lokelma. She has remained persistently hypotensive with blood pressures as low as 70s over 40s with heart rates mostly in the 50s.
Current vital signs with blood pressure 70/48 pulse 57 temp 96.3 and oxygen saturation of 92%. ECG sinus bradycardia at rate of 56 with 4 degree AV block no acute ST or T wave changes.
White count is stable at 5.5 with ambulatory 0.2 and blood count 157. Potassium was 6.8 bicarb 19, creatinine 1.6 up from a baseline of 1.2 BUN 36. Glucose was 139. She had a troponin of 10.7.
She had elevated LFTs with total bilirubin as high as 5.6 and AST of 290 ALT of 150.
CT of the head shows no evidence of acute intracranial abnormality. Focal area of CSF density in the left paramedian. Total region most likely represents encephalomalacia from old infarct. CT facial shows subtle fracture of the anterior nasal
bones. No other fracture identified.
Medical History
Past Medical History
Past Medical History: Reports Other
Additional Past Medical History:
1. Persistent atrial fibrillation, status post cardioversion x3 and pulmonary vein isolation 02/2023; pharmacological therapy with Metoprolol Succinate and oral anticoagulation with Eliquis.
2. Supraventricular tachycardia noted on previous Holter monitor.
3. Hypertension.
4. Hyperlipidemia.
5. Thoracic aorta atherosclerosis.
6. Pulmonary hypertension.
7. Mild-moderate mitral regurgitation.
8. Moderate tricuspid regurgitation.
9. Chronic venous insufficiency with varicosities.
10. COPD/emphysema with history of tobacco abuse.
11. Pulmonary nodule.
12. Obstructive sleep apnea, no current device.
13. Recent acute kidney injury, improving with reduction of Furosemide dosing.
14. Diverticulosis.
15. Probable irritable bowel syndrome with diarrhea.
16. Hypothyroidism.
17. Chronic anemia.
18. Gout.
19. Chronic post-nasal drip.
20. Bilateral cataracts, awaiting surgery.
21. Osteopenia.
22. Hypomagnesemia, on oral supplementation.
23. Mildly elevated transaminase.
24. Remote history of tobacco abuse.
25. Daily alcohol.
Past Surgical History: Reports Other
Additional Past Surgical History:
1. Pulmonary vein isolation.
2. Cardioversion x3.
3. Bilateral lower extremity venous varicosity stripping.
4. Appendectomy.
5. [place] tooth extraction.
6. Colonoscopy x3.
Social History
Tobacco: Former Smoker (She is a former less than 1 pack per day cigarette smoker who quit tobacco altogether in 2006. )
Alcohol: Daily (She drinks 1-2 glasses of wine most evenings. )
Living: Other (She lives with her son and her twin 4 year old granddaughters in a 4 story townhouse. )
Family History
Family History: Not pertinent
Allergies / Home Medications
Allergies reflects when Allergies were last updated in [facility].
Home Medications with original date entered in [facility]
Allergy/Medication List:
Allergies
Allergy/AdvReac Type Severity Reaction Status Date / Time
hydromorphone (From Dilaudid) Allergy hallucinati Verified 07/01/25 20:36
ons
Home Medications
apixaban 5 mg tablet (Eliquis) 5 mg PO BID Blood clot prevention/tx 11/20/22
ascorbic acid (vitamin C) 500 mg tablet (Vitamin C) 500 mg PO DAILY Supplement 11/20/22
atorvastatin 10 mg tablet 15 mg PO QPM High cholesterol 11/20/22
irbesartan 150 mg tablet 150 mg PO DAILY Blood pressure 11/20/22
magnesium oxide 400 mg PO BID Supplement 02/15/23
doxazosin 2 mg tablet 2 mg PO HS Blood Pressure 02/01/25
levothyroxine 50 mcg tablet (Synthroid) 50 mcg PO DAILY Thyroid 02/01/25
metoprolol succinate 50 mg tablet,extended release 24 hr 50 mg PO DAILY Blood Pressure 02/01/25
calcium carbonate 1,200 mg PO DAILY 06/16/25
furosemide 40 mg tablet 40 mg PO DAILY 06/16/25
multivitamin 1 tab PO DAILY 06/16/25
omega [id number]-fish oil 1,200 mg (144 mg-216 mg) capsule (Fish Oil) 1 cap PO BID 06/16/25
propafenone 150 mg tablet 150 mg PO Q8H #90 tabs 07/01/25
Review of Systems
-
Unable to obtain full review of systems at this time due to: Acuity
Physical Exam
Vital Signs
Vital Signs
Temp Pulse Resp BP Pulse Ox
96.3 F L 58 15 59/39 75
07/01/25 20:37 07/01/25 22:45 07/01/25 22:45 07/01/25 22:40 07/01/25 22:40
Physical Exam
General: Well Developed and Well Nourished
HEENT: NormoCephalic, Moist mucous membranes, Atraumatic and PERRLA
Respiratory: Clear
Cardiac: S1/S2, Regular Rhythm and Bradycardia; No Rub, Gallop or Peripheral Edema
GI: Soft, Non Tender and Non Distended
Musculoskeletal: No Clubbing, No Cyanosis, No Edema, Normal Gait & Station and Other (groin with dressing, clean dry intact. No swelling. Normal distal pulses. )
Skin: Warm and Dry
Neuro: Awake, Oriented (confused, agitated) and Nonfocal/grossly intact
Hematologic/Lymphatic: No Lymphadenopathy
Laboratory Results
-
07/01/25 21:04
07/01/25 21:04
Laboratory Results
Total Bilirubin 5.6 mg/dl (0.2-1.3) H 07/01/25 21:04
AST 290 U/L (14-36) H 07/01/25 21:04
ALT 150 U/L (0-35) H 07/01/25 21:04
Alkaline Phosphatase 114 U/L (38-126) 07/01/25 21:04
Troponin I 10.700 ng/ml H* 07/01/25 21:04
Data Reviewed
-
Diagnostic Radiology: Image Personally Visualized and interpreted
CT Scan: Report Reviewed by me
Medical Tests (Nuc Med, Echo, EKG etc): Image Personally Visualized and interpreted
Lab Data: Labs Reviewed by me
Old Records: Reviewed
Impression/Plan
-
IMPRESSION:
74-year-old with poorly controlled A-fib despite multiple previous cardioversions presents to the emergency department with syncope, hypotension and bradycardia postoperatively status post cardiac ablation and PVI earlier today. Notes from
procedure indicate that the patient had episode of atrial tachycardia at 120s to 150s immediately after the procedure and she was giving propranolol (600 mg?) and a home dose of metoprolol 50 mg. I suspect this is likely propafenone rather than
propranolol as she was supposed to continue on this medication at 150 mg 3 times daily. She apparently syncopized at home and was found to be bradycardic (sinus bradycardia). He had an Emergency Department she had been bradycardic and with ECG
showing sinus bradycardia in the 50s and 1/4 degree AV block and no acute ischemic changes. Troponin was elevated at 10. She did smack her head and was anticoagulated. However no evidence of acute intracranial bleed. She did suffer a minor
facial bone fracture of the nasal bridge. Continues to be persistently bradycardic and hypotensive in the ED. She cannot provide any history at this time but family indicates no signs of active infection prior to the procedure. It looks like
prior to proceeding when she was in chronic atrial fibrillation and was found to have elevated filling pressures. She received 500 cc bolus by EMS was given Lasix 40 mg IV in the ED. additional findings include a new YELENA with hyperkalemia to 6.8.
PLAN:
Syncope/Hypotension/Bradycardia -patient with syncopal likely secondary to cardiogenic shock. Possibly based on recent medications that was received after the patient procedure reports, rule out transient heart block. Troponin is elevated but
suspect this is secondary to the procedure and not related to an acute ischemic changes. She has a temp of 96 but shows no signs of acute infection. Suspect medication induced hypotension here.
-Admit to ICU
-Given 500 cc additional IV normal saline bolus (recent elevated filling pressures on outpatient study)
- Started on IV norepinephrine for now
-Blood cultures, urine cultures, x-rays were ordered
-Holding antibiotics pending x-ray findings
-Holding patient's antihypertensives including irbesartan and metoprolol furosemide for now.
-Echocardiogram in am
- Cardiology consultation
Elevated troponin -suspect nonischemic myocardial injury secondary to outpatient procedure.
-Trend troponins for now
-No evidence of intracranial bleed, if rising for will start anticoagulation with heparin
Hyperkalemia - > K 6.8. YELENA. On ARB. No obvious hematoma.
- s/p insulin/dextrose/lokelma/lasix
- repeat K in 4 hours
- will continue lokelma dose TID
- no additional fluids for now
- low K diet, hold arb
- u/s, may show any rp or intraperitoneal fluid which could mean blood in setting of elevated K, pending
Head trauma -no acute intracranial bleed, pt on eliquis
-Analgesics for pain
- monitor symptoms
Transaminitis -prior history of EtOH use but denies any recent use per family. Known to have elevated LFTs in the past but Jovita Garcia has never been this elevated. Not currently on Tylenol. ?shock liver?
- etoh level, tylenol level
- abd u/s to eval biliary system
- trend lfts
- GI consultation
YELENA - suspect secondary to hypotension
- check cpk
- holding arb for now
- hold lasix for now
- keep map > 65
- gentle hydration (will give one more 500 ml bolus over 1 hour and reevaluate)
DVT PPX - on apixaban, restart in am if stable, SCDs for now
Code status - Full Code
[2025-07-01] MEDS: LEVOPHED 250 IV (23:10)
[2025-07-01] MEDS: NSS 1000 IV (23:15)
[2025-07-01 23:22] LABS: Glucose - Point of Care 196 mg/dl (70-99)
[2025-07-01] MEDS: OFIRMEV 100 IV (23:37)
[2025-07-02] VITALS (49 sets, daily range): BP systolic 86–141; BP diastolic 39–116; BMI 22.4; BMI 21.8
[2025-07-02 00:34] LABS: Glucose - Point of Care 195 mg/dl (70-99)
[2025-07-02 00:46] LABS: Troponin I 9.800 ng/ml
[2025-07-02 00:59] LABS: Acetaminophen 24 ug/ml (10-30); Potassium 4.9 mmol/L (3.5-5.1)
[2025-07-02 01:40] LABS: Glucose - Point of Care 183 mg/dl (70-99)
[2025-07-02] MEDS: ZOFRAN 4 MG IV (01:57)
[2025-07-02 02:14] LABS: Hematocrit 35.3 % (37.0-47.0); Hemoglobin 11.6 g/dL (12.0-16.0); Mean Corp Hgb Conc. 32.9 g/dL (33.0-37.0); Mean Corpuscular Volume 92.4 fL (81.0-99.0); Platelet Count 152 10^3/uL (130-400); Red Cell Dist. Width 14.7 % (11.5-14.5)
[2025-07-02] MEDS: NSS 500 IV ×3 (02:22→10:40)
[2025-07-02 02:25] LABS: B.E. -7.6 mmol/L; HCO3 17.4 mmol/L (21-28); O2 Saturation % 96.1 % (94-98); PCO2 33 mmHg (32-35); PO2 76 mmHg (83-108)
[2025-07-02 02:29] LABS: INR 2.04; PT 23.5 Sec (11.4-14.6)
[2025-07-02 02:30] LABS: APTT 36.9 Sec (23.4-35.0)
[2025-07-02 02:47] LABS: ALT (SGPT) 322 U/L (0-35); AST (SGOT) 605 U/L (14-36); Albumin 3.9 g/dl (3.5-5.0); Alkaline Phosphatase 108 U/L (38-126); Blood Urea Nitrogen 40 mg/dl (7-17); Calcium 8.7 mg/dl (8.4-10.2); Carbon Dioxide 19 mmol/L (22-30); Chloride 105 mmol/L (98-107); Estimated Creatinine Clearance 24 ml/min; Glucose 200 mg/dl (70-99); Magnesium 1.6 mg/dl (1.6-2.3); Potassium 6.1 mmol/L (3.5-5.1); Sodium 136 mmol/L (135-145); Total Protein 6.3 g/dl (6.3-8.2); eGFR 28.84
[2025-07-02 02:58] LABS: Troponin I 9.990 ng/ml
--- NOTE | 2025-07-02 03:00 | W.PN.UPDATE ---
Update Note
Progress Note Update
0145- Patient less responsive, not answering questions, does not verbalize answers, eyes not tracking examiner, pupils 4 bilaterally reactive, extremities stiff, not withdrawing to painful/noxious stimuli. Rapid EEG, Ceribell applied, no seizure
activity noted. Labs obtained including ABG. Nasal cannula oxygen applied patient desaturated and sustained 80s%. Nausea episode x1. HR 50s and hypotensive on levophed gtt. Repeat Ctscan ordered as patient was continuing not to verbalize answers
and she was more responsive in the ER. Ctscan repeat negative for acute intracranial abnormalities. Probable acute encephalopathy due to cardiogenic shock, liver shock, worsening YELENA, and electrolytes derangement. Bicarb x2 amps and insulin IV
given for hyperkalemia, repeat increased back to 6.1.
Son at bedside given update, all questions answered.
[2025-07-02 03:01] LABS: Glucose - Point of Care 174 mg/dl (70-99)
[2025-07-02] MEDS: NOVOLIN R 5 UNITS IV (03:07)
[2025-07-02] MEDS: SODIUM BICARBONATE 50 MEQ IV ×2 (03:07)
[2025-07-02] MEDS: DEXTROSE 50% SYRINGE 25 GRAMS IV ×2 (03:07→22:08)
[2025-07-02] MEDS: MAGNESIUM SULFATE 102 GRAMS IV (03:17)
[2025-07-02 03:27] LABS: Ammonia < 9 umol/L (9-30)
--- NOTE | 2025-07-02 03:31 | PTCARENOTE ---
Received pt from ED to ICU [id number] ~0130. Transferred to bed. Upon arrival to ICU, ED RN noted pt mentation worsened since being in the ED. Pt. more difficult to arouse, only responsive to painful stimuli (inconsistently). Nonverbal. Nystagmus noted at
times. PERLA Soto at bedside. Ceribell applied per orders - 0% seizure burden. Pt. vomited ~0150. Repeat head CT ordered and completed. Upon return back to ICU, pt. inconsistently able to speak 1-2 words with garbled speech. Able to state name.
Quickly drifts back to sleep. SB on tele, HR 50s. On levophed at 4mcg to maintain MAP>65. No edema. Weak DPs. R fem with dsg from ablation yesterday. Soft, no active bleeding. Bridge of nose with abrasion and ecchymosis. Otherwise, skin intact. On
4L NC, lungs CTA. Spo2 93%. No void since arrival - bladder scan = 20ml. Discussed with PERLA Soto - monitor scans for now. Purewick in place. Repeat labs as ordered.
Son, Channing, at bedside briefly and updated.
--- NOTE | 2025-07-02 04:44 | PTCARENOTE ---
HR dipped to 28 momentarily then back up to 50. BP stable. LENS INSPECTOR at bedside. No changes in plan of care
[2025-07-02 04:53] LABS: Glucose - Point of Care 198 mg/dl (70-99)
[2025-07-02] MEDS: SYNTHROID PO (05:28)
[2025-07-02 05:59] LABS: Glucose - Point of Care 185 mg/dl (70-99)
[2025-07-02 07:11] LABS: Glucose - Point of Care 194 mg/dl (70-99)
--- NOTE | 2025-07-02 07:43 | W.RAPID.EEG ---
Rapid EEG
-
Procedure Date: 07/02/25
Results:
General Notes: No evidence status epilepticus
Diagnostic Recording Time: 05:50:00 (350 minutes)
Recording 1:
Start Time: Jul 02, 2025 01:47 AM End Time: Jul 02, 2025 07:37 AM
Recording Technique: This EEG was obtained using a 10 lead, 8 channel system positioned circumferentially without any parasagittal coverage (rapid EEG).Computer selected EEG is reviewed as well as background features and all clinically significant
events. Clarity algorithm utilized and implemented to provide analysis of underlying activity and seizure detection used to facilitate reading. ICD-10 Code CF15D48
Clinical History: MILAGROS ARMENDARIZ is a 74 year old Undifferentiated AMS patient undergoing EEG to screen for non-convulsive status epilepticus.
Disclaimer: EEG findings should be interpreted in the context of clinical history and other tests. A normal EEG does not rule out epilepsy or other conditions, and an abnormal EEG is not diagnostic on its own. Technical factors may affect
interpretation. Clinical context is required.
--- NOTE | 2025-07-02 07:54 | W.PN.UPDATE ---
Update Note
Progress Note Update
Please see full evaluation to follow from our team
I communicated with Dr. Scott in the emergency room last evening as well as the admitting team overnight with regards to fluid resuscitation and pressor support. It appears that she received 1 L of IV fluids in the emergency department and I
communicated the need to give her IV hydration. I think the mechanism of her bradycardia and hypotension is post pill in pocket dose propafenone bradycardia and hypotension. She also received pulsed field ablation yesterday and typically there is
some degree of hemolysis associated with this therapy. I suspect her renal insufficiency may be related to both the hypotension and background hemolysis. As such I communicated to bedside nursing and the critical care team this morning to give an
IV fluid bolus as she is not making any urine currently and repeat her basic metabolic panel this morning. I had personal communication with the critical care team who will evaluate the patient this morning. We will also ask nephrology to visit
with the patient given rising creatinine. Thankfully she appears oriented but restless and does not have any localizing neurologic signs. We will follow closely with you.
--- NOTE | 2025-07-02 07:55 | CON.CAR ---
Addendum entered and electronically signed by Cheo Vasquez MD 07/02/25 09:54:
Patient seen and examined
Agree with ASHLEIGH Hurtado's note and assessment
Agree with ASHLEIGH Hurtado's plan
Discussed plan of care with the emergency room team yesterday, internal medicine team overnight, critical care team this morning.
Exam:
Agitated but alert and oriented
Nonfocal neurologically
JVP flat
Cor regular no murmur
Lungs are clear to auscultation
Abdomen soft nontender positive bowel sounds
Extremities�skin with dry turgor
No edema
Labs ECGs details of procedure reviewed
PCP: Dr. Rocha
Oyster Culturist: Dr. Martine Mendoza
Captain Fire [employer]: Jaime Mendoza
Impression:
Presented 07/01/2025 with syncope, bradycardia, hypotension
Syncope resulting in nasal fractures
Symptomatic bradycardia, possibly related to propafenone pill in pocket dose given 07/01/2025
Hyperkalemia
YELENA
Anuric
Abnormal LFTs
Abnormal troponin
Paroxysmal atrial fibrillation
s/p PVI 03/18/2023
s/p CV 02/04/2025
s/p pulsed field PVI plus AF ablation sets X 3 after PVI (LA posterior wall, Inf/floor of the LA posterior wall, Ligament of Tayo) resulting in elimination of the targeted extra PV contributors to atrial fibrillation. Chronic Eliquis AC
Heart failure with preserved ejection fraction
Pulmonary HTN
COPD
HTN
HLD
Mild-mod MR by echo 11/2024
RAUL 03/12/2023: EF 55-60%, mild MR, moderate to severe TR, estimated PAP 31 mmHg
Echo 11/26/2023: EF 55-60%, moderate MR, moderate to severe TR, estimated PAP 52 mmHg,
Echo 12/01/2024: EF 54%, mild to mod MR, mod TR, estimated PAP 51 mmHg
Plan:
- Presented 07/01/2025 with syncopal episode and found to be bradycardic and hypotensive. Patient had pulsed field PVI ablation earlier that day and had atrial tachycardia following procedure and was provided 450 mg of oral propafenone +50 mg of
Toprol. She was then discharged home and later had syncopal episode.
- Suspect syncope is related to pill in pocket propafenone dose and metoprolol. All AV alice blocking agents currently on hold
-Given PVI ablation within 24 hours would start IV heparin with eventual transition to OAC. Pending renal function patient may need renal dosing of Eliquis
- Remains hypotensive currently on Levophed 3 mcg/kg/min. Patient received 1 L of normal saline overnight. Patient appears to be dry on examination. Would continue IV fluids with 500 cc bolus, may need additional volume pending response.
Hopefully Levophed can be weaned with volume resuscitation. Would avoid diuretics at this time
- Outpatient irbesartan and metoprolol currently on hold
- YELENA. Suspect to be volume depleted. Additionally given pulsed field ablation there may be a degree of hemolysis which is complicating the patient's renal function. Also having hyperkalemia despite Lokelma, IV insulin and dextrose. Nephrology
consult
- Follow renal function and electrolytes closely with labs every 4 hours
- Abnormal troponin suspected be nonischemic myocardial injury from PVI ablation on 07/01/2025. Troponin on admission, 10.7 and is now trending downward
- Check echocardiogram
- Abnormal LFTs. Abdominal ultrasound without any acute abnormalities. Suspect secondary to hypotension
- Altered mental status seems to be waxing and waning. Head CT x 2 unremarkable for stroke or bleed. EEG in place, initial report no evidence of seizures. Continue to follow
Plan was discussed with nursing, hair weaver, patient and nephrology
Original Note:
Consultation
Consultation Request
Date/Time Consultation Requested: 07/02/2025
Date/Time Consultation Performed: 07/02/2025
Requesting Provider: Dr. Torrez
Performing Provider: Leah Hurtado PA-C for Dr. Vasquez
Reason for Consultation: hypotension, bradycardia
Medical History
-
History of Present Illness:
Jessica is a 74 year old female with PMH of paroxysmal atrial fibrillation s/p PVI 2022 with repeat PVI 07/01/2025, pulmonary HTN, COPD, HTN, HLD, heart failure with preserved ejection fraction, and MR who presents to emergency department 07/01/2025
with syncope. Patient had PVI ablation day earlier that day. Postprocedure she was found to have atrial tachycardia with heart elevated heart rates 120-150's bpm and was provided propafenone 450 mg along with home Toprol of 50 mg with cheondoism
of sinus rhythm. There was concern of volume overload and she was provided 40 mg of IV Lasix. Later that afternoon patient later was deemed stable for discharge and went home. Later that evening patient had syncopal episode striking face
resulting in nasal bone fracture. EMS was called and on arrival patient was found to be bradycardic and hypotensive. She was provided several doses of atropine and fluid bolus. On presentation to emergency department she was noted to have YELENA
with creatinine of 1.6 and potassium of 6.8. LFTs elevated at AST 290, ALT 150. Troponin 10.7. EKG on admission showed sinus bradycardia with first-degree AV block, IVCD, QTc 548 ms. She was provided additional episodes of atropine and placed on
Levophed and one dose of IV Lasix. She was provided Lokelma, dextrose and insulin with improvement of potassium to 4.9 however upon repeat labs potassium 6.1. Patient was noted to have altered mental status and underwent head CT x 2 which showed
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 Given elevated LFTs patient underwent abdominal ultrasound which showed small volume of ascites within abdomen and thickened gallbladder with no stones or sludge.
At time of this evaluation patient lying in bed it appears to be somewhat restless but denies being in pain to me. She is oriented to person place and time. Heart rates in 50s to 60s on Levophed 3 mics per kilogram per minute. Per nursing patient
has been an uric and bladder scan did not show any significant urine retention.
PMH:
Paroxysmal atrial fibrillation
s/p PVI 03/18/2023
s/p CV 02/04/2025
s/p PVI plus AF ablation sets X 3 after PVI (LA posterior wall, Inf/floor of the LA posterior wall, Ligament of Tayo) resulting in elimination of the targeted extra PV contributors to atrial fibrillation.
Chronic Eliquis AC
Heart failure with preserved ejection fraction
Pulmonary HTN
COPD
HTN
HLD
Mild-mod MR by echo 11/2024
Past Medical History
Past Medical History: Other (In HPI)
Past Surgical History: Appendectomy, Cardiac (PVI ablation 02/2023, repeat PVI ablation 07/01/2025) and Orthopedic
Social History
Tobacco: Former Smoker
Alcohol: Occasional
Drug: None
Personal:
Family History
Family History: Reviewed & Not Pertinent
Allergies / Home Medications
Allergy/AdvReac Type Severity Reaction Status Date / Time
hydromorphone (From Dilaudid) Allergy hallucinati Verified 07/01/25 20:36
ons
�Medication �Instructions �Recorded �Confirmed �Type
apixaban 5 mg tablet (Eliquis) 5 mg PO BID Blood clot 11/20/22 07/01/25 History
prevention/tx
ascorbic acid (vitamin C) 500 mg 500 mg PO DAILY Supplement 11/20/22 07/01/25 History
tablet (Vitamin C)
atorvastatin 10 mg tablet 15 mg PO QPM High cholesterol 11/20/22 07/01/25 History
irbesartan 150 mg tablet 150 mg PO DAILY Blood pressure 11/20/22 07/01/25 History
magnesium oxide 400 mg PO BID Supplement 02/15/23 07/01/25 History
doxazosin 2 mg tablet 2 mg PO HS Blood Pressure 02/01/25 07/01/25 History
levothyroxine 50 mcg tablet 50 mcg PO DAILY Thyroid 02/01/25 07/01/25 History
(Synthroid)
metoprolol succinate 50 mg 50 mg PO DAILY Blood Pressure 02/01/25 07/01/25 History
tablet,extended release 24 hr
calcium carbonate 1,200 mg PO DAILY 06/16/25 07/01/25 History
furosemide 40 mg tablet 40 mg PO DAILY 06/16/25 07/01/25 History
multivitamin 1 tab PO DAILY 06/16/25 07/01/25 History
omega 1-vgj-iam-fish oil 1,200 mg 1 cap PO BID 06/16/25 07/01/25 History
(144 mg-216 mg) capsule (Fish Oil)
propafenone 150 mg tablet 150 mg PO Q8H #90 tabs 07/01/25 Rx
Review of Systems
-
History Source: Patient and Coordinating Provider
Physical Exam
Vital Signs
Temp Pulse Resp BP Pulse Ox
97.2 F 53 18 116/91 94
07/02/25 02:07 07/02/25 05:45 07/02/25 05:45 07/02/25 05:45 07/02/25 05:15
GEN: Lying in bed, restless but no acute distress, on EEG
HEENT: supple, anicteric, mmm
LUNGS: CTA, no wheezes/rales
CV: Reg, S1/S2, 1/6 syst murmur
ABD: soft, BS+, NT/ND
EXT: No edema, clubbing or cyanosis
NEURO: Able to follow simple commands, alert to person place and time
SKIN: No rash, warm, dry, pink
Lab Results
07/02/25 02:05
Troponin I 9.990 ng/ml H* 07/02/25 02:05
Impression / Plan
-
PCP: Dr. Rocha
Oyster Culturist: Dr. Martine Mendoza
Captain Fire [employer]: Jaime Mendoza
Impression:
Presented 07/01/2025 with syncope, bradycardia, hypotension
Syncope resulting in nasal fractures
Symptomatic bradycardia, possibly related to propafenone pill in pocket dose given 07/01/2025
Hyperkalemia
YELENA
Anuric
Abnormal LFTs
Abnormal troponin
Paroxysmal atrial fibrillation
s/p PVI 03/18/2023
s/p CV 02/04/2025
s/p pulsed field PVI plus AF ablation sets X 3 after PVI (LA posterior wall, Inf/floor of the LA posterior wall, Ligament of Tayo) resulting in elimination of the targeted extra PV contributors to atrial fibrillation.
Chronic Eliquis AC
Heart failure with preserved ejection fraction
Pulmonary HTN
COPD
HTN
HLD
Mild-mod MR by echo 11/2024
RAUL 03/12/2023: EF 55-60%, mild MR, moderate to severe TR, estimated PAP 31 mmHg
Echo 11/26/2023: EF 55-60%, moderate MR, moderate to severe TR, estimated PAP 52 mmHg,
Echo 12/01/2024: EF 54%, mild to mod MR, mod TR, estimated PAP 51 mmHg
Plan:
- Presented 07/01/2025 with syncopal episode and found to be bradycardic and hypotensive. Patient had pulsed field PVI ablation earlier that day and had atrial tachycardia following procedure and was provided 450 mg of oral propafenone +50 mg of
Toprol. She was then discharged home and later had syncopal episode.
- Suspect syncope is related to pill in pocket propafenone dose and metoprolol. All AV alice blocking agents currently on hold
-Given PVI ablation within 24 hours would start IV heparin with eventual transition to OAC. Pending renal function patient may need renal dosing of Eliquis
- Remains hypotensive currently on Levophed 3 mcg/kg/min. Patient received 1 L of normal saline overnight. Patient appears to be dry on examination. Would continue IV fluids with 500 cc bolus, may need additional volume pending response.
Hopefully Levophed can be weaned with volume resuscitation. Would avoid diuretics at this time
- Outpatient irbesartan and metoprolol currently on hold
- YELENA. Suspect to be volume depleted. Also having hyperkalemia despite Lokelma, IV insulin and dextrose. Nephrology consult
- Follow renal function and electrolytes closely with labs every 4 hours
- Abnormal troponin suspected be nonischemic myocardial injury from PVI ablation on 07/01/2025. Troponin on admission, 10.7 and is now trending downward
- Check echocardiogram
- Abnormal LFTs. Abdominal ultrasound without any acute abnormalities. Suspect secondary to hypotension
- Altered mental status seems to be waxing and waning. Head CT x 2 unremarkable for stroke or bleed. EEG in place, initial report no evidence of seizures. Continue to follow
Plan was discussed with nursing, hair weaver, patient and nephrology
HPI 07/02/2025:
Jessica is a 74 year old female with PMH of paroxysmal atrial fibrillation s/p PVI 2022 with repeat PVI 07/01/2025, pulmonary HTN, COPD, HTN, HLD, heart failure with preserved ejection fraction, and MR who presents to emergency department 07/01/2025
with syncope. Patient had PVI ablation day earlier that day. Postprocedure she was found to have atrial tachycardia with heart elevated heart rates 120-150's bpm and was provided propafenone 450 mg along with home Toprol of 50 mg with cheondoism
of sinus rhythm. There was concern of volume overload and she was provided 40 mg of IV Lasix. Later that afternoon patient later was deemed stable for discharge and went home. Later that evening patient had syncopal episode striking face
resulting in nasal bone fracture. EMS was called and on arrival patient was found to be bradycardic and hypotensive. She was provided several doses of atropine and fluid bolus. On presentation to emergency department she was noted to have YELENA
with creatinine of 1.6 and potassium of 6.8. LFTs elevated at AST 290, ALT 150. Troponin 10.7. EKG on admission showed sinus bradycardia with first-degree AV block, IVCD, QTc 548 ms. She was provided additional episodes of atropine and placed on
Levophed and one dose of IV Lasix. She was provided Lokelma, dextrose and insulin with improvement of potassium to 4.9 however upon repeat labs potassium 6.1. Patient was noted to have altered mental status and underwent head CT x 2 which showed
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 Given elevated LFTs patient underwent abdominal ultrasound which showed small volume of ascites within abdomen and thickened gallbladder with no stones or sludge.
At time of this evaluation patient lying in bed it appears to be somewhat restless but denies being in pain to me. She is oriented to person place and time. Heart rates in 50s to 60s on Levophed 3 mics per kilogram per minute. Per nursing patient
has been an uric and bladder scan did not show any significant urine retention.
Data Reviewed
-
EKG: Report Reviewed by me, Discussed with Physician, Discussed with Nurse and Discussed with Patient
Radiology: Report Reviewed by me, Discussed with Physician, Discussed with Nurse and Discussed with Patient
CT Scan: Report Reviewed by me, Discussed with Physician, Discussed with Nurse and Discussed with Patient
Labs: Labs Reviewed by me, Discussed with Physician, Discussed with Nurse and Discussed with Patient
Old Records: Reviewed
--- NOTE | 2025-07-02 08:10 | CON.INTV ---
Consultation
Consultation Request
Date/Time Consultation Requested: 07/02/25 01:42
Date/Time Consultation Performed: 07/02/25 08:11
Requesting Provider: Lore Calabrese MD
Performing Provider: Jb Kendrick (Resident); Bob Light
Reason for Consultation: Bradycardia, Hypotension
Medical History
-
Chief Complaint: Syncopal Episode
History of Present Illness:
Jessica Antony is a 74F w/ PMHx HFpEF, permanent A-fib, hypothyroidism, pulmonary hypertension, COPD, hypertension, chronic hypomagnesemia, chronic anemia,, chronic venous insufficiency, moderate tricuspid regurg, moderate mitral regurg,
hyperlipidemia. Patient underwent a repeat PVI ablation yesterday. While in PACU, patient was initially in sinus rhythm/sinus bradycardia underwent atrial tachycardia. She was given her home dose metoprolol 50 mg loading dose of propafenone 600 mg
as well as IV Lasix for elevated filling pressures. Upon discharge home, patient was advised to remain on her home dose Lasix at home dose metoprolol with the new medication propafenone 150 mg daily. However, since she was just given these
medications in the PACU, she did not take any of these medications at home.
While at home, patient was sitting on the couch watching TV. Patient started become dizzy, and had a syncopal episode. This was witnessed by the patient's son. Patient's other son endorses that his brother told him that she fell forward, and hit
her head on the floor, sustaining an abrasion to the bridge of the nose caused by her glasses. She was helped up, patient just appeared dizzy and woozy and that if she did lose consciousness it was only momentarily. Upon EMT arrival, patient was
bradycardic in the 30s to 40s and hypotensive. She was given 1 mg atropine with return of heart rate to the 50s.
ED COURSE
Upon arrival to the ED, patient was bradycardic and received multiple doses of atropine. She is also noted to be hyperkalemic and was given insulin/dextrose and Lokelma.
CBC was unremarkable. CMP showed hyperkalemia at 6.8, creatinine of 1.6 (baseline of 0.7 in January), transaminitis, bilirubin 5.6, lactic acid 4.2, troponin 10.7 (trended downward this morning)
This morning, patient endorses she is feeling okay. However she is restless, slurring her speech, and AO X2. Patient son is at bedside couple hours later, and endorses that that is not her baseline, and that she is generally independent with ADLs,
AAO X3, and does not slur speech.
Past Medical History
Past Medical History: Arrhythmias (Persistent atrial fibrillation, status post cardioversion x3 and pulmonary vein isolation 02/2023 and 07/01/2025), CHF (HFpEF), COPD, HTN, Hypercholesterolemia, Hypothyroidism and Other (Thoracic aortic
atherosclerosis, pulmonary hypertension, moderate MR, moderate TR, chronic venous insufficiency, GEETHA, diverticulosis, chronic anemia, gout, cataracts, osteopenia, hypomagnesemia, alcohol use)
Past Surgical History: Other (PVI X2, cardioversion X3, bilateral lower extremity venous varicosity stripping, appendectomy, wisdom tooth removal, colonoscopy X3)
Social History
Tobacco: Former Smoker (Distant and remote)
Alcohol: Occasional (Patient send notes use on most days of the week, but not daily.)
Living: With Family
Family History
Family History: Reviewed & Not Pertinent
Allergies / Home Medications
Allergies
Allergy/AdvReac Type Severity Reaction Status Date / Time
hydromorphone (From Dilaudid) Allergy hallucinati Verified 07/01/25 20:36
ons
Home Medications
�Medication �Instructions �Recorded �Confirmed �Last Taken �Type
apixaban 5 mg tablet (Eliquis) 5 mg PO BID Blood clot 11/20/22 07/01/25 06/30/25 18:00 History
prevention/tx
ascorbic acid (vitamin C) 500 mg 500 mg PO DAILY Supplement 11/20/22 07/01/25 06/30/25 08:00 History
tablet (Vitamin C)
atorvastatin 10 mg tablet 15 mg PO QPM High cholesterol 11/20/22 07/01/25 06/30/25 18:00 History
irbesartan 150 mg tablet 150 mg PO DAILY Blood pressure 11/20/22 07/01/25 06/30/25 08:00 History
magnesium oxide 400 mg PO BID Supplement 02/15/23 07/01/25 06/30/25 18:00 History
doxazosin 2 mg tablet 2 mg PO HS Blood Pressure 02/01/25 07/01/25 06/30/25 18:00 History
levothyroxine 50 mcg tablet 50 mcg PO DAILY Thyroid 02/01/25 07/01/25 06/30/25 06:00 History
(Synthroid)
metoprolol succinate 50 mg 50 mg PO DAILY Blood Pressure 02/01/25 07/01/25 06/30/25 08:00 History
tablet,extended release 24 hr
calcium carbonate 1,200 mg PO DAILY 06/16/25 07/01/25 06/30/25 08:00 History
furosemide 40 mg tablet 40 mg PO DAILY 06/16/25 07/01/25 06/30/25 08:00 History
multivitamin 1 tab PO DAILY 06/16/25 07/01/25 06/30/25 08:00 History
omega 2-vwa-ifu-fish oil 1,200 mg 1 cap PO BID 06/16/25 07/01/25 06/30/25 18:00 History
(144 mg-216 mg) capsule (Fish Oil)
propafenone 150 mg tablet 150 mg PO Q8H #90 tabs 07/01/25 Unknown Rx
Review of Systems
-
Unable to Obtain full review of systems at this time due to: Other (Altered mental status)
History Source: Patient and Family
Vitals / Labs / Diagnostic Testing
Vital Signs
Temp Pulse Resp BP Pulse Ox
97.2 F 53 18 116/91 94
07/02/25 02:07 07/02/25 05:45 07/02/25 05:45 07/02/25 05:45 07/02/25 05:15
Lab Data
07/02/25 02:05
Laboratory Results
07/02/25 07/02/25
02:05 02:06
PT 23.5 H
INR 2.04
APTT 36.9 H
pH 7.33 L
pCO2 33
pO2 76 L
HCO3 17.4 L
O2 Delivery Level
Diagnostic Testing:
Physical Exam
-
HEENT: Normocephalic, Anicteric and Other (Dry MM. Appears restless with constant repositioning.)
Cardiovascular: Irregular Rhythm and Other (No murmurs, rubs, gallops. No JVD. No lower extremity edema.)
Respiratory: Clear (Anteriorly, bilaterally.) and Non-Labored Respirations
GI: Soft, Non Distended and Non Tender
Neurology: Awake, Alert, Oriented (To person and place only.) and Other (No tremors. Appears restless with constant repositioning. Moving all fours.)
Skin: Warm
Assessment
-
Jessica Antony is a 74 year old female with an extensive past medical history as above, with significant PMHx of permanent atrial fibrillation s/p PVI ablation yesterday, HFpEF, hypothyroidism who presented after a syncopal event and was found to be
bradycardia requiring multiple doses of atropine and hypotensive initially requiring pressors and now maintaining MAP on fluids. Additionally, she was found to be hyperkalemic with a K of 6.8 and in acute kidney injury with a creatinine of 1.6. She
was admitted to the ED for BP maintenance and close nursing care.
ASSESSMENT
Bradycardia, currently maintained in the 50s
Hypotension, currently improved s/p 1.5L fluid bolus and maintenance
Hyperkalemia
Acute Kidney Injury (pre-renal vs. intrinsic)
Oliguria
Ischemic hepatitis
Nonischemic Myocardial Injury s/p PVI
Toxic Metaholic Encephalopathy
PLAN
Neuro
No seizure activity on Cerebell.
CT Head negative x 2.
RASS = 1. Goal 0-1.
Potential med side effect of propafenone.
Patient given low dose benzodiazepine given potential for EtOH withdrawal.
Continue to monitor and consider Neurology consult if there are no improvements.
Cardiovascular
Hold AV alice blocking agents
MAPs maintained currently after 1.5L fluid bolus. Start NS @ 100ml/hr.
Avoid diuretics.
Heparin drip s/p PVI as started by cardiology.
Troponin downtrending, likely in the setting of procedure. Will stop trending.
Agree with ECHO.
GI
NPO
Continue to trend LFTs, likely secondary to hypotension
Await GI recommendations
RENAL
CMP q4hr
Continue to trend Cr; differential includes both pre-renal and intrinsic causes
Continue to monitor K closely
Get UA, Urine Na, Urine Cr
Continue bladder scans; once enough urine, can straight cath if not urinated by then
Appreciate Nephrology reccs
Heme/Onc
Daily CBCs
Currently on Heparin
Data Reviewed
-
EKG: Tracing personally visualized and interpreted and Report reviewed by me
Radiology: Image personally visualized and interpreted and Report reviewed by me
Ultrasound: Report reviewed by me
Labs: Labs reviewed by me
Critical Care Time (in minutes): 45
--- NOTE | 2025-07-02 08:39 | PTCARENOTE ---
Addendum entered by Chadd Plata RN 07/02/25 09:09:
Ceribell 0% burden, reviewed w. Drywall Foreman bedside ok to remove will D/C order during rounds.
Original Note:
Assumed care of pt. approx 0700.
Lethargic and disoriented per night team.
Upon assessment presents AO/2, aphasic, dysarthric, visual agnosia/nystagmus present. aniteric sclera. Rhythmic nonpurposeful movements noted.
Normotensive will titrate off norepi as tolerated. Normothermic. NSR w.o ectopy.
-Cards rounded, wants to give volume repeat labs, discussed with cards SIMONE, attending, Drywall Foreman --> x1 500 0.9 bolus.
Ceribell remains on.
Nephro consulted for potential HD needs, no urine OP.
[2025-07-02 09:20] LABS: Troponin I 9.500 ng/ml
[2025-07-02] MEDS: TOPROL XL PO (09:22)
--- NOTE | 2025-07-02 09:24 | CON.GI ---
Addendum entered and electronically signed by Yadira Meyer MD 07/02/25 13:52:
I saw and examined the patient.
The [employer]'s note was reviewed and I agree with the note.
Impression
Hx of paroxysmal A-fib status post PVI ( 07/01 )/ syncope /bradycardia/cardiogenic shock
Elevated LFT-likely secondary to shock liver
YELENA
Lactic acidosis
Metabolic encephalopathy
Nasal fractures
plan
Hemodynamic stability as per medical team/cardiology
Continue to monitor LFT
Will add acute hepatitis panel (Less likely )
US Abdomen-normal liver. Small volume ascites. Thickened gallbladder with no stones or sludge. Will add Doppler study to check vasculature
Original Note:
Consultation
-
Date/Time Consultation Requested: 07/02/25 0142
Date/Time Consultation Performed: 07/02/25 0900
Requesting Provider: Dr. Torrez
Performing Provider: Dr. Meyer/PERLA Juan
Reason for Consultation: elevated LFT
Medical History
Chief Complaint / HPI
Chief Complaint: syncope
History of Present Illness:
74-year-old female with past medical history of paroxysmal A-fib, status post PVI 2022 with repeat PVI 07/01/2025, pulmonary hypertension, COPD, hypertension, hyperlipidemia, HFpEF, MR, osteopenia, obstructive sleep apnea, former smoker,
hypothyroidism who presents to the emergency room with syncope after having PVI ablation earlier that day. History obtained from the chart and nursing as patient unable to give history. After the procedure she had episodes of A-fib and elevated
filling pressures. She was given propafenone 450 mg along with home Toprol of 50 mg with orthodoxy of sinus rhythm. There was concern of volume overload and she was provided 40 mg of IV Lasix. The patient had an episode of syncope at home. She
fell from the couch and hit the bridge of her nose. EMS was called. She was given multiple doses of atropine for symptomatic bradycardia. She also required doses of atropine in the ER. Also found to be hyperkalemic and was given Lasix for this.
Her hyperkalemia was treated with Lasix, calcium gluconate, insulin dextrose and Lokelma. The patient had hypotension with 70s over 40s and was placed on Levophed. She was noted to be in first-degree AV block. She had a troponin of 10. She had
altered mental status and had CT of the head x 2. We are asked to evaluate for elevated LFTs. In patient's record it states that she drinks 2 glasses of white wine a night. RN discussed with patient's son who states that she does not necessarily
drink every night. I was able to review her prior LFTs on occasion she will have mild elevation of AST and ALT in the 40 range. LFTs January 2025 demonstrate completely normal LFTs with total bilirubin 0.8, AST at 36, ALT 35 and alk phos of 104. LFTs
06/21/2025 showed total bilirubin 1.9, AST 40, ALT 32, alk phos 112. On presentation total bilirubin 5.6, AST 290, ALT 150 alk phos of 114, CK1 74, troponin 10.7. Repeat LFTs currently total bilirubin 5.5, direct bilirubin 2.2, AST 605, ALT 322,
alk phos 108, ammonia less than 9, troponin 9.99 with repeat troponin 9.5. She did have a lactic acid of 4.2 now decreasing to 3.0. WBC 10.1, hemoglobin 11.6, hematocrit 35.3, platelets 152, PT 23.5, INR 2.04, sodium 136, potassium 6.1 (down from
6.8), CO2 19, BUN 40 (increased from 36), creatinine 1.8 (up from 1.6), glucose 200. Alcohol not detected. Acetaminophen level 24. Ultrasound of the abdomen shows small volume ascites within the abdomen. Contrasted/thickened gallbladder with no
stones or sludge appreciated. The wall thickening is nonspecific possibly active in nature and related to patient's ascites versus underdistention. Liver 15.8 cm. Homogeneous echo texture with no discrete lesions. Bile duct measures 2 mm. No
intrahepatic ductal dilatation. Will ask radiology to comment on Doppler images. Patient currently lying in bed awake, restless however moving all appendages. She is able to state her name, not sure on year states it is 2020. Also states that
she is walking the streets in [place]. She will answer some questions appropriately. She denies any nausea, vomiting or abdominal pain. She does state that 'my mouth is dry'.
Past Medical History
Past Medical History: Other (Paroxysmal A-fib, pulmonary hypertension, COPD, hypertension, hyperlipidemia, HFpEF, MR, osteopenia, obstructive sleep apnea, hypothyroidism)
Past Surgical History: Other (Appendectomy, bilateral venous stripping of lower extremities, left knee effusion aspiration, cardiac ablation, wisdom tooth extraction,)
Social History
Tobacco: Former Smoker
Alcohol: Occasional (Per chart it states 2 glasses of wine a night, per son may go a day or so without drinking.)
Drug: None
Personal:
Living: With Family
Employment: Retired
Family History
Family History: Other (Unable to obtain)
Allergies / Home Medications
Allergy/AdvReac Type Severity Reaction Status Date / Time
hydromorphone (From Dilaudid) Allergy hallucinati Verified 07/01/25 20:36
ons
�Medication �Instructions �Recorded
apixaban 5 mg tablet (Eliquis) 5 mg PO BID Blood clot 11/20/22
prevention/tx
ascorbic acid (vitamin C) 500 mg 500 mg PO DAILY Supplement 11/20/22
tablet (Vitamin C)
atorvastatin 10 mg tablet 15 mg PO QPM High cholesterol 11/20/22
irbesartan 150 mg tablet 150 mg PO DAILY Blood pressure 11/20/22
magnesium oxide 400 mg PO BID Supplement 02/15/23
doxazosin 2 mg tablet 2 mg PO HS Blood Pressure 02/01/25
levothyroxine 50 mcg tablet 50 mcg PO DAILY Thyroid 02/01/25
(Synthroid)
metoprolol succinate 50 mg 50 mg PO DAILY Blood Pressure 02/01/25
tablet,extended release 24 hr
calcium carbonate 1,200 mg PO DAILY 06/16/25
furosemide 40 mg tablet 40 mg PO DAILY 06/16/25
multivitamin 1 tab PO DAILY 06/16/25
omega 5-uhd-ngj-fish oil 1,200 mg 1 cap PO BID 06/16/25
(144 mg-216 mg) capsule (Fish Oil)
propafenone 150 mg tablet 150 mg PO Q8H #90 tabs 07/01/25
Review of Systems
-
Unable to obtain full review of systems at this time due to: Other (Patient somewhat confused)
All other systems: A 12 pt ROS was Negative except as stated above in HPI
Vital Signs
Temp Pulse Resp BP Pulse Ox
97.9 F 53 18 116/91 94
07/02/25 08:00 07/02/25 05:45 07/02/25 05:45 07/02/25 05:45 07/02/25 05:15
Physical Exam
Exam
General: Other (Patient restless, moving all appendages does not appear to be in any distress)
HEENT: Anicteric
Respiratory: Clear (Anterior)
Cardiac: Regular Rhythm
GI: Soft, Non Tender, Non Distended and Normal Bowel Sounds
Skin: Warm and Dry
Neuro: Awake, Alert and Oriented (To person, thinks that she is in [facility] states year is 2019)
Psych: Calm and Confused
Results
WBC 10.1 10^3/uL (4.8-10.8) 07/02/25 02:05
Hgb 11.6 g/dL (12.0-16.0) L 07/02/25 02:05
Hct 35.3 % (37.0-47.0) L 07/02/25 02:05
MCV 92.4 fL (81.0-99.0) 07/02/25 02:05
Plt Count 152 10^3/uL (130-400) 07/02/25 02:05
PT 23.5 Sec (11.4-14.6) H 07/02/25 02:05
INR 2.04 07/02/25 02:05
APTT 36.9 Sec (23.4-35.0) H 07/02/25 02:05
Sodium 136 mmol/L (135-145) 07/02/25 02:05
Potassium Cancelled 07/02/25 05:23
Chloride 105 mmol/L (98-107) 07/02/25 02:05
Carbon Dioxide 19 mmol/L (22-30) L 07/02/25 02:05
BUN 40 mg/dl (7-17) H 07/02/25 02:05
Creatinine 1.8 mg/dL (0.6-1.0) H 07/02/25 02:05
Calcium 8.7 mg/dl (8.4-10.2) 07/02/25 02:05
Total Bilirubin 5.5 mg/dl (0.2-1.3) H 07/02/25 02:05
AST 605 U/L (14-36) H* 07/02/25 02:05
ALT 322 U/L (0-35) H 07/02/25 02:05
Alkaline Phosphatase 108 U/L (38-126) 07/02/25 02:05
Diagnostic Image Results:
Ultrasound abdomen:
Small volume of ascites within the abdomen.
Contrasted/thickened gallbladder with no stones or sludge appreciated. The wall thickening is nonspecific, possibly reactive in nature and related to patient's ascites versus underdistention.
Chest x-ray:
No radiographic evidence of acute cardiopulmonary abnormality.
Cardiomegaly
Head CT #2:
No acute intracranial abnormality.
Facial bone CT:
Subtle fracture of the anterior nasal bones.
Head CT #1
No evidence of acute intracranial abnormality.
Focal area of CSF density in the left paramedian parietal region, as described. This most likely represents a focal area of encephalomalacia from old infarction. Main differential consideration of arachnoid cyst.
Prior GI Procedures:
EGD: Unsure
Colonoscopy: States that she had this 'years ago'. Per PCPs records this was done at [facility].
Assessment / Plan
-
74-year-old female with past medical history of paroxysmal A-fib, status post PVI 2022 with repeat PVI 07/01/2025, pulmonary hypertension, COPD, hypertension, hyperlipidemia, HFpEF, MR, osteopenia, obstructive sleep apnea, former smoker,
hypothyroidism who presents to the emergency room with syncope after having PVI ablation earlier that day. History obtained from the chart and nursing as patient unable to give history. After the procedure she had episodes of A-fib and elevated
filling pressures. She was given propafenone 450 mg along with home Toprol of 50 mg with orthodoxy of sinus rhythm. There was concern of volume overload and she was provided 40 mg of IV Lasix. The patient had an episode of syncope at home. She
fell from the couch and hit the bridge of her nose. EMS was called. She was given multiple doses of atropine for symptomatic bradycardia. She also required doses of atropine in the ER. Also found to be hyperkalemic and was given Lasix for this.
Her hyperkalemia was treated with Lasix, calcium gluconate, insulin dextrose and Lokelma. The patient had hypotension with 70s over 40s and was placed on Levophed. She was noted to be in first-degree AV block. She had a troponin of 10. She had
altered mental status and had CT of the head x 2. We are asked to evaluate for elevated LFTs.
Prior LFTs on occasion she will have mild elevation of AST and ALT in the 40 range. Prior review of imaging studies of the liver always showed the liver to be normal. Patient may drink a couple glasses of wine a night. RN spoke to son who states
that she may go couple days without drinking alcohol. LFTs January 2025 demonstrate completely normal LFTs with total bilirubin 0.8, AST at 36, ALT 35 and alk phos of 104. LFTs 06/21/2025 showed total bilirubin 1.9, AST 40, ALT 32, alk phos 112. On
presentation total bilirubin 5.6, AST 290, ALT 150 alk phos of 114, CK1 74, troponin 10.7. Repeat LFTs currently total bilirubin 5.5, direct bilirubin 2.2, AST 605, ALT 322, alk phos 108, ammonia less than 9, troponin 9.99 with repeat troponin 9.5.
She did have a lactic acid of 4.2 now decreasing to 3.0. WBC 10.1, hemoglobin 11.6, hematocrit 35.3, platelets 152, PT 23.5, INR 2.04, sodium 136, potassium 6.1 (down from 6.8), CO2 19, BUN 40 (increased from 36), creatinine 1.8 (up from 1.6),
glucose 200. Alcohol not detected. Acetaminophen level 24. Ultrasound of the abdomen shows small volume ascites within the abdomen. Contrasted/thickened gallbladder with no stones or sludge appreciated. The wall thickening is nonspecific
possibly active in nature and related to patient's ascites versus underdistention. Liver 15.8 cm. Homogeneous echo texture with no discrete lesions. Bile duct measures 2 mm. No intrahepatic ductal dilatation. Will ask radiology to comment on
Doppler images.
Impression:
Syncope
Bradycardia
Hypotension requiring pressor support
YELENA
Elevated troponin
Hyperkalemia
Nasal fracture
Elevated LFTs
Plan:
-- Likely secondary to shock liver
-- Ultrasound performed, will ask radiology to comment on Dopplers
-- Patient does have history of drinking couple glasses of wine at night. Per son none recently.
-- Continue to trend LFTs
--Further recommendations to be forthcoming
-
-
Thank you for consultation and allowing me to participate in the patient's care. Please call the buttonhole maker GI physician during the after hours with any questions or concerns.
[2025-07-02 09:51] LABS: Glucose - Point of Care 150 mg/dl (70-99)
[2025-07-02 10:19] LABS: Blood Urea Nitrogen 45 mg/dl (7-17); Calcium 8.5 mg/dl (8.4-10.2); Carbon Dioxide 23 mmol/L (22-30); Chloride 105 mmol/L (98-107); Estimated Creatinine Clearance 21 ml/min; Glucose 185 mg/dl (70-99); Potassium 5.2 mmol/L (3.5-5.1); Sodium 138 mmol/L (135-145); eGFR 23.97
[2025-07-02 10:24] LABS: Hematocrit 34.4 % (37.0-47.0); Hemoglobin 11.2 g/dL (12.0-16.0); Mean Corp Hgb Conc. 32.6 g/dL (33.0-37.0); Mean Corpuscular Volume 93.7 fL (81.0-99.0); Platelet Count 144 10^3/uL (130-400); Red Cell Dist. Width 14.9 % (11.5-14.5)
--- NOTE | 2025-07-02 10:28 | W.CON.NEPH ---
Addendum entered and electronically signed by Varghese Ji MD 07/02/25 14:11:
I agree with the resident's note with the following addendum
74-year-old female with persistent atrial fibrillation with prior ablation on anticoagulation with Eliquis and rate control with beta-jim therapy. She has heart failure with preserved ejection fraction compensated with Lasix at home. She also
has hypertension on a multidrug regimen which is typically controlled. She underwent pulmonary vein isolation yesterday and was discharged home. She then had a syncopal episode and hit the couch causing trauma to her face and bridge of nose. EMS
arrived and found her bradycardic in the 30s and gave her atropine. In the emergency room she received more atropine as she was still bradycardic. She was also noted to be significantly hypotensive. She was placed on pressors. Her potassium was
noted to be elevated 6.8 which was treated medically at that time. Troponin was elevated though consistent with her recent ablation. Her creatinine, typically around 1.0 has now risen up to 2.1 with progressive rise roughly acute kidney injury.
We are asked to assist in management of this. Lactic acid was also noted to be elevated though starting to improve. She is currently critically ill in the ICU
Patient is in no distress. Speech is rambling though she answers occasional questions appropriately. Pupils are equal round and reactive to light, extraocular movements are intact, sclera were anicteric. Hearing was normal, ears and nose are
intact. Oropharynx was clear. Neck was supple with trachea midline and no thyromegaly. Heart was regular rate and rhythm without rubs. She was bradycardic.. Lower extremities without edema. Lungs were clear to auscultation bilaterally and with
normal excursion. Abdomen was soft, nontender, with normal active bowel sounds, and no hepatosplenomegaly. Skin was without rash and with normal turgor.
Laboratory values as well as all laboratory values were reviewed
Chest x-ray on 07/01/2025 by my reading shows no active disease
CT of the head on 07/02/2025 shows no acute disease
EKG on 07/01/2025 by me shows sinus bradycardia
Echocardiogram from 12/01/2024 shows ejection fraction 54%, moderate MR and TR
IMPRESSION:
Bradycardic shock
lactic acidosis
Worsening YELENA with anuria
Hyperkalemia
Acute encephalopathy
Syncope with facial trauma
Status post PVI for afib
Shock liver
PLAN:
Follow BMP
Follow LFTs
IV fluids isotonic
Trend lactate
Check urine studies when available
Follow postvoid residual
Critical care time spent 31 minutes
Original Note:
Consultation
-
Date/Time Consultation Requested: 07/02/2025, 09:07
Date/Time Consultation Performed: 07/02/2025, 10:00
Requesting Provider: Leah Hurtado PA-C
Performing Provider: Varghese Ji MD
Reason for Consultation: Yelena, hyperkalemia, Anuria
Medical History
-
Chief Complaint: Syncope, fall, PVI
History of Present Illness:
74 year old female with history of persistent Afib s/p PVI 07/01/2025, COPD, prior YELENA improved with lasix dose reduction, HTN, HFpEF, SVT, pulmonary HTN, chronic anemia, hyperlipidemia, prior YELENA history improved with reduced lasix dosing, who
presents after a syncopal episode at home, following ondergoing PVI for persisitent afib earlier in the day.
Apparently she had episode of afib after her procedure and was treated with propafenone and metoprolol. Also given lasix. At home, she had a syncopal episode with fall and trauma to her face. EMS were called and she was noted by them to be
bradycardic to 30s, given Atropine. In the ED, she was given more atropine for symptomatic bradycardia. She was hypotensive with SBP to the 70s, bicarb 19, troponin 10.
Nephrology has been consulted to assess/manage YELENA
Past Medical History
Past Medical History: Arrhythmias (persistent afib, SVT), COPD, HTN, Hypercholesterolemia, Hypothyroidism and Other (pulmonary nodule, diverticulosis, pulmonary hypertension, chronic anemia, gout, bilateral cataracts, daily alcohol use, HFpEF)
Past Surgical History: Appendectomy, Cardiac (PVI) and Other (bilateral LE venous stripping, wisdom tooth extraction)
Social History
Tobacco: Former Smoker
Alcohol: Daily (1-2 glasses of wine on most days)
Drug: None
Family History
Family History: Not Pertinent
Allergies / Home Medications
Allergy/AdvReac Type Severity Reaction Status Date / Time
hydromorphone (From Dilaudid) Allergy hallucinati Verified 07/01/25 20:36
ons
�Medication �Instructions �Recorded �Confirmed �Type
apixaban 5 mg tablet (Eliquis) 5 mg PO BID Blood clot 11/20/22 07/01/25 History
prevention/tx
ascorbic acid (vitamin C) 500 mg 500 mg PO DAILY Supplement 11/20/22 07/01/25 History
tablet (Vitamin C)
atorvastatin 10 mg tablet 15 mg PO QPM High cholesterol 11/20/22 07/01/25 History
irbesartan 150 mg tablet 150 mg PO DAILY Blood pressure 11/20/22 07/01/25 History
magnesium oxide 400 mg PO BID Supplement 02/15/23 07/01/25 History
doxazosin 2 mg tablet 2 mg PO HS Blood Pressure 02/01/25 07/01/25 History
levothyroxine 50 mcg tablet 50 mcg PO DAILY Thyroid 02/01/25 07/01/25 History
(Synthroid)
metoprolol succinate 50 mg 50 mg PO DAILY Blood Pressure 02/01/25 07/01/25 History
tablet,extended release 24 hr
calcium carbonate 1,200 mg PO DAILY 06/16/25 07/01/25 History
furosemide 40 mg tablet 40 mg PO DAILY 06/16/25 07/01/25 History
multivitamin 1 tab PO DAILY 06/16/25 07/01/25 History
omega 6-pfz-nlh-fish oil 1,200 mg 1 cap PO BID 06/16/25 07/01/25 History
(144 mg-216 mg) capsule (Fish Oil)
propafenone 150 mg tablet 150 mg PO Q8H #90 tabs 07/01/25 Rx
Review of Systems
-
Unable to obtain full review of systems at this time due to: Acuity (encephalopathy)
History Source: Patient
Respiratory: Other (no dyspnea)
Cardiac: Other (no chest pain, palpitation, dizziness)
Abdomen/GI: Other (no nausea/vomiting)
Physical Exam
Vital Signs
Vital Signs
Temp Pulse Resp BP Pulse Ox
97.9 F 53 18 116/91 94
07/02/25 08:00 07/02/25 05:45 07/02/25 05:45 07/02/25 05:45 07/02/25 05:15
Lab Results
WBC 8.1 10^3/uL (4.8-10.8) 07/02/25 10:15
RBC 3.67 10^6/uL (4.20-5.40) L 07/02/25 10:15
Hgb 11.2 g/dL (12.0-16.0) L 07/02/25 10:15
Hct 34.4 % (37.0-47.0) L 07/02/25 10:15
Plt Count 144 10^3/uL (130-400) 07/02/25 10:15
eGFR 23.97 07/02/25 08:26
Phosphorus 6.4 mg/dl (2.5-4.5) H 07/02/25 02:05
Albumin 3.9 g/dl (3.5-5.0) 07/02/25 02:05
Physical Exam
General: Awake, Alert and AOx3
HEENT: Other (mild facial bruising, dry mucous membranes)
Respiratory: Clear and Nonlabored Respirations; Negative Wheezes, Crackels or Rhonchi
Cardiac: S1/S2, No Edema and Other (bradycardic, regular rhythm); Negative Murmur
Abdomen: Soft, Nontender, Nondistended and Normal Bowel Sounds
Musculoskeletal: No Cyanosis and No Edema
Neuro: Other (AOx3, can answer questions and follow commands but appears confused )
Assessment/Plan
-
IMPRESSION:
Cardiogenic shock
lactic acidosis
Worsening YELENA with anuria
lactic acidosis
Hyperkalemia
Acute encephalopathy
Syncope
Fall with facial trauma
Status post PVI for afib
PLAN:
- YELENA likely from hypoperfusion secondary to shock
- Appears fluid depleted with dry mucous membranes
- Avoid hypotension
- Start IVF, NS
- Trend lactate
- Consider griffiths if yelena worsens with anuria
[2025-07-02] MEDS: VALIUM INJECTION 2.5 MG IV (10:40)
[2025-07-02] MEDS: HEPARIN 25000 UNITS/250 ML IV (10:41)
[2025-07-02] MEDS: NSS 1000 IV ×2 (11:04→20:11)
--- NOTE | 2025-07-02 13:12 | W.PN.HOSP.TC ---
Today's Communication/Plan
-
IV fluids wean pressors as able with MAP goal >65
Avoid antihypertensives, AVN blockade, diuretics
Monitor mental status
Trend BMP, UOP, and LFTs
Assessment / Plan
Assessment / Plan
#Circulatory shock
#Bradycardia
#Shock liver
-Suspected prolonged vasovagal state from cardiac ablation and propafenone effect
-Was started on Levophed for hemodynamic support, BP improved though HR still in 50s
-Blood cultures and urine cultures obtained upon arrival; holding off on antibiotics for now
-Holding home antihypertensives and diuretics including irbesartan, metoprolol, Lasix
-Started on IV fluids as well; anticipate improvement once propafenone is washed out
-Continue vasopressors and wean for MAP goal >65
-Hold home antihypertensives, diuretics, propafenone
-Continue on telemetry, follow cultures for completeness
#Oliguric prerenal YELENA
#Hyperkalemia
-Likely due to hemodynamic instability with hypotension and circulatory shock as above
-Upon arrival creatinine was near 1.2 though is up trended to 1.8 as of most recent lab draw
-Home irbesartan was held upon arrival; nephrology consulted and recommended IV fluids
-Continue maintenance IV fluids and pressors as above, MAP goal >65
-Avoid nephrotoxic agents, hold diuretic and ARB
-Trend BMP and urine output closely
#Toxic metabolic encephalopathy
-Suspect this is associated with propafenone, YELENA
-Undergoing washout of propafenone with IV fluids as above
-Anticipate this will improve with improvement of the above issues
-Monitor MSE, avoid sedating agents
-Delirium precautions
#Elevated troponin
-Nonischemic myocardial injury secondary to ablation outpatient
-No chest pain, dynamic ECG change or other sign of ACS
-Troponin trend not consistent with ACS
#Paroxysmal AF s/p PVI
-Home medications include metoprolol succinate and Eliquis
-Holding metoprolol as above due to circulatory shock
-Continue on telemetry
#COPD
#GEETHA not on CPAP
#Pulmonary hypertension
-No O2 requirements at baseline, does not wear CPAP nightly
-Likely group 3 pulmonary hypertension from intrinsic lung disease
-No signs of COPD flare at this time; not currently on maintenance therapy
-Monitor clinically, consider LABA/LAMA at discharge for maintenance therapy
#Hypothyroidism
-Unclear etiology, possibly Blanco's
-No signs of abnormal thyroid function at this time
-Continue home levothyroxine dose
#HFpEF
-Per documentation, home meds include Lasix 40 mg
-Home meds include ARB; no SGLT2i or MRA
-Appears dry at this time, on maintenance IVF as above
-Trend I's and O's + weights
#Dyslipidemia
-No known ASCVD history
-Home regimen includes moderate intensity atorvastatin
Diet: NPO for now
Thromboprophylaxis: Heparin drip in place of home Eliquis
CODE STATUS: Full code
Disposition: PT consulted
Anticipated Discharge: > 48 hours
Subjective/Interval History
-
Date of Service: July 02, 2025
Seen and examined at the bedside. No acute events reported overnight. AFVSS this morning
Renal function worsening with creatinine up to 1.8, minimal urine output. LFTs uptrending
Patient with altered mentation, ROS limited
Objective Data
-
Labs:
Laboratory Results
07/02/25 07/02/25 07/02/25
02:05 02:06 05:23
WBC 10.1
Hgb 11.6 L
Hct 35.3 L
Plt Count 152
PT 23.5 H
INR 2.04
APTT 36.9 H
HCO3 17.4 L
Sodium 136
Potassium 6.1 H* Cancelled
Chloride 105
Carbon Dioxide 19 L
BUN 40 H
Creatinine 1.8 H
Glucose 200 H
Calcium 8.7
Total Bilirubin 5.5 H
AST 605 H*
ALT 322 H
Alkaline Phosphatase 108
07/02/25 07/02/25 07/02/25
08:26 10:15 10:28
WBC 8.1
Hgb 11.2 L
Hct 34.4 L
Plt Count 144
PT
INR
APTT Cancelled Cancelled
HCO3
Sodium 138
Potassium 5.2 H
Chloride 105
Carbon Dioxide 23
BUN 45 H
Creatinine 2.1 H
Glucose 185 H
Calcium 8.5
Total Bilirubin
AST
ALT
Alkaline Phosphatase
07/02/25 07/02/25 07/02/25
13:02 16:00 20:00
WBC
Hgb
Hct
Plt Count
PT
INR
APTT
HCO3
Sodium Pending Pending Pending
Potassium Pending Pending Pending
Chloride Pending Pending Pending
Carbon Dioxide Pending Pending Pending
BUN Pending Pending Pending
Creatinine Pending Pending Pending
Glucose Pending Pending Pending
Calcium Pending Pending Pending
Total Bilirubin
AST
ALT
Alkaline Phosphatase
Vital Signs:
Vital Signs
Temp Pulse Resp BP Pulse Ox
97.3 F 49 14 100/42 93
07/02/25 11:57 07/02/25 11:00 07/02/25 11:00 07/02/25 11:00 07/02/25 11:11
I&O
07/01/25 07/02/25 07/03/25
06:59 06:59 06:59
Intake Total 663.9 / 675.2 1129.6 / 1129.6
Output Total 0 / 0
Balance 663.9 / 675.2 1129.6 / 1129.6
Review of Systems
-
Unable to obtain full review of systems at this time due to: Acuity
Physical Exam
-
General: Well Developed, Appears Chronically Ill and Other (Thin and frail)
HEENT: Normocephalic, Atraumatic and Other (Dry oral mucosa)
Respiratory: Clear to Auscultation and Non Labored Respirations
Cardiac: Regular Rhythm and S1/S2; Negative Murmur, Rub or Gallop
GI: Soft, Nontender, Nondistended and Normal Bowel Sounds
Musculoskeletal: No Clubbing, No Cyanosis and No Edema
Skin: Warm and Dry; Negative Rash
Neuro: Awake, Alert, Nonfocal/Grossly Intact and Central Nerve's Intact; Negative Oriented
Psych: Calm
Data Reviewed
-
Labs: Labs Reviewed by me, Discussed with Physician (Tracer Lathe Set Up Operator) and Discussed with Patient
--- NOTE | 2025-07-02 13:15 | PTCARENOTE ---
Heparin gtt started per cards.
Ceribell D/C during rounds no evidence of seizure activity.
x2 500ml Crystalloid bolus given --> start maint 0.9.
Multiple bladder scans completed, <60ml of urine at this time remains anuric--> offset second press operator notified. Trending BMP.
family updated bedside no further changes in assessment.
--- NOTE | 2025-07-02 15:54 | PTCARENOTE ---
Addendum entered by Chadd Plata RN 07/02/25 15:54:
Lab called due to 2 hour delay on BMP sent 1302 still no results pending. Lab confirmed specimen and will submit results when available.
Original Note:
Remains anuric, recent bladder scan for 80--> Security Assistant notified no new orders.
Cont. to trend BMP.
[2025-07-02 15:55] LABS: Blood Urea Nitrogen 49 mg/dl (7-17); Calcium 8.5 mg/dl (8.4-10.2); Carbon Dioxide 18 mmol/L (22-30); Chloride 109 mmol/L (98-107); Estimated Creatinine Clearance 19 ml/min; Glucose 147 mg/dl (70-99); Potassium 4.8 mmol/L (3.5-5.1); Sodium 138 mmol/L (135-145); eGFR 21.49
--- NOTE | 2025-07-02 16:22 | W.PN.UPDATE ---
Update Note
Progress Note Update
Clinically improved.
Not following commands. Speech almost back to baseline.
Uncoordination and/? Ataxia mostly resolved.
Patient feels much better
No vasopressor requirement
Heart rate is 67
Renal function improved.
Potassium normalized
Continue IV fluids
Continue to monitor BMP until normalization.
No additional critical care needs.
Both sons updated by Dr. Mondragon at the bedside 07/02/2025.
Transferred to telemetry
[2025-07-02 17:41] LABS: APTT 82.8 Sec (23.4-35.0)
[2025-07-02 17:54] LABS: Blood Urea Nitrogen 51 mg/dl (7-17); Calcium 8.3 mg/dl (8.4-10.2); Carbon Dioxide 23 mmol/L (22-30); Chloride 103 mmol/L (98-107); Estimated Creatinine Clearance 17 ml/min; Glucose 122 mg/dl (70-99); Potassium 5.2 mmol/L (3.5-5.1); Sodium 134 mmol/L (135-145); eGFR 19.44
[2025-07-02 21:00] LABS: Blood Urea Nitrogen 53 mg/dl (7-17); Calcium 8.4 mg/dl (8.4-10.2); Carbon Dioxide 23 mmol/L (22-30); Chloride 104 mmol/L (98-107); Estimated Creatinine Clearance 16 ml/min; Glucose 117 mg/dl (70-99); Potassium 5.5 mmol/L (3.5-5.1); Sodium 135 mmol/L (135-145); eGFR 17.73
[2025-07-02] MEDS: NOVOLIN R 0.05 UNITS IV (22:08)
[2025-07-02 22:12] LABS: Glucose - Point of Care 101 mg/dl (70-99)
[2025-07-02 23:14] LABS: Glucose - Point of Care 163 mg/dl (70-99)
[2025-07-02] MEDS: TIGAN 200 MG IM (23:20)
[2025-07-03] VITALS (10 sets, daily range): BP systolic 99–138; BP diastolic 51–77; PULSE 55–56; O2SAT 93
[2025-07-03 00:17] LABS: Glucose - Point of Care 123 mg/dl (70-99)
[2025-07-03 00:40] LABS: APTT 71.6 Sec (23.4-35.0)
[2025-07-03 02:09] LABS: Blood Urea Nitrogen 56 mg/dl (7-17); Calcium 8.4 mg/dl (8.4-10.2); Carbon Dioxide 22 mmol/L (22-30); Chloride 106 mmol/L (98-107); Estimated Creatinine Clearance 15 ml/min; Glucose 112 mg/dl (70-99); Potassium 5.3 mmol/L (3.5-5.1); Sodium 138 mmol/L (135-145); eGFR 16.97
[2025-07-03 02:18] LABS: Glucose - Point of Care 199 mg/dl (70-99)
--- NOTE | 2025-07-03 02:24 | W.PN.UPDATE ---
Update Note
Progress Note Update
Notified of patient's K 5.5 and worsening BUN/Cr 53/2.7, Rx 5U regular insulin IV & d50 25g.
Repeat BMP K 5.3 BUN/Cr 56/2.8. Rx 500cc bolus. Continue to monitor BMP.
Notified again that patient got lightheaded and SOB after removing her IV dressing with blood. O2 was increased to 6L, pt sPO2 87-90%.
Upon assessment patient appears comfortable no signs of SOB, no use of accessory muscles. Lungs CTA. Patient's O2 now down to 4L, sPO2 89-90%.
Pt does appear dry, 500cc bolus already ordered.
[2025-07-03] MEDS: NSS 500 IV (02:29)
--- NOTE | 2025-07-03 04:10 | PTCARENOTE ---
Pt. had BMP drawn at around 1999. K+ resulted at 5.5, BUN 53, and creat 2.7. PERLA aSmuels notified. New order rec'd for IV insulin and IV D50. Accucheks taken per protocol following IV insulin administration. Later, pt's L FA IV infiltrated. IV
team contacted to assess. After IV removed, patient removed dressing on site that was still bleeding and attempted to get OOB without assistance. Staff entered room where patient was cleaned up and assisted back to bed. Pt. c/o of feeling dizzy and
SOB while being assisted back to bed. Pulse ox checked, pt satting between 87-90% on 4L. Increased WOB noted. O2 titrated to 6L. PERLA Samuels notified of pulse ox. TECHNICIAN SUPPORT ENGINEER at bedside to assess patient. BMP drawn around 01:20 resulted with K+ 5.3, BUN
56, and creat 2.8. PERLA Samuels notified. New order rec'd for 500mL bolus. O2 titrated back down to 4L via NC. Pt. satting between 89-92%. TECHNICIAN SUPPORT ENGINEER aware. Bed alarm maintained. Plan of care ongoing.
[2025-07-03 04:16] LABS: Glucose - Point of Care 109 mg/dl (70-99)
[2025-07-03] MEDS: SYNTHROID 50 MCG PO (05:00)
[2025-07-03 05:38] LABS: COVID-19 Antigen Negative (Negative)
[2025-07-03] MEDS: NSS 1000 IV ×2 (06:18→15:51)
[2025-07-03] MEDS: TOPROL XL 50 MG PO (08:14)
[2025-07-03 09:50] LABS: APTT 82.6 Sec (23.4-35.0)
--- NOTE | 2025-07-03 11:35 | W.PN.HOSP.TC ---
Today's Communication/Plan
-
Continue supportive IV fluids
Hold home ARB and Lasix
Monitor urine output and BMP
Follow-up a.m. labs
Consideration of HD per nephrology
Assessment / Plan
Assessment / Plan
#Oliguric YELENA
#Hyperkalemia
-Suspect ischemic ATN in the context of circulatory shock as above
-Upon arrival creatinine was near 1.2 though has up trended steadily to 2.8 on most recent lab draw
-Home irbesartan was held upon arrival; nephrology consulted and recommended IV fluids
-Continue maintenance IV fluids and maintain MAP >65
-Avoid nephrotoxic agents, hold diuretic and ARB
-Follow-up urine studies, FE(Na) when available
-Follow-up hepatitis serologies
-Trend BMP and urine output closely
#Circulatory shock
#Bradycardia
#Shock liver
-Suspected prolonged vasovagal state from cardiac ablation and propafenone effect
-Was started on Levophed for hemodynamic support, BP improved though HR still in 50s
-Was weaned off of vasopressors with IV fluids, systemic illumination of propafenone
-At this time maintaining hemodynamic stability without pressors
-Resolved
#Toxic metabolic encephalopathy
-Suspect this is associated with propafenone, YELENA
-Undergoing washout of propafenone with IV fluids as above
-Resolved with IV fluids and time
#Elevated troponin
-Nonischemic myocardial injury secondary to ablation outpatient
-No chest pain, dynamic ECG change or other sign of ACS
-Troponin trend not consistent with ACS
#Paroxysmal AF s/p PVI
-Home medications include metoprolol succinate and Eliquis
-Holding metoprolol as above due to circulatory shock
-Continue on telemetry
#COPD
#GEETHA not on CPAP
#Pulmonary hypertension
-No O2 requirements at baseline, does not wear CPAP nightly
-Likely group 3 pulmonary hypertension from intrinsic lung disease
-No signs of COPD flare at this time; not currently on maintenance therapy
-Monitor clinically, consider LABA/LAMA at discharge for maintenance therapy
#Hypothyroidism
-Unclear etiology, possibly Blanco's
-No signs of abnormal thyroid function at this time
-Continue home levothyroxine dose
#HFpEF
-Per documentation, home meds include Lasix 40 mg
-Home meds include ARB; no SGLT2i or MRA
-Appears euvolemic at this time
-Trend I's and O's + weights
#Dyslipidemia
-No known ASCVD history
-Home regimen includes moderate intensity atorvastatin
Diet: Potassium restricted diet
Thromboprophylaxis: Heparin drip in place of home Eliquis
CODE STATUS: Full code
Disposition: PT consulted
Anticipated Discharge: > 48 hours
Subjective/Interval History
-
Date of Service: July 03, 2025
Seen and examined at the bedside. No acute events reported overnight. AFVSS this morning without vasopressors
Clinically improved over the course of the day yesterday. Patient states she feels much better today, not producing urine at this time however
Morning labs pending. I's and O's with 0 mL output
Objective Data
-
Labs:
Laboratory Results
07/03/25 07/03/25 07/03/25
00:19 01:24 06:00
WBC Pending
Hgb Pending
Hct Pending
Plt Count Pending
APTT 71.6 H
Sodium Cancelled 138 Pending
Potassium Cancelled 5.3 H Pending
Chloride Cancelled 106 Pending
Carbon Dioxide Cancelled 22 Pending
BUN Cancelled 56 H Pending
Creatinine Cancelled 2.8 H Pending
Glucose Cancelled 112 H Pending
Calcium Cancelled 8.4 Pending
Total Bilirubin Pending
AST Pending
ALT Pending
Alkaline Phosphatase Pending
07/03/25 07/03/25
07:49 13:49
WBC
Hgb
Hct
Plt Count
APTT 82.6 H Pending
Sodium
Potassium
Chloride
Carbon Dioxide
BUN
Creatinine
Glucose
Calcium
Total Bilirubin
AST
ALT
Alkaline Phosphatase
Vital Signs:
Vital Signs
Temp Pulse Resp BP Pulse Ox
98.2 F 55 16 105/68 93
07/03/25 11:25 07/03/25 11:24 07/03/25 11:24 07/03/25 11:24 07/03/25 11:24
I&O
07/02/25 07/03/25 07/04/25
06:59 06:59 06:59
Intake Total 663.9 / 675.2 3164.6 / 3164.6
Output Total 0 / 0
Balance 663.9 / 675.2 3164.6 / 3164.6
Review of Systems
-
History Source: Patient
All other systems: Reviewed and negative
Physical Exam
-
General: Well Developed, No Apparent Distress and Other (Frail-appearing)
HEENT: Normocephalic, Atraumatic and Moist Mucous Membranes
Respiratory: Clear to Auscultation and Non Labored Respirations; Negative Accessory Resp Muscle Use
Cardiac: Regular Rhythm and S1/S2; Negative Murmur, Rub, Gallop or Tachycardic
GI: Soft, Nontender, Nondistended and Normal Bowel Sounds
Musculoskeletal: No Clubbing, No Cyanosis and No Edema
Skin: Warm and Dry; Negative Rash
Neuro: AO x 3, Nonfocal/Grossly Intact and Central Nerve's Intact
Psych: Calm
Data Reviewed
-
Labs: Labs Reviewed by me and Discussed with Patient
--- NOTE | 2025-07-03 12:48 | W.PN.CARDCBS ---
Today's Communication / Plan
-
Supportive care with IV fluids
Heparin for stroke risk reduction
Monitor on telemetry
Impression / Plan
-
PCP: Dr. Rocha
Chemical Equipment Sales Engineer: Dr. Martine Mendoza
Physician Coder: Jaime Mendoza
Impression:
Presented 07/01/2025 with syncope, bradycardia, hypotension
Syncope resulting in nasal fractures
Symptomatic bradycardia, possibly related to propafenone pill in pocket dose given 07/01/2025
RV dysfunction
Hyperkalemia
YELENA
Anuric
Abnormal LFTs
Abnormal troponin
Paroxysmal atrial fibrillation
s/p PVI 03/18/2023
s/p CV 02/04/2025
s/p pulsed field PVI plus AF ablation sets X 3 after PVI (LA posterior wall, Inf/floor of the LA posterior wall, Ligament of Tayo) resulting in elimination of the targeted extra PV contributors to atrial fibrillation.
Chronic Eliquis AC
Heart failure with preserved ejection fraction
Pulmonary HTN
COPD
HTN
HLD
Mild-mod MR by echo 11/2024
RAUL 03/12/2023: EF 55-60%, mild MR, moderate to severe TR, estimated PAP 31 mmHg
Echo 11/26/2023: EF 55-60%, moderate MR, moderate to severe TR, estimated PAP 52 mmHg,
Echo 12/01/2024: EF 54%, mild to mod MR, mod TR, estimated PAP 51 mmHg
Echo 07/02/2025: EF 50%, mod MR, sev TR PASP 28 mmHg; dilated RV with RV dysfunction
Plan:
- Presented 07/01/2025 with syncopal episode and found to be bradycardic and hypotensive. Patient had pulsed field PVI ablation earlier that day and had atrial tachycardia following procedure and was provided 450 mg of oral propafenone +50 mg of
Toprol. She was then discharged home and later had syncopal episode.
- Suspect syncope is related to pill in pocket propafenone dose and metoprolol. All AV alice blocking agents currently on hold
-Given PVI ablation within 24 hours would start IV heparin with eventual transition to OAC. Pending renal function patient may need renal dosing of Eliquis
- Outpatient irbesartan and metoprolol currently on hold
- YELENA. Suspect to be volume depleted. Also having hyperkalemia despite Lokelma, IV insulin and dextrose. Nephrology consult; supportive care with IVF
- Follow renal function and electrolytes closely with labs every 4 hours
- Abnormal troponin suspected be nonischemic myocardial injury from PVI ablation on 07/01/2025. Troponin on admission, 10.7 and is now trending downward
- Abnormal LFTs. Abdominal ultrasound without any acute abnormalities. Suspect secondary to hypotension
- Altered mental status seems to be waxing and waning, resolved. Head CT x 2 unremarkable for stroke or bleed. Continue to follow
[facility] 07/02/2025:
Jessica is a 74 year old female with PMH of paroxysmal atrial fibrillation s/p PVI 2022 with repeat PVI 07/01/2025, pulmonary HTN, COPD, HTN, HLD, heart failure with preserved ejection fraction, and MR who presents to emergency department 07/01/2025
with syncope. Patient had PVI ablation day earlier that day. Postprocedure she was found to have atrial tachycardia with heart elevated heart rates 120-150's bpm and was provided propafenone 450 mg along with home Toprol of 50 mg with anglican
of sinus rhythm. There was concern of volume overload and she was provided 40 mg of IV Lasix. Later that afternoon patient later was deemed stable for discharge and went home. Later that evening patient had syncopal episode striking face
resulting in nasal bone fracture. EMS was called and on arrival patient was found to be bradycardic and hypotensive. She was provided several doses of atropine and fluid bolus. On presentation to emergency department she was noted to have YELENA
with creatinine of 1.6 and potassium of 6.8. LFTs elevated at AST 290, ALT 150. Troponin 10.7. EKG on admission showed sinus bradycardia with first-degree AV block, IVCD, QTc 548 ms. She was provided additional episodes of atropine and placed on
Levophed and one dose of IV Lasix. She was provided Lokelma, dextrose and insulin with improvement of potassium to 4.9 however upon repeat labs potassium 6.1. Patient was noted to have altered mental status and underwent head CT x 2 which showed
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 Given elevated LFTs patient underwent abdominal ultrasound which showed small volume of ascites within abdomen and thickened gallbladder with no stones or sludge.
At time of this evaluation patient lying in bed it appears to be somewhat restless but denies being in pain to me. She is oriented to person place and time. Heart rates in 50s to 60s on Levophed 3 mics per kilogram per minute. Per nursing patient
has been an uric and bladder scan did not show any significant urine retention.
Progress Note - Chemical Equipment Sales Engineer
Subjective
Date of Service: July 03, 2025
Patient seen and examined. No acute events overnight. Patient resting comfortably in bed. Denies any chest pain, shortness of breath, palpitations. Patient mentation significantly improved per patient and daughter. She reports some memory
issues however. Telemetry demonstrates sinus bradycardia with occasional PACs. No AF or AT.
Objective
Labs:
Labs
Hgb 11.2 g/dL (12.0-16.0) L 07/02/25 10:15
Hct 34.4 % (37.0-47.0) L 07/02/25 10:15
Plt Count 144 10^3/uL (130-400) 07/02/25 10:15
PT 23.5 Sec (11.4-14.6) H 07/02/25 02:05
INR 2.04 07/02/25 02:05
APTT 82.6 Sec (23.4-35.0) H 07/03/25 07:49
Sodium 138 mmol/L (135-145) 07/03/25 01:24
Potassium 5.3 mmol/L (3.5-5.1) H 07/03/25 01:24
BUN 56 mg/dl (7-17) H 07/03/25 01:24
Creatinine 2.8 mg/dL (0.6-1.0) H 07/03/25 01:24
Glucose 112 mg/dl (70-99) H 07/03/25 01:24
Troponins
07/01/25 07/02/25 07/02/25
21:04 00:07 02:05
Troponin I 10.700 H* 9.800 H* 9.990 H*
07/02/25 07/02/25 07/02/25
08:26 12:00 18:00
Troponin I 9.500 H* Cancelled Cancelled
Vital Signs and I&O:
Vital Signs
Temp Pulse Resp BP Pulse Ox
98.2 F 55 16 105/68 93
07/03/25 11:25 07/03/25 11:24 07/03/25 11:24 07/03/25 11:24 07/03/25 11:24
Vital Signs
Temp Pulse Resp BP Pulse Ox
98.2 F 55 16 105/68 93
07/03/25 11:25 07/03/25 11:24 07/03/25 11:24 07/03/25 11:24 07/03/25 11:24
Intake & Output
07/01/25 07/02/25 07/03/25 07/04/25
06:59 06:59 06:59 06:59
Intake Total 663.9 / 675.2 3164.6 / 3164.6
Output Total 0 / 0
Balance 663.9 / 675.2 3164.6 / 3164.6
Physical Exam
Physical Exam
GEN: No distress, awake, Ox3
HEENT: supple, anicteric, mmm
LUNGS: Clear to auscultation bilaterally, no wheezes, rhonchi, rales
CV: Regular rate and rhythm, 1/6 syst LSB, no murmur
ABD: soft, BS+, NT/ND
EXT: No edema
NEURO: Gross non-focal
SKIN: No rash
--- NOTE | 2025-07-03 12:51 | W.PN.NEPH.PH ---
Today's Communication / Plan
-
follow BMP
Assessment/Plan
-
IMPRESSION:
Bradycardic shock
lactic acidosis
Worsening YELENA with anuria
Hyperkalemia
Acute encephalopathy
Syncope with facial trauma
Status post PVI for afib
Shock liver
PLAN:
Follow BMP
Follow LFTs
IV fluids isotonic
Check urine studies when available
I suspect YELENA is plateauing
-
-
Date of Service: July 03, 2025
CC / HPI / ROS
-
Chief Complaint:
YELENA
History of Present Illness:
YELENA/Cr up to 2.8
BP better, slightly low
K 5.3
Na normal
Review of Systems:
no CP/SOB
Labs
-
Labs:
eGFR 16.97 07/03/25 01:24
Physical Exam
-
Vital Signs:
Vital Signs
Temp Pulse Resp BP Pulse Ox
98.2 F 55 16 105/68 93
07/03/25 11:25 07/03/25 11:24 07/03/25 11:24 07/03/25 11:24 07/03/25 11:24
Cardiovascular:: Regular rate and rhythm
Respiratory:: Bilateral: CTA
Lung Excursion:: Normal
Abdomen:: Nontender and Soft
Bowel Sounds:: Normal
Extremity Edema:: None: Bilateral:
[2025-07-03 14:19] LABS: Hematocrit 33.8 % (37.0-47.0); Hemoglobin 11.0 g/dL (12.0-16.0); Mean Corp Hgb Conc. 32.5 g/dL (33.0-37.0); Mean Corpuscular Volume 92.1 fL (81.0-99.0); Nucleated Red Blood Cells % 0.4 %; Platelet Count 145 10^3/uL (130-400); Red Cell Dist. Width 15.2 % (11.5-14.5)
[2025-07-03 14:37] LABS: APTT 165.4 Sec (23.4-35.0)
[2025-07-03 15:08] LABS: ALT (SGPT) 599 U/L (0-35); Albumin 4.0 g/dl (3.5-5.0); Alkaline Phosphatase 109 U/L (38-126); Blood Urea Nitrogen 61 mg/dl (7-17); Calcium 8.2 mg/dl (8.4-10.2); Carbon Dioxide 17 mmol/L (22-30); Chloride 106 mmol/L (98-107); Estimated Creatinine Clearance 14 ml/min; Glucose 102 mg/dl (70-99); Magnesium 2.0 mg/dl (1.6-2.3); Potassium 5.4 mmol/L (3.5-5.1); Sodium 135 mmol/L (135-145); Total Protein 6.3 g/dl (6.3-8.2); eGFR 15.02
[2025-07-03 15:26] LABS: AST (SGOT) 844 U/L (14-36)
--- NOTE | 2025-07-03 15:28 | W.PN.GI.CBS2 ---
Today's Communication / Plan
-
Continue to trend LFT
Hemodynamic stability
Assessment / Plan
-
74-year-old female with past medical history of paroxysmal A-fib, status post PVI 2022 with repeat PVI 07/01/2025, pulmonary hypertension, COPD, hypertension, hyperlipidemia, HFpEF, MR, osteopenia, obstructive sleep apnea, former smoker,
hypothyroidism who presents to the emergency room with syncope after having PVI ablation earlier that day. History obtained from the chart and nursing as patient unable to give history. After the procedure she had episodes of A-fib and elevated
filling pressures. She was given propafenone 450 mg along with home Toprol of 50 mg with bahai of sinus rhythm. There was concern of volume overload and she was provided 40 mg of IV Lasix. The patient had an episode of syncope at home. She
fell from the couch and hit the bridge of her nose. EMS was called. She was given multiple doses of atropine for symptomatic bradycardia. She also required doses of atropine in the ER. Also found to be hyperkalemic and was given Lasix for this.
Her hyperkalemia was treated with Lasix, calcium gluconate, insulin dextrose and Lokelma. The patient had hypotension with 70s over 40s and was placed on Levophed. She was noted to be in first-degree AV block. She had a troponin of 10. She had
altered mental status and had CT of the head x 2. We are asked to evaluate for elevated LFTs.
Prior LFTs on occasion she will have mild elevation of AST and ALT in the 40 range. Prior review of imaging studies of the liver always showed the liver to be normal. Patient may drink a couple glasses of wine a night. RN spoke to son who states
that she may go couple days without drinking alcohol. LFTs January 2025 demonstrate completely normal LFTs with total bilirubin 0.8, AST at 36, ALT 35 and alk phos of 104. LFTs 06/21/2025 showed total bilirubin 1.9, AST 40, ALT 32, alk phos 112. On
presentation total bilirubin 5.6, AST 290, ALT 150 alk phos of 114, CK1 74, troponin 10.7. Repeat LFTs currently total bilirubin 5.5, direct bilirubin 2.2, AST 605, ALT 322, alk phos 108, ammonia less than 9, troponin 9.99 with repeat troponin 9.5.
She did have a lactic acid of 4.2 now decreasing to 3.0. WBC 10.1, hemoglobin 11.6, hematocrit 35.3, platelets 152, PT 23.5, INR 2.04, sodium 136, potassium 6.1 (down from 6.8), CO2 19, BUN 40 (increased from 36), creatinine 1.8 (up from 1.6),
glucose 200. Alcohol not detected. Acetaminophen level 24. Ultrasound of the abdomen shows small volume ascites within the abdomen. Contrasted/thickened gallbladder with no stones or sludge appreciated. The wall thickening is nonspecific
possibly active in nature and related to patient's ascites versus underdistention. Liver 15.8 cm. Homogeneous echo texture with no discrete lesions. Bile duct measures 2 mm. No intrahepatic ductal dilatation. Will ask radiology to comment on
Doppler images.
Impression
Hx of paroxysmal A-fib status post PVI ( 07/01 )/ syncope /bradycardia/cardiogenic shock
Elevated LFT-likely secondary to shock liver
YELENA
Lactic acidosis
Metabolic encephalopathy
Nasal fractures
plan
This a.m. labs- AST 844/ALT 599 trending up from yesterday labs of AST 605/ALT 322. Total bilirubin is trending down from 5.5 to 2 today.
Hemodynamic stability as per medical team/cardiology
Continue to monitor LFT
Will add acute hepatitis panel (Less likely )-pending
US Abdomen-normal liver. Small volume ascites. Thickened gallbladder with no stones or sludge. Will add Doppler study to check -vasculature
Total Time Spent with Patient (in minutes): 35
Subjective
Subjective
Date of Service: July 03, 2025
No GI complaints
Objective
Data Reviewed
Laboratory Data:
Laboratory Results
07/03/25 14:00
07/03/25 14:00
Laboratory Results
PT 23.5 Sec (11.4-14.6) H 07/02/25 02:05
INR 2.04 07/02/25 02:05
APTT 165.4 Sec (23.4-35.0) H* 07/03/25 14:00
Phosphorus 6.4 mg/dl (2.5-4.5) H 07/03/25 14:00
Magnesium 2.0 mg/dl (1.6-2.3) 07/03/25 14:00
Total Bilirubin 2.0 mg/dl (0.2-1.3) H D 07/03/25 14:00
AST 844 U/L (14-36) H* 07/03/25 14:00
ALT 599 U/L (0-35) H* 07/03/25 14:00
Alkaline Phosphatase 109 U/L (38-126) 07/03/25 14:00
Vital Signs and I&O:
Vital Signs
Temp Pulse Resp BP Pulse Ox
96.3 F L 55 16 114/51 93
07/03/25 15:03 07/03/25 15:03 07/03/25 15:03 07/03/25 15:03 07/03/25 15:03
I&O
07/02/25 07/03/25 07/04/25
06:59 06:59 06:59
Intake Total 663.9 / 675.2 3164.6 / 3164.6
Output Total 0 / 0
Balance 663.9 / 675.2 3164.6 / 3164.6
Physical Exam
Physical Exam
GI: Soft, Non Distended and Non Tender
--- NOTE | 2025-07-03 15:34 | CM ---
Patient seen at bedside with daughter Za
IA completed
PMH: CHF with preserved EF, permanent atrial fibrillation on anticoagulation, hypothyroid, pulmonary hypertension, chronic obstructive pulmonary disease otherwise unspecified, hypertension presents to the emergency department with syncopal episode
after undergoing ablation on 07/01.
Patient on oxygen currently, does not have home oxygen
Patient lives with her son and his children in a multi-story home, flight of stairs to bedroom/bathroom, powder room on 1st floor
PLOF: Independent, denies using assistive device
DME: Cane, walker
Denies VN/Rehab
PT eval - home PT vs SNF
PCP: Curry Dutton
Pharmacy: [facility] , [place]
PLAN: home PT vs. SNF, CM to continue to follow for needs
[2025-07-03 19:10] LABS: Hepatitis B Surface Antigen Negative (Negative)
[2025-07-03 19:27] LABS: Hepatitis C Antibody Negative (Negative)
--- NOTE | 2025-07-03 19:35 | W.PN.UPDATE ---
Update Note
Progress Note Update
-Reported by the nursing staff that the patient is wheezing. afebrile, SPO2 92% on 3 L of O2, bp 119/71, hr 59.
-Denies SOB or chest pain. Expiratory wheezing noted during the exam.
-Duo neb and chest x-ray ordered
chest x-ray result shows No acute cardiopulmonary process.
Covid &flu neg on admission.
--- NOTE | 2025-07-03 21:22 | TRANSFER ---
pt transferred via bed down to room 2137 on . prior to transport report called to [facility]. all belongings brought from [facility] to 2127 by son. pt pulled over to bed in room 2137.
[2025-07-03] MEDS: DUONEB 3 ML INH (21:33)
[2025-07-03 22:10] LABS: APTT 63.7 Sec (23.4-35.0)
[2025-07-04] VITALS (9 sets, daily range): BP systolic 98–145; BP diastolic 52–95; BMI 22.4
[2025-07-04] MEDS: HEPARIN 25000 UNITS/250 ML IV
[2025-07-04 01:32] LABS: Urine Character Clear (Clear)
[2025-07-04 01:41] LABS: Urine Squamous Cell 0-2 /LPF (Few)
[2025-07-04 01:43] LABS: Urine Red Blood Cell 0-2 /HPF (0-2)
[2025-07-04] MEDS: VALIUM INJECTION 2 MG IV (02:47)
[2025-07-04] MEDS: NSS 1000 IV (02:47)
--- NOTE | 2025-07-04 03:17 | PTCARENOTE ---
Pt AAOx1, forgetful and confused. Pt is noncooperative. Anxious. Pt refuses to listen to anyone even her son who is at bedside. Pt is verbally aggressive and at times physically. Pt is on 4-6 L O2, dyspneic w/ exertion Diminished and wheezing. SaO2
92-96%. SB in the monitor. Pt had diffiucly urinating, pt was Bladder scan for >400. Straight cath for 375 as pt became physically aggressive. A few min later pt voided in the commode. Abd round and had a small BM. Pt was agitated that [employer]GRAM MANAGER was
notified requiring a small dose of IV Valium. Refuse to stay in bed and is a high fall risk. Bed alarm i place. Will cont w/ tx plan.
[2025-07-04] MEDS: SYNTHROID 50 MCG PO (04:48)
[2025-07-04 05:04] LABS: Hematocrit 32.3 % (37.0-47.0); Hemoglobin 10.4 g/dL (12.0-16.0); Mean Corp Hgb Conc. 32.2 g/dL (33.0-37.0); Mean Corpuscular Volume 92.6 fL (81.0-99.0); Platelet Count 134 10^3/uL (130-400); Red Cell Dist. Width 15.2 % (11.5-14.5)
[2025-07-04 05:14] LABS: APTT 101.0 Sec (23.4-35.0)
[2025-07-04 05:32] LABS: ALT (SGPT) 627 U/L (0-35); Albumin 4.0 g/dl (3.5-5.0); Alkaline Phosphatase 118 U/L (38-126); Blood Urea Nitrogen 69 mg/dl (7-17); Calcium 8.2 mg/dl (8.4-10.2); Carbon Dioxide 18 mmol/L (22-30); Chloride 107 mmol/L (98-107); Estimated Creatinine Clearance 13 ml/min; Glucose 92 mg/dl (70-99); Potassium 5.7 mmol/L (3.5-5.1); Sodium 136 mmol/L (135-145); Total Protein 6.4 g/dl (6.3-8.2); eGFR 13.93
[2025-07-04 05:44] LABS: AST (SGOT) 741 U/L (14-36)
[2025-07-04 06:14] LABS: Glucose - Point of Care 85 mg/dl (70-99)
[2025-07-04] MEDS: DEXTROSE 50% SYRINGE 25 GRAMS IV (06:19)
[2025-07-04] MEDS: NOVOLIN R 0.05 UNITS IV (06:24)
[2025-07-04] MEDS: SODIUM BICARBONATE 50 MEQ IV (06:26)
[2025-07-04] MEDS: LOKELMA 10 GRAM PO (06:45)
[2025-07-04 07:54] LABS: Glucose - Point of Care 128 mg/dl (70-99)
[2025-07-04 08:57] LABS: Glucose - Point of Care 107 mg/dl (70-99)
[2025-07-04] MEDS: TOPROL XL PO (09:03)
[2025-07-04] MEDS: LR 1000 IV (09:13)
[2025-07-04] MEDS: DUONEB 3 ML INH (10:44)
[2025-07-04 10:51] LABS: Glucose - Point of Care 102 mg/dl (70-99)
--- NOTE | 2025-07-04 11:17 | W.PN.CARDCBS ---
Today's Communication / Plan
-
Monitor renal function, appreciate input by nephrology
Monitor on telemetry hold beta-jim, ARB
Supportive care
Impression / Plan
-
PCP: Dr. Rocha
Cloth Examiner: Dr. Martine Mendoza
It Auditor: Jaime Mendoza
Impression:
Presented 07/01/2025 with syncope, bradycardia, hypotension
Syncope resulting in nasal fractures
Symptomatic bradycardia, possibly related to propafenone pill in pocket dose given 07/01/2025, now asymptomatic
RV dysfunction
Hyperkalemia
YELENA, worsening
Anuric
Abnormal LFTs
Abnormal troponin
Paroxysmal atrial fibrillation
s/p PVI 03/18/2023
s/p CV 02/04/2025
s/p pulsed field PVI plus AF ablation sets X 3 after PVI (LA posterior wall, Inf/floor of the LA posterior wall, Ligament of Tayo) resulting in elimination of the targeted extra PV contributors to atrial fibrillation.
Chronic Eliquis AC
Heart failure with preserved ejection fraction
Pulmonary HTN
COPD
HTN
HLD
Mild-mod MR by echo 11/2024
RAUL 03/12/2023: EF 55-60%, mild MR, moderate to severe TR, estimated PAP 31 mmHg
Echo 11/26/2023: EF 55-60%, moderate MR, moderate to severe TR, estimated PAP 52 mmHg,
Echo 12/01/2024: EF 54%, mild to mod MR, mod TR, estimated PAP 51 mmHg
Echo 07/02/2025: EF 50%, mod MR, sev TR PASP 28 mmHg; dilated RV with RV dysfunction
Plan:
- Presented 07/01/2025 with syncopal episode and found to be bradycardic and hypotensive. Patient had pulsed field PVI ablation earlier that day and had atrial tachycardia following procedure and was provided 450 mg of oral propafenone +50 mg of
Toprol. She was then discharged home and later had syncopal episode.
- Suspect syncope is related to pill in pocket propafenone dose and metoprolol. All AV alice blocking agents currently on hold
- Given PVI ablation within 24 hours would start IV heparin with eventual transition to OAC. Pending renal function patient may need renal dosing of Eliquis
- Outpatient irbesartan and metoprolol currently on hold
- YELENA. Suspect to be volume depleted. Also having hyperkalemia despite Lokelma, IV insulin and dextrose. Nephrology consult; supportive care with IVF
- Follow renal function and electrolytes closely; LFTs downtrending however renal function worsening
- Abnormal troponin suspected be nonischemic myocardial injury from PVI ablation on 07/01/2025. Troponin on admission, 10.7 and is now trending downward
- Abnormal LFTs. Abdominal ultrasound without any acute abnormalities. Suspect secondary to hypotension
- Altered mental status seems to be waxing and waning, resolved. Head CT x 2 unremarkable for stroke or bleed. Continue to follow
HPI 07/02/2025:
Jessica is a 74 year old female with PMH of paroxysmal atrial fibrillation s/p PVI 2022 with repeat PVI 07/01/2025, pulmonary HTN, COPD, HTN, HLD, heart failure with preserved ejection fraction, and MR who presents to emergency department 07/01/2025
with syncope. Patient had PVI ablation day earlier that day. Postprocedure she was found to have atrial tachycardia with heart elevated heart rates 120-150's bpm and was provided propafenone 450 mg along with home Toprol of 50 mg with scientologist
of sinus rhythm. There was concern of volume overload and she was provided 40 mg of IV Lasix. Later that afternoon patient later was deemed stable for discharge and went home. Later that evening patient had syncopal episode striking face
resulting in nasal bone fracture. EMS was called and on arrival patient was found to be bradycardic and hypotensive. She was provided several doses of atropine and fluid bolus. On presentation to emergency department she was noted to have YELENA
with creatinine of 1.6 and potassium of 6.8. LFTs elevated at AST 290, ALT 150. Troponin 10.7. EKG on admission showed sinus bradycardia with first-degree AV block, IVCD, QTc 548 ms. She was provided additional episodes of atropine and placed on
Levophed and one dose of IV Lasix. She was provided Lokelma, dextrose and insulin with improvement of potassium to 4.9 however upon repeat labs potassium 6.1. Patient was noted to have altered mental status and underwent head CT x 2 which showed
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 Given elevated LFTs patient underwent abdominal ultrasound which showed small volume of ascites within abdomen and thickened gallbladder with no stones or sludge.
At time of this evaluation patient lying in bed it appears to be somewhat restless but denies being in pain to me. She is oriented to person place and time. Heart rates in 50s to 60s on Levophed 3 mics per kilogram per minute. Per nursing patient
has been an uric and bladder scan did not show any significant urine retention.
Progress Note - Cloth Examiner
Subjective
Date of Service: July 04, 2025
Patient seen and examined's morning. No acute events overnight. Patient resting comfortably in bed. Notes shortness of breath and wheezing. Denies chest pain, lightheadedness, dizziness, near-syncope syncope or weakness. Notes some urine output
but not much.
Objective
Labs:
07/04/25 04:45
Labs
Hgb 10.4 g/dL (12.0-16.0) L 07/04/25 04:45
Hct 32.3 % (37.0-47.0) L 07/04/25 04:45
Plt Count 134 10^3/uL (130-400) 07/04/25 04:45
PT 23.5 Sec (11.4-14.6) H 07/02/25 02:05
INR 2.04 07/02/25 02:05
APTT 101.0 Sec (23.4-35.0) H 07/04/25 04:45
Sodium 136 mmol/L (135-145) 07/04/25 04:45
Potassium 5.7 mmol/L (3.5-5.1) H 07/04/25 04:45
BUN 69 mg/dl (7-17) H 07/04/25 04:45
Creatinine 3.3 mg/dL (0.6-1.0) H 07/04/25 04:45
Glucose 92 mg/dl (70-99) 07/04/25 04:45
Troponins
07/01/25 07/02/25 07/02/25
21:04 00:07 02:05
Troponin I 10.700 H* 9.800 H* 9.990 H*
07/02/25 07/02/25 07/02/25
08:26 12:00 18:00
Troponin I 9.500 H* Cancelled Cancelled
Vital Signs and I&O:
Vital Signs
Temp Pulse Resp BP Pulse Ox
97.7 F 57 18 111/57 95
07/04/25 07:54 07/04/25 10:50 07/04/25 10:50 07/04/25 09:03 07/04/25 10:50
Vital Signs
Temp Pulse Resp BP Pulse Ox
97.7 F 57 18 111/57 95
07/04/25 07:54 07/04/25 10:50 07/04/25 10:50 07/04/25 09:03 07/04/25 10:50
Intake & Output
07/02/25 07/03/25 07/04/25 07/05/25
06:59 06:59 06:59 06:59
Intake Total 663.9 / 675.2 3164.6 / 3164.6 2079
Output Total 0 / 0 375 / 375
Balance 663.9 / 675.2 3164.6 / 3164.6 1704
Physical Exam
Physical Exam
GEN: No distress, awake, Ox3
HEENT: supple, anicteric, mmm
LUNGS: Good inspiratory effort, positive wheezes, no rhonchi, rales
CV: Regular rate and rhythm, 1/6 syst LSB, no murmur
ABD: soft, BS+, NT/ND
EXT: No edema
NEURO: Gross non-focal
SKIN: No rash
Telemetry shows sinus bradycardia
--- NOTE | 2025-07-04 11:53 | PTCARENOTE ---
after discussion with LR decreased from 75ml/hr to 50ml/hr. pt with increased LE swelling and gen anasarca. pt with ex wheeze and dry, harsh occ. cough. prn duoneb completed with respiratory and prn Robitussin ordered. Heparin gtt running at
8ml/hr. pt and daughter educated on updates at bedside.
--- NOTE | 2025-07-04 11:55 | W.PN.HOSP.TC ---
Addendum entered and electronically signed by Casey Espinosa DO 07/05/25 18:32:
CDI: Acute Hypoxic respiratory failure was present
Original Note:
Today's Communication/Plan
-
Reduced rate of IV fluids
Check BNP and CXR
Monitor BMP and urine output
Trend LFTs and plan US for tomorrow
Delirium precautions
Assessment / Plan
Assessment / Plan
#Anuric YELENA
#Hyperkalemia
-Suspect ischemic ATN in the context of circulatory shock as above; now producing urine
-Upon arrival creatinine was near 1.2 though has up trended steadily to 2.8 on most recent lab draw
-Home irbesartan was held upon arrival; nephrology consulted and recommended IV fluids
-Continue maintenance IV fluids and maintain MAP >65
-Avoid nephrotoxic agents, hold diuretic and ARB
-Follow-up urine studies, FE(Na) when available
-Follow-up hepatitis serologies
-Trend BMP and urine output closely
#Acute hypoxemic respiratory insufficiency
-Likely degree of iatrogenic volume overload with IV fluids received here
-Has been stable on 2 L of O2, denies any symptoms at rest
-Will reduce rate of IV fluids now that she is making urine
-Will plan to resume Lasix when okay with in home baby sitter
-Order BNP and chest x-ray
-Wean O2 for SpO2 goal >90%
#Circulatory shock
#Bradycardia
#Shock liver
-Suspected prolonged vasovagal state from cardiac ablation and propafenone effect
-Was started on Levophed for hemodynamic support, BP improved though HR still in 50s
-Was weaned off of vasopressors with IV fluids, systemic illumination of propafenone
-At this time maintaining hemodynamic stability without pressors
-Resolved, continue to trend LFTs towards normal
#Toxic metabolic encephalopathy
#Hospital delirium
-Suspect this is associated with propafenone, YELENA
-Undergoing washout of propafenone with IV fluids as above
-Mental status improved though intermittently sundowning
-Delirium precautions
#Elevated troponin
-Nonischemic myocardial injury secondary to ablation outpatient
-No chest pain, dynamic ECG change or other sign of ACS
-Troponin trend not consistent with ACS
#Paroxysmal AF s/p PVI
-Home medications include metoprolol succinate and Eliquis
-Holding metoprolol as above due to circulatory shock
-Continue on telemetry
#COPD
#GEETHA not on CPAP
#Pulmonary hypertension
-No O2 requirements at baseline, does not wear CPAP nightly
-Likely group 3 pulmonary hypertension from intrinsic lung disease
-No signs of COPD flare at this time; not currently on maintenance therapy
-Monitor clinically, consider LABA/LAMA at discharge for maintenance therapy
#Hypothyroidism
-Unclear etiology, possibly Blanco's
-No signs of abnormal thyroid function at this time
-Continue home levothyroxine dose
#HFpEF
-Per documentation, home meds include Lasix 40 mg
-Home meds include ARB; no SGLT2i or MRA
-Appears euvolemic at this time
-Trend I's and O's + weights
#Dyslipidemia
-No known ASCVD history
-Home regimen includes moderate intensity atorvastatin
Diet: Potassium restricted diet
Thromboprophylaxis: Heparin drip in place of home Eliquis
CODE STATUS: Full code
Disposition: PT consulted
Anticipated Discharge: > 48 hours
Subjective/Interval History
-
Date of Service: July 04, 2025
Seen and examined at the bedside. Overnight had likely episode of delirium though no other acute medical events. AFVSS on 2 L O2
Renal function appears to be plateauing, patient now producing urine.
Denies any complaints including chest pain or dyspnea
Objective Data
-
Labs:
Laboratory Results
07/04/25 07/04/25
04:45 11:24
WBC 9.8
Hgb 10.4 L
Hct 32.3 L
Plt Count 134
APTT 101.0 H Pending
Sodium 136
Potassium 5.7 H Pending
Chloride 107
Carbon Dioxide 18 L
BUN 69 H
Creatinine 3.3 H
Glucose 92
Calcium 8.2 L
Total Bilirubin 1.9 H
AST 741 H*
ALT 627 H*
Alkaline Phosphatase 118
Vital Signs:
Vital Signs
Temp Pulse Resp BP Pulse Ox
97.7 F 57 18 111/57 95
07/04/25 07:54 07/04/25 10:50 07/04/25 10:50 07/04/25 09:03 07/04/25 10:50
I&O
07/03/25 07/04/25 07/05/25
06:59 06:59 06:59
Intake Total 3164.6 / 3164.6 2079
Output Total 0 / 0 375 / 375
Balance 3164.6 / 3164.6 170 / 1705
Review of Systems
-
History Source: Patient
All other systems: Reviewed and negative
Physical Exam
-
General: Well Developed, Well Nourished and No Apparent Distress
HEENT: Normocephalic, Atraumatic and Moist Mucous Membranes
Respiratory: Non Labored Respirations and Decreased Breath Sounds (Bases); Negative Wheezes, Rales, Rhonchi or Accessory Resp Muscle Use
Cardiac: Regular Rhythm and S1/S2; Negative Murmur, Rub or Gallop
GI: Soft, Nontender, Nondistended and Normal Bowel Sounds
Musculoskeletal: No Clubbing, No Cyanosis and No Edema
Skin: Warm and Dry; Negative Rash
Neuro: AO x 3 and Nonfocal/Grossly Intact; Negative Tremors
Psych: Calm
Data Reviewed
-
Labs: Labs Reviewed by me, Discussed with Patient and Discussed with Family
[2025-07-04] MEDS: ROBITUSSIN 200 MG PO (11:56)
[2025-07-04 12:05] LABS: APTT 104.1 Sec (23.4-35.0)
[2025-07-04 12:14] LABS: Potassium 4.5 mmol/L (3.5-5.1)
[2025-07-04 12:35] LABS: COVID-19 Antigen Negative (Negative)
--- NOTE | 2025-07-04 13:29 | W.PN.NEPH.PH ---
Today's Communication / Plan
-
follow BMP
Assessment/Plan
-
IMPRESSION:
Bradycardic shock
lactic acidosis
Worsening YELENA with anuria
Hyperkalemia
Acute encephalopathy
Syncope with facial trauma
Status post PVI for afib
Shock liver
PLAN:
Follow BMP
Follow LFTs
IV fluids isotonic with bicarb
Cr is plateauing
serial BMP
treat K medically
-
-
Date of Service: July 04, 2025
CC / HPI / ROS
-
Chief Complaint:
YELENA
History of Present Illness:
YELENA/Cr up to 3.3
BP better, slightly low
K 5.7
Na normal 136
Review of Systems:
no CP/SOB
hallucinating
Labs
-
Labs:
WBC 9.8 10^3/uL (4.8-10.8) 07/04/25 04:45
RBC 3.49 10^6/uL (4.20-5.40) L 07/04/25 04:45
Hgb 10.4 g/dL (12.0-16.0) L 07/04/25 04:45
Hct 32.3 % (37.0-47.0) L 07/04/25 04:45
Plt Count 134 10^3/uL (130-400) 07/04/25 04:45
Sodium 136 mmol/L (135-145) 07/04/25 04:45
Potassium 4.5 mmol/L (3.5-5.1) 07/04/25 11:24
Chloride 107 mmol/L (98-107) 07/04/25 04:45
Carbon Dioxide 18 mmol/L (22-30) L 07/04/25 04:45
BUN 69 mg/dl (7-17) H 07/04/25 04:45
Creatinine 3.3 mg/dL (0.6-1.0) H 07/04/25 04:45
eGFR 13.93 07/04/25 04:45
Glucose 92 mg/dl (70-99) 07/04/25 04:45
Calcium 8.2 mg/dl (8.4-10.2) L 07/04/25 04:45
Phosphorus 6.4 mg/dl (2.5-4.5) H 07/03/25 14:00
Albumin 4.0 g/dl (3.5-5.0) 07/04/25 04:45
Physical Exam
-
Vital Signs:
Vital Signs
Temp Pulse Resp BP Pulse Ox
97.5 F 61 20 117/56 95
07/04/25 12:02 07/04/25 12:02 07/04/25 12:02 07/04/25 12:02 07/04/25 12:02
Cardiovascular:: Regular rate and rhythm
Respiratory:: Bilateral: Coarse
Lung Excursion:: Normal
Abdomen:: Nontender and Soft
Bowel Sounds:: Normal
Extremity Edema:: None: Bilateral:
[2025-07-04] MEDS: SODIUM BICARBONATE 1150 MEQ IV (13:54)
[2025-07-04] MEDS: LOPRESSOR 5 MG IV (18:16)
--- NOTE | 2025-07-04 18:47 | PTCARENOTE ---
pt sitting bradycardic all day for this RN until 1800. pt sitting asymptomatic with HR in 120-130s in afib. hx of Afib and previous ablation. made aware. stat dose of lopressor 5mg given through IV. prn order obtained for q4prn if sustaining >130
bpm. EKG obtained. MD states to monitor. Verbal given to DC IVF.
[2025-07-04 19:20] LABS: Glucose - Point of Care 85 mg/dl (70-99)
[2025-07-04] MEDS: TYLENOL 650 MG PO (19:58)
[2025-07-04] MEDS: TOPROL XL 12.5 MG PO (19:58)
[2025-07-04] MEDS: LASIX 40 MG IV (20:36)
--- NOTE | 2025-07-04 20:56 | W.PN.UPDATE ---
Update Note
Progress Note Update
Responded to RR due to patient HR aflutter, uncontrolled up to 170s unsustained before receiving Lopressor 5 mg IV x1 at 1815. She is mildly sob but able to converse. O2 2L nc at 98%. Wheezes on auscultation.BNP elevated to 5470 from 2600 SBP 140s
denies CP. Reviewed case with Dr. Slater from Cardiology and toprol xl 25 mg x1 now. Reviewed case with nephrology Dr. Ji and agreed on Lasix 40 mg IV x1. Reviewed CXR from previous days ( 1 portable and one 2 view). with Powdered Metal Supervisor Dr. Ag.
Blood cultures x2 to be drawn prior to Zosyn (renal dose) starting for possible PNA RLL which could be silent aspiration. She did have low grade temp rectally at 100.5. Tylenol given. Of note patients Heparin IV site is oozing and we have add ice
pack along with pressure dressing with ABDs and Chux. Will check HH and PTT. Her am dose of Toprol this am was held due to HR 55 which was the parameter.
[2025-07-04 21:24] LABS: Hematocrit 29.1 % (37.0-47.0); Hemoglobin 10.0 g/dL (12.0-16.0); Mean Corp Hgb Conc. 34.4 g/dL (33.0-37.0); Mean Corpuscular Volume 87.9 fL (81.0-99.0); Platelet Count 107 10^3/uL (130-400); Red Cell Dist. Width 15.0 % (11.5-14.5)
--- NOTE | 2025-07-04 21:40 | RR ---
A Rapid Response was called on this patient, please see Rapid Response form.
See provider update note for details.
No further CC needs at this time.
[2025-07-04] MEDS: ZOSYN 50 IV (21:53)
[2025-07-05] VITALS (7 sets, daily range): BP systolic 109–148; BP diastolic 69–92; PULSE 118; O2SAT 90; BMI 23.8
[2025-07-05] MEDS: ZOSYN 50 IV (03:41)
[2025-07-05] MEDS: SYNTHROID 50 MCG PO (06:11)
[2025-07-05 07:45] LABS: APTT 36.2 Sec (23.4-35.0)
[2025-07-05 07:49] LABS: Hematocrit 30.7 % (37.0-47.0); Hemoglobin 10.0 g/dL (12.0-16.0); Mean Corp Hgb Conc. 32.6 g/dL (33.0-37.0); Mean Corpuscular Volume 90.6 fL (81.0-99.0); Nucleated Red Blood Cells % 0.5 %; Platelet Count 104 10^3/uL (130-400); Red Cell Dist. Width 15.1 % (11.5-14.5)
[2025-07-05] MEDS: TOPROL XL 50 MG PO ×2 (07:54→20:26)
[2025-07-05] MEDS: ROBITUSSIN 200 MG PO (08:02)
[2025-07-05 08:11] LABS: ALT (SGPT) 632 U/L (0-35); AST (SGOT) 587 U/L (14-36); Albumin 3.4 g/dl (3.5-5.0); Alkaline Phosphatase 110 U/L (38-126); Blood Urea Nitrogen 62 mg/dl (7-17); Calcium 8.3 mg/dl (8.4-10.2); Carbon Dioxide 25 mmol/L (22-30); Chloride 105 mmol/L (98-107); Estimated Creatinine Clearance 22 ml/min; Glucose 89 mg/dl (70-99); Potassium 3.8 mmol/L (3.5-5.1); Sodium 134 mmol/L (135-145); Total Protein 5.5 g/dl (6.3-8.2); eGFR 25.41
--- NOTE | 2025-07-05 09:06 | W.PN.HOSP.TC ---
Today's Communication/Plan
-
IV Lasix 40 mg today
Discontinue antibiotics
Monitor renal function
Assessment / Plan
Assessment / Plan
#Anuric YELENA
#Hyperkalemia
-Suspect ischemic ATN in the context of circulatory shock as above; now producing urine
-Upon arrival creatinine was near 1.2 though has up trended steadily to 2.8 on most recent lab draw
-Home irbesartan was held upon arrival; nephrology consulted and recommended IV fluids
-Status post IV fluids with signs of renal recovery, now polyuric as predicted with ATN
-Will continue with IV Lasix as tolerated, discontinued IV fluids
-Trend BMP and urine output closely
#Acute hypoxemic respiratory insufficiency
#Decompensated HFpEF with RV dilation
#AF with RVR
-Likely degree of iatrogenic volume overload with IV fluids received here due to YELENA and ATN; BNP >5000
-Has been stable on 2 L of O2, denies any symptoms at rest though developed RVR yesterday and has SOB
-Renal function now improving, responded well to a dose of IV Lasix overnight with improved creatinine today
-Will discontinue antibiotics as no fevers or leukocytosis, rectal temperature less reliable
-Continue with IV Lasix, trend I's and O's and daily weights
-Wean O2 for SpO2 goal >90%
#Circulatory shock
#Bradycardia
#Shock liver
-Suspected prolonged vasovagal state from cardiac ablation and propafenone effect
-Was started on Levophed for hemodynamic support, BP improved though HR still in 50s
-Was weaned off of vasopressors with IV fluids, systemic illumination of propafenone
-At this time maintaining hemodynamic stability without pressors
-Resolved, continue to trend LFTs towards normal
-Follow-up RUQ US for completeness
#Toxic metabolic encephalopathy
#Hospital delirium
-Suspect this is associated with propafenone, YELENA
-Undergoing washout of propafenone with IV fluids as above
-Mental status improved though intermittently owning
-Delirium precautions
#Elevated troponin
-Nonischemic myocardial injury secondary to ablation outpatient
-No chest pain, dynamic ECG change or other sign of ACS
-Troponin trend not consistent with ACS
#Paroxysmal AF s/p PVI
-Home medications include metoprolol succinate and Eliquis
-Eliquis was transition to heparin drip due to renal insufficiency
-Will resume Eliquis once back to baseline renal function
-Continue on telemetry
#COPD
#GEETHA not on CPAP
#Pulmonary hypertension
-No O2 requirements at baseline, does not wear CPAP nightly
-Likely group 3 pulmonary hypertension from intrinsic lung disease
-No signs of COPD flare at this time; not currently on maintenance therapy
-Monitor clinically, consider LABA/LAMA at discharge for maintenance therapy
#Hypothyroidism
-Unclear etiology, possibly Blanco's
-No signs of abnormal thyroid function at this time
-Continue home levothyroxine dose
#HFpEF
-Per documentation, home meds include Lasix 40 mg
-Home meds include ARB; no SGLT2i or MRA
-Appears euvolemic at this time
-Trend I's and O's + weights
#Dyslipidemia
-No known ASCVD history
-Home regimen includes moderate intensity atorvastatin
Diet: Potassium restricted diet
Thromboprophylaxis: Heparin drip in place of home Eliquis
CODE STATUS: Full code
Disposition: PT recommending home PT versus SNF
Anticipated Discharge: > 48 hours
Subjective/Interval History
-
Date of Service: July 05, 2025
Seen and examined at the bedside. Overnight received IV Lasix due to wet cough and signs of volume overload on chest x-ray. AFVSS on 2 L O2 this morning
Kidney function improving with creatinine down to 2.0, patient states she is passing a lot of urine volume. Net negative only 18 mL though 2400 mL output in last 24 hours. LFTs downtrending
Patient denies any new complaints today, states she feels fairly well and does not have shortness of breath at rest
Objective Data
-
Labs:
Laboratory Results
07/04/25 07/04/25 07/04/25
21:08 22:00 22:09
WBC 7.0
Hgb 10.0 L
Hct 29.1 L
Plt Count 107 L D
APTT Cancelled Cancelled Cancelled
Sodium
Potassium
Chloride
Carbon Dioxide
BUN
Creatinine
Glucose
Calcium
Total Bilirubin
AST
ALT
Alkaline Phosphatase
07/05/25 07/05/25
06:53 12:55
WBC 6.0
Hgb 10.0 L
Hct 30.7 L
Plt Count 104 L
APTT 36.2 H Pending
Sodium 134 L
Potassium 3.8
Chloride 105
Carbon Dioxide 25
BUN 62 H
Creatinine 2.0 H
Glucose 89
Calcium 8.3 L
Total Bilirubin 2.0 H
AST 587 H*
ALT 632 H*
Alkaline Phosphatase 110
Vital Signs:
Vital Signs
Temp Pulse Resp BP Pulse Ox
98.1 F 115 18 148/82 95
07/05/25 07:44 07/05/25 07:54 07/05/25 07:44 07/05/25 07:54 07/05/25 07:44
I&O
07/04/25 07/05/25 07/06/25
06:59 06:59 06:59
Intake Total 0 / 2080 2493 / 2493
Output Total 375 / 375 2475 / 2475
Balance 1705 / 1705
Review of Systems
-
History Source: Patient
All other systems: Reviewed and negative
Physical Exam
-
General: Well Developed, No Apparent Distress and Appears Chronically Ill
HEENT: Normocephalic, Atraumatic, Moist Mucous Membranes and Anicteric
Respiratory: Non Labored Respirations and Decreased Breath Sounds; Negative Wheezes, Crackles or Accessory Resp Muscle Use
Cardiac: Regular Rhythm and S1/S2; Negative Murmur, Rub or Gallop
GI: Soft, Nontender, Nondistended and Normal Bowel Sounds
Musculoskeletal: No Clubbing, No Cyanosis and Other (1+ edema)
Skin: Warm, Dry and Rash
Neuro: AO x 3, Nonfocal/Grossly Intact and Central Nerve's Intact
Psych: Calm
Data Reviewed
-
Labs: Labs Reviewed by me, Discussed with Physician (Drum Sander Offbearer) and Discussed with Patient
--- NOTE | 2025-07-05 09:24 | W.PN.NEPH.PH ---
Today's Communication / Plan
-
BMP
Assessment/Plan
-
IMPRESSION:
Bradycardic shock
lactic acidosis
Worsening YELENA with anuria
Hyperkalemia
Acute encephalopathy
Syncope with facial trauma
Status post PVI for afib
Shock liver
PLAN:
Follow BMP
Follow LFTs
Status post rapid response A-flutter mild hypotension shortness of breath= rate controlled/Lasix given 40 mg last night
Chest x-ray independently reviewed possible pneumonia right lower with fever.
Renal function improving and though may see increase with RVR.
IV fluids discontinued
All correspondence noted
-
-
Date of Service: July 05, 2025
CC / HPI / ROS
-
Chief Complaint:
YELENA
History of Present Illness:
YELENA/Cr up to 3.3> improving
Status post flutter with RVR
Review of Systems:
no CP/SOB
Previous hallucinations
Labs
-
Labs:
WBC 6.0 10^3/uL (4.8-10.8) 07/05/25 06:53
RBC 3.39 10^6/uL (4.20-5.40) L 07/05/25 06:53
Hgb 10.0 g/dL (12.0-16.0) L 07/05/25 06:53
Hct 30.7 % (37.0-47.0) L 07/05/25 06:53
Plt Count 104 10^3/uL (130-400) L 07/05/25 06:53
Sodium 134 mmol/L (135-145) L 07/05/25 06:53
Potassium 3.8 mmol/L (3.5-5.1) 07/05/25 06:53
Chloride 105 mmol/L (98-107) 07/05/25 06:53
Carbon Dioxide 25 mmol/L (22-30) 07/05/25 06:53
BUN 62 mg/dl (7-17) H 07/05/25 06:53
Creatinine 2.0 mg/dL (0.6-1.0) H 07/05/25 06:53
eGFR 25.41 07/05/25 06:53
Glucose 89 mg/dl (70-99) 07/05/25 06:53
Calcium 8.3 mg/dl (8.4-10.2) L 07/05/25 06:53
Phosphorus 6.4 mg/dl (2.5-4.5) H 07/03/25 14:00
Xhc-X-Ayhvwzwuaum Pept 5470 pg/ml 07/04/25 11:24
Albumin 3.4 g/dl (3.5-5.0) L 07/05/25 06:53
Physical Exam
-
Vital Signs:
Vital Signs
Temp Pulse Resp BP Pulse Ox
98.1 F 115 18 148/82 95
07/05/25 07:44 07/05/25 07:54 07/05/25 07:44 07/05/25 07:54 07/05/25 07:44
Cardiovascular:: Regular rate and rhythm
Respiratory:: Bilateral: Coarse
Lung Excursion:: Normal
Abdomen:: Nontender and Soft
Bowel Sounds:: Normal
Extremity Edema:: None: Bilateral:
[2025-07-05] MEDS: LASIX 40 MG IV (12:04)
[2025-07-05 12:53] LABS: APTT 118.2 Sec (23.4-35.0)
--- NOTE | 2025-07-05 12:58 | W.PN.GI.CBS2 ---
Today's Communication / Plan
-
trend LFT
follow up US doppler
Assessment / Plan
-
74-year-old female with past medical history of paroxysmal A-fib, status post PVI 2022 with repeat PVI 07/01/2025, pulmonary hypertension, COPD, hypertension, hyperlipidemia, HFpEF, MR, osteopenia, obstructive sleep apnea, former smoker,
hypothyroidism who presents to the emergency room with syncope after having PVI ablation earlier that day. History obtained from the chart and nursing as patient unable to give history. After the procedure she had episodes of A-fib and elevated
filling pressures. She was given propafenone 450 mg along with home Toprol of 50 mg with episcopal of sinus rhythm. There was concern of volume overload and she was provided 40 mg of IV Lasix. The patient had an episode of syncope at home. She
fell from the couch and hit the bridge of her nose. EMS was called. She was given multiple doses of atropine for symptomatic bradycardia. She also required doses of atropine in the ER. Also found to be hyperkalemic and was given Lasix for this.
Her hyperkalemia was treated with Lasix, calcium gluconate, insulin dextrose and Lokelma. The patient had hypotension with 70s over 40s and was placed on Levophed. She was noted to be in first-degree AV block. She had a troponin of 10. She had
altered mental status and had CT of the head x 2. We are asked to evaluate for elevated LFTs.
Prior LFTs on occasion she will have mild elevation of AST and ALT in the 40 range. Prior review of imaging studies of the liver always showed the liver to be normal. Patient may drink a couple glasses of wine a night. RN spoke to son who states
that she may go couple days without drinking alcohol. LFTs January 2025 demonstrate completely normal LFTs with total bilirubin 0.8, AST at 36, ALT 35 and alk phos of 104. LFTs 06/21/2025 showed total bilirubin 1.9, AST 40, ALT 32, alk phos 112. On
presentation total bilirubin 5.6, AST 290, ALT 150 alk phos of 114, CK1 74, troponin 10.7. Repeat LFTs currently total bilirubin 5.5, direct bilirubin 2.2, AST 605, ALT 322, alk phos 108, ammonia less than 9, troponin 9.99 with repeat troponin 9.5.
She did have a lactic acid of 4.2 now decreasing to 3.0. WBC 10.1, hemoglobin 11.6, hematocrit 35.3, platelets 152, PT 23.5, INR 2.04, sodium 136, potassium 6.1 (down from 6.8), CO2 19, BUN 40 (increased from 36), creatinine 1.8 (up from 1.6),
glucose 200. Alcohol not detected. Acetaminophen level 24. Ultrasound of the abdomen shows small volume ascites within the abdomen. Contrasted/thickened gallbladder with no stones or sludge appreciated. The wall thickening is nonspecific
possibly active in nature and related to patient's ascites versus underdistention. Liver 15.8 cm. Homogeneous echo texture with no discrete lesions. Bile duct measures 2 mm. No intrahepatic ductal dilatation. Will ask radiology to comment on
Doppler images.
Impression
Hx of paroxysmal A-fib status post PVI ( 07/01 )/ syncope /bradycardia/cardiogenic shock
Elevated LFT-likely secondary to shock liver
YELENA
Lactic acidosis
Metabolic encephalopathy
Nasal fractures
plan
This a.m. labs- AST 587/ALT 632 / t.bili 2- trending down and stable
Hemodynamic stability as per medical team/cardiology
Continue to monitor LFT
hepatitis panel - negative
US Abdomen-normal liver. Small volume ascites. Thickened gallbladder with no stones or sludge. added Doppler study to check -vasculature for completion - results pending
No other recommendations at this point . will s/o.
Total Time Spent with Patient (in minutes): 35
Subjective
Subjective
Date of Service: July 05, 2025
No GI complaints
Objective
Data Reviewed
Laboratory Data:
Laboratory Results
07/05/25 06:53
07/05/25 06:53
Laboratory Results
PT 23.5 Sec (11.4-14.6) H 07/02/25 02:05
INR 2.04 07/02/25 02:05
APTT 118.2 Sec (23.4-35.0) H 07/05/25 12:35
Phosphorus 6.4 mg/dl (2.5-4.5) H 07/03/25 14:00
Magnesium 2.0 mg/dl (1.6-2.3) 07/03/25 14:00
Total Bilirubin 2.0 mg/dl (0.2-1.3) H 07/05/25 06:53
AST 587 U/L (14-36) H* 07/05/25 06:53
ALT 632 U/L (0-35) H* 07/05/25 06:53
Alkaline Phosphatase 110 U/L (38-126) 07/05/25 06:53
Vital Signs and I&O:
Vital Signs
Temp Pulse Resp BP Pulse Ox
97.5 F 119 18 135/92 100
07/05/25 12:01 07/05/25 12:01 07/05/25 12:01 07/05/25 12:04 07/05/25 12:01
I&O
07/04/25 07/05/25 07/06/25
06:59 06:59 06:59
Intake Total 2080 / 2080 2493 / 2493
Output Total 375 / 375 2475 / 2475
Balance 1705 / 1705
Physical Exam
Physical Exam
GI: Soft, Non Distended and Non Tender
[2025-07-05] MEDS: PACERONE 200 MG PO ×2 (13:47→20:26)
[2025-07-05] MEDS: ANESTHETIC LOZENGE 1 LOZENGE PO (13:48)
--- NOTE | 2025-07-05 15:25 | PN.CDI ---
CDI
- -
CDI:
Physician Documentation Request
Admit Date: 07/01/25 23:35
Dear Doctor Jesús,
Please review the following and provide your response in the progress notes.
Clinical Indicators:
Pt admitted with Bradycardia/ Cardiogenic shock
Update 07/03,' Notified again that patient got lightheaded and SOB after removing her IV dressing with blood. O2 was increased to 6L, pt sPO2 87-90%.....Patient's O2 now down to 4L, sPO2 89-90%. ....'
Update note 07/04, ' -Reported by the nursing staff that the patient is wheezing. afebrile, SPO2 92% on 3 L of O2...-Duo neb and chest x-ray ordered ...'
Progress note 07/05, '#Acute hypoxemic respiratory insufficiency...has SOB...-Wean O2 for SpO2 goal >90%...'
Patient care note 07/15 @ 0317, ' Pt is on 4-6 L O2, dyspneic w/ exertion Diminished and wheezing. SaO2 92-96%..'
Selected Entries
07/01/25
22:40 07/02/25
00:40 07/02/25
02:00
SaO2 75 88
Nasal Cannula flow liters per minute 4
07/02/25
02:07 07/02/25
02:07 07/02/25
02:45
SaO2 89
Nasal Cannula flow liters per minute 5 5
07/02/25
19:45 07/03/25
01:40 07/03/25
11:24
Nasal Cannula flow liters per minute 4 6 3
07/03/25
21:37 07/04/25
08:20
Nasal Cannula flow liters per minute 6 4
Clarify which of the following accurately represents the patient's respiratory status:
Acute Hypoxic respiratory failure
Hypoxia-only
Other ( please specify)
Additional information for Respiratory Failure:
Recognized criteria for Respiratory Failure (Source: Maryann Elkins. 2018August 12.
Documentation tips: Acute Respiratory Failure, The Hospitalist.)
ABGs: (1 or more) Symptoms Please indicate type if known
1. p)2 <60 or RA SPO2 <91% on RA 1. Tachypnea, SOB, dyspnea Hypoxic
2. pCO2 >45 and pH <7.35 2. Use of accessory muscles Hypercapnic
3. pO2 decrease of pCO2 increase by 3. Pallor or cyanosis Hypoxic and Hypercapnic
10 mmHg from baseline if known 4. Anxiety or restlessness Unable to determine
4. P/F Ratio (pO2/FiO2)less than 300 5. Unable to speak in full sentences
Use of terms such as suspected, likely, concern for, or probable (associated with a specific diagnosis that is being evaluated, monitored, or treated as if it exists) are acceptable and can be coded in the inpatient setting, when documented at the
time of discharge.
Thank you,
Shirley Rodríguez RN
CDI Specialist
[employer]
Please use your independent medical judgment in providing your response.
--- NOTE | 2025-07-05 16:23 | CM ---
Reviewed the chart notes. Recommendation from PT is home with PT vs SNF. CM continues to be available to patient/family and is monitoring medical plan for needs at discharge.
Plan: Discharge plans will depend on the patient's progress.
--- NOTE | 2025-07-05 16:55 | W.PN.CARDCBS ---
Addendum entered and electronically signed by Ej Plata MD 07/05/25 18:10:
74-year-old woman who underwent PFA on July 01, received propafenone for post procedure atrial tachycardia, discharged and readmitted with syncope and YELENA, baseline creatinine 1.1, peak 3.3, today 2.0 Hepatic injury, AST peak 844, ALT 627,
potassium 6.8, initial lactate > 4
PMH: PAF, PVI in 2022, cardioversion January 2025, HFpEF, pulmonary hypertension, COPD, hypertension, hyperlipidemia and mild to moderate MR
Current medications: IV heparin, levothyroxine 50 mcg daily, metoprolol ER 50 mg daily
139/92, pulse 119, respiratory rate 18, afebrile, sats 100%, she offers no complaints sister at bedside, lungs are clear regular rate and rhythm, JVD okay not much edema
Hemoglobin 10, BUN and creatinine are 62 and 2.0, creatinine had been 3.3, Potassium is 3.8, AST is 587, had been 741, ALT is 632, stable
Echo 07/02/25: EF 50%, moderate MR, severe TR, dilated RV, PASP 28 mmHg
Impression:
Syncope post PVI 07/01/2025
Recurrent atrial fibrillation post PVI
Acute kidney injury, now resolving
Acute hepatic injury, now resolving
History of PVI 2022
HFpEF, improved
COPD
Alcohol use, 1-2 glasses/day
Hypertension
Hypercholesterolemia
Moderate mitral regurgitation
Plan:
She is substantially improved following a syncopal episode at home resulting in facial trauma, YELENA, and hepatic injury. She seems to be improving on all fronts, but now in atrial fibrillation with a relatively rapid ventricular response. Will
double metoprolol ER to 50 mg twice daily and add amiodarone 200 mg twice daily.
LFTs are dramatically improving, so amiodarone likely okay.
Suspect renal function will continue to improve as well.
Resume Eliquis, 5 mg twice daily. Stop heparin.
Will proceed with cardioversion in AM.
Original Note:
Today's Communication / Plan
-
New to amiodarone
Changing from heparin to Eliquis tonight
CV in a.m.
Impression / Plan
-
PCP: Dr. Rocha
Maintainer Operator: Dr. Martine Mendoza
Streetcar Repairer Helper: Jaime Mendoza
Impression:
Presented 07/01/2025 with syncope, bradycardia, hypotension
Syncope resulting in nasal fractures
Symptomatic bradycardia, possibly related to propafenone pill in pocket dose given 07/01/2025, now asymptomatic
RV dysfunction
Hyperkalemia
YELENA, worsening
Anuric
Abnormal LFTs
Abnormal troponin
Paroxysmal atrial fibrillation
s/p PVI 03/18/2023
s/p CV 02/04/2025
s/p pulsed field PVI plus AF ablation sets X 3 after PVI (LA posterior wall, Inf/floor of the LA posterior wall, Ligament of Tayo) resulting in elimination of the targeted extra PV contributors to atrial fibrillation.
Chronic Eliquis AC
Heart failure with preserved ejection fraction
Pulmonary HTN
COPD
HTN
HLD
Mild-mod MR by echo 11/2024
RAUL 03/12/2023: EF 55-60%, mild MR, moderate to severe TR, estimated PAP 31 mmHg
Echo 11/26/2023: EF 55-60%, moderate MR, moderate to severe TR, estimated PAP 52 mmHg,
Echo 12/01/2024: EF 54%, mild to mod MR, mod TR, estimated PAP 51 mmHg
Echo 07/02/2025: EF 50%, mod MR, sev TR PASP 28 mmHg; dilated RV with RV dysfunction
Plan:
-Presented 07/01/2025 with syncopal episode and found to be bradycardic and hypotensive. Patient had pulsed field PVI ablation earlier that day and had atrial tachycardia following procedure and was given propafenone 450 mg PO x 1 plus Toprol-XL 50
mg PO x 1. She was then discharged home and later had syncopal episode.
-Syncope possibly related to use of pill in pocket propafenone dose and metoprolol. All AV alice blocking agents currently were held, but patient eventually restarted on Toprol XL 50 mg BID, this is an increase from outpatient dose.
-Patient was also started on amiodarone 200 mg BID 07/05/2025.
-Check ECG in a.m., ordered by me
-Plan is for CV on 07/06/2025, patient added to schedule by me on 07/05/2025
-Outpatient dose of Eliquis 5 mg BID was held and patient was bridged with heparin gtt. Resume Eliquis 5 mg BID 07/05/2025 PM
-Outpatient dose of irbesartan 150 mg daily is on hold due to YELENA
-Nephrology is following and patient is receiving doses of Lasix 40 mg IV being ordered as one-time doses. Patient was taking Lasix 20 mg PO daily prior to admission.
-Troponin was 10.7 on admission and trending down thereafter. This was treated as a nonischemic myocardial injury troponin elevation in the setting of ablation
-Elevated LFTs likely due to hypotension. Abdominal ultrasound without acute abnormalities.
-Altered mental status seems to be waxing and waning, resolved. Head CT x 2 unremarkable for stroke or bleed. Continue to follow
[facility] 07/02/2025:
Jessica is a 74 year old female with PMH of paroxysmal atrial fibrillation s/p PVI 2022 with repeat PVI 07/01/2025, pulmonary HTN, COPD, HTN, HLD, heart failure with preserved ejection fraction, and MR who presents to emergency department 07/01/2025
with syncope. Patient had PVI ablation day earlier that day. Postprocedure she was found to have atrial tachycardia with heart elevated heart rates 120-150's bpm and was provided propafenone 450 mg along with home Toprol of 50 mg with scientology
of sinus rhythm. There was concern of volume overload and she was provided 40 mg of IV Lasix. Later that afternoon patient later was deemed stable for discharge and went home. Later that evening patient had syncopal episode striking face
resulting in nasal bone fracture. EMS was called and on arrival patient was found to be bradycardic and hypotensive. She was provided several doses of atropine and fluid bolus. On presentation to emergency department she was noted to have YELENA
with creatinine of 1.6 and potassium of 6.8. LFTs elevated at AST 290, ALT 150. Troponin 10.7. EKG on admission showed sinus bradycardia with first-degree AV block, IVCD, QTc 548 ms. She was provided additional episodes of atropine and placed on
Levophed and one dose of IV Lasix. She was provided Lokelma, dextrose and insulin with improvement of potassium to 4.9 however upon repeat labs potassium 6.1. Patient was noted to have altered mental status and underwent head CT x 2 which showed
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 Given elevated LFTs patient underwent abdominal ultrasound which showed small volume of ascites within abdomen and thickened gallbladder with no stones or sludge.
At time of this evaluation patient lying in bed it appears to be somewhat restless but denies being in pain to me. She is oriented to person place and time. Heart rates in 50s to 60s on Levophed 3 mics per kilogram per minute. Per nursing patient
has been an uric and bladder scan did not show any significant urine retention.
Progress Note - Maintainer Operator
Subjective
Date of Service: July 05, 2025
Feels well, no palpitations
Objective
Labs:
07/05/25 06:53
07/05/25 06:53
Labs
Hgb 10.0 g/dL (12.0-16.0) L 07/05/25 06:53
Hct 30.7 % (37.0-47.0) L 07/05/25 06:53
Plt Count 104 10^3/uL (130-400) L 07/05/25 06:53
PT 23.5 Sec (11.4-14.6) H 07/02/25 02:05
INR 2.04 07/02/25 02:05
APTT 118.2 Sec (23.4-35.0) H 07/05/25 12:35
Sodium 134 mmol/L (135-145) L 07/05/25 06:53
Potassium 3.8 mmol/L (3.5-5.1) 07/05/25 06:53
BUN 62 mg/dl (7-17) H 07/05/25 06:53
Creatinine 2.0 mg/dL (0.6-1.0) H 07/05/25 06:53
Glucose 89 mg/dl (70-99) 07/05/25 06:53
Vital Signs and I&O:
Vital Signs
Temp Pulse Resp BP Pulse Ox
97.7 F 125 18 124/70 94
07/05/25 15:59 07/05/25 15:59 07/05/25 15:59 07/05/25 15:59 07/05/25 15:59
Vital Signs
Temp Pulse Resp BP Pulse Ox
97.7 F 125 18 124/70 94
07/05/25 15:59 07/05/25 15:59 07/05/25 15:59 07/05/25 15:59 07/05/25 15:59
Intake & Output
07/03/25 07/04/25 07/05/25 07/06/25
06:59 06:59 06:59 06:59
Intake Total 3164.6 / 3164.6 2079 2493 / 2493
Output Total 0 / 0 375 / 375 2475 / 2475
Balance 3164.6 / 3164.6 1705 / 1705
Physical Exam
Physical Exam
GEN: NAD
LUNGS: RA. No wheeze
CV: Afib on tele.
[2025-07-05] MEDS: HEPARIN 25000 UNITS/250 ML IV (17:22)
[2025-07-05 18:53] LABS: APTT 112.7 Sec (23.4-35.0)
--- NOTE | 2025-07-05 20:23 | PTCARENOTE ---
Order to discontinue Heparin gtt and start Eliquis tonight. Confirmed with Dante Salas.
[2025-07-05] MEDS: ELIQUIS 5 MG PO (20:26)
[2025-07-06 03:23] VITALS: BP 127/87
[2025-07-06 06:00] VITALS: BMI 22.8
[2025-07-06] MEDS: SYNTHROID 50 MCG PO (06:21)
[2025-07-06 06:45] LABS: Hematocrit 30.8 % (37.0-47.0); Hemoglobin 10.0 g/dL (12.0-16.0); Mean Corp Hgb Conc. 32.5 g/dL (33.0-37.0); Mean Corpuscular Volume 90.3 fL (81.0-99.0); Nucleated Red Blood Cells % 0 %; Platelet Count 119 10^3/uL (130-400); Red Cell Dist. Width 14.9 % (11.5-14.5)
[2025-07-06 06:54] LABS: Blood Urea Nitrogen 43 mg/dl (7-17); Calcium 8.2 mg/dl (8.4-10.2); Carbon Dioxide 29 mmol/L (22-30); Chloride 102 mmol/L (98-107); Estimated Creatinine Clearance 33 ml/min; Glucose 83 mg/dl (70-99); Potassium 3.3 mmol/L (3.5-5.1); Sodium 136 mmol/L (135-145); eGFR 42.62
[2025-07-06 07:40] VITALS: BP 124/72
[2025-07-06] MEDS: TOPROL XL 50 MG PO ×2 (08:13→21:46)
[2025-07-06] MEDS: PACERONE 200 MG PO ×2 (08:13→16:01)
[2025-07-06] MEDS: ELIQUIS 5 MG PO ×2 (08:13→21:36)
--- NOTE | 2025-07-06 09:14 | W.PN.HOSP.TC ---
Today's Communication/Plan
-
Trend renal function
Monitor telemetry following DCCV
Amiodarone load
Transition to oral diuretics in next 24 hours
Resume ARB when renal function back to baseline
Assessment / Plan
Assessment / Plan
#Anuric YELENA
#Hyperkalemia
-Suspect ischemic ATN in the context of circulatory shock as above; now producing urine
-Upon arrival creatinine peak near 3.3 though has now rapidly improved with creatinine back to 1.3
-Home irbesartan was held upon arrival; nephrology consulted and recommended IV fluids
-Status post IV fluids with signs of renal recovery, now polyuric as predicted with ATN
-Will continue with IV Lasix as tolerated, discontinued IV fluids
-Trend BMP and urine output closely
-Avoid nephrotoxins
#Acute hypoxemic respiratory insufficiency
#Decompensated HFpEF with RV dilation
#AF with RVR
-Likely degree of iatrogenic volume overload with IV fluids received here due to YELENA and ATN; BNP >5000
-Clinically improved with IV diuretics and now off of supplemental oxygen, approaching euvolemia
-Underwent DCCV with cardiology today and successful druze of normal sinus rhythm
-Continue with IV diuretics and plan to transition back to oral regimen within 24 hours
-Continue beta-jim, DOAC, amiodarone for atrial fibrillation
-Trend I's and O's and daily weights
-Wean O2 for SpO2 goal >90%
#Circulatory shock
#Bradycardia
#Shock liver
-Suspected prolonged vasovagal state from cardiac ablation and propafenone effect
-Was started on Levophed for hemodynamic support, BP improved though HR still in 50s
-Was weaned off of vasopressors with IV fluids, systemic illumination of propafenone
-At this time maintaining hemodynamic stability without pressors
-Resolved, continue to trend LFTs towards normal
#Hypokalemia
-Secondary to diuresis, potassium 3.3 this morning
-Ordered 80 mEq KCl for today
-Repeat BMP and mag level tomorrow, replete as needed
#Toxic metabolic encephalopathy
#Hospital delirium
-Suspect this is associated with propafenone, YELENA
-Undergoing washout of propafenone with IV fluids as above
-Mental status improved though intermittently sundowning
-Delirium precautions
#Elevated troponin
-Nonischemic myocardial injury secondary to ablation outpatient
-No chest pain, dynamic ECG change or other sign of ACS
-Troponin trend not consistent with ACS
#Paroxysmal AF s/p PVI
-Home medications include metoprolol succinate and Eliquis
-Status post cardioversion on 07/06 with druze of NSR
-Was started on amiodarone 200 mg twice daily on this hospital stay
-Continue on telemetry
#COPD
#GEETHA not on CPAP
#Pulmonary hypertension
-No O2 requirements at baseline, does not wear CPAP nightly
-Likely group 3 pulmonary hypertension from intrinsic lung disease
-No signs of COPD flare at this time; not currently on maintenance therapy
-Monitor clinically, consider LABA/LAMA at discharge for maintenance therapy
#Hypothyroidism
-Unclear etiology, possibly Blanco's
-No signs of abnormal thyroid function at this time
-Continue home levothyroxine dose
#HFpEF
-Per documentation, home meds include Lasix 40 mg
-Home meds include ARB; no SGLT2i or MRA
-Appears euvolemic at this time
-Trend I's and O's + weights
#Dyslipidemia
-No known ASCVD history
-Home regimen includes moderate intensity atorvastatin
Diet: Potassium restricted diet
Thromboprophylaxis: Heparin drip in place of home Eliquis
CODE STATUS: Full code
Disposition: PT recommending home PT versus SNF
Anticipated Discharge: 24 - 48 hours
Subjective/Interval History
-
Date of Service: July 06, 2025
Seen and examined at the bedside. No acute events reported overnight. AFVSS, now in NSR following cardioversion
Renal function continues to improve with creatinine down to 1.3, producing adequate urine volumes.
Patient feels well and otherwise denies any complaints today. Weight downtrending
Objective Data
-
Labs:
Laboratory Results
07/06/25
05:20
WBC 5.8
Hgb 10.0 L
Hct 30.8 L
Plt Count 119 L
Sodium 136
Potassium 3.3 L
Chloride 102
Carbon Dioxide 29
BUN 43 H
Creatinine 1.3 H
Glucose 83
Calcium 8.2 L
Vital Signs:
Vital Signs
Temp Pulse Resp BP Pulse Ox
97.9 F 100 18 124/72 97
07/06/25 07:40 07/06/25 08:13 07/06/25 07:40 07/06/25 08:13 07/06/25 07:40
I&O
07/05/25 07/06/25 07/07/25
06:59 06:59 06:59
Intake Total 2493 / 2493 1552 / 1552
Output Total 2475 / 2475 800 / 800
Balance 752 / 752
Review of Systems
-
History Source: Patient
All other systems: Reviewed and negative
Physical Exam
-
General: Well Developed, No Apparent Distress and Appears Chronically Ill
HEENT: Normocephalic, Atraumatic, Moist Mucous Membranes and Anicteric
Respiratory: Clear to Auscultation and Non Labored Respirations; Negative Accessory Resp Muscle Use
Cardiac: Regular Rhythm and S1/S2; Negative Murmur, Rub, Gallop or Tachycardic
GI: Soft, Nontender, Nondistended and Normal Bowel Sounds
Musculoskeletal: No Clubbing, No Cyanosis and No Edema
Skin: Warm and Dry; Negative Rash
Neuro: AO x 3, Nonfocal/Grossly Intact and Central Nerve's Intact
Psych: Calm
Data Reviewed
-
Labs: Labs Reviewed by me and Discussed with Patient
--- NOTE | 2025-07-06 09:24 | W.PN.NEPH.PH ---
Today's Communication / Plan
-
AM labs
Assessment/Plan
-
IMPRESSION:
Bradycardic shock
lactic acidosis
Worsening YELENA with anuria
Hyperkalemia
Acute encephalopathy
Syncope with facial trauma
Status post PVI for afib
Shock liver
PLAN:
Follow BMP
Follow LFTs
Significant improvement creatinine down to 1.3 approaching baseline
Post cardioversion unsuccessful 07/06= discussed with the EP
Although her weights are up from admission she presented volume contracted
She is on Lasix 20 mg outpatient. Can be started tomorrow
-
-
Date of Service: July 06, 2025
CC / HPI / ROS
-
Chief Complaint:
YELENA
History of Present Illness:
YELENA/Cr up to 3.3> improving
Status post flutter with RVR
Review of Systems:
no CP/SOB
Labs
-
Labs:
WBC 5.8 10^3/uL (4.8-10.8) 07/06/25 05:20
RBC 3.41 10^6/uL (4.20-5.40) L 07/06/25 05:20
Hgb 10.0 g/dL (12.0-16.0) L 07/06/25 05:20
Hct 30.8 % (37.0-47.0) L 07/06/25 05:20
Plt Count 119 10^3/uL (130-400) L 07/06/25 05:20
Sodium 136 mmol/L (135-145) 07/06/25 05:20
Potassium 3.3 mmol/L (3.5-5.1) L 07/06/25 05:20
Chloride 102 mmol/L (98-107) 07/06/25 05:20
Carbon Dioxide 29 mmol/L (22-30) 07/06/25 05:20
BUN 43 mg/dl (7-17) H 07/06/25 05:20
Creatinine 1.3 mg/dL (0.6-1.0) H 07/06/25 05:20
eGFR 42.62 07/06/25 05:20
Glucose 83 mg/dl (70-99) 07/06/25 05:20
Calcium 8.2 mg/dl (8.4-10.2) L 07/06/25 05:20
Phosphorus 6.4 mg/dl (2.5-4.5) H 07/03/25 14:00
Gyt-W-Buszmgsoyqg Pept 5470 pg/ml 07/04/25 11:24
Albumin 3.4 g/dl (3.5-5.0) L 07/05/25 06:53
Physical Exam
-
Vital Signs:
Vital Signs
Temp Pulse Resp BP Pulse Ox
97.9 F 100 18 124/72 97
07/06/25 07:40 07/06/25 08:13 07/06/25 07:40 07/06/25 08:13 07/06/25 07:40
Cardiovascular:: Regular rate and rhythm
Respiratory:: Bilateral: Coarse
Lung Excursion:: Normal
Abdomen:: Nontender and Soft
Bowel Sounds:: Normal
Extremity Edema:: +1: Bilateral:
[2025-07-06 11:53] VITALS: BP 145/86
--- NOTE | 2025-07-06 12:29 | W.PN.CARDCBS ---
Addendum entered and electronically signed by Cheo Vasquez MD 07/06/25 16:01:
Patient seen and examined
Agree with PERLA Tello's note and assessment
exam:
heent ncat
jvp 6
cor irregularly irregular
lungs ctab
abd soft nt nd
no ext edema
aao x 3
non focal neurologically
PCP: Dr. Rocha
Soccer Player: Dr. Martine Mendoza
Rubber Grinder: Jaime Mendoza
Impression:
Presented 07/01/2025 with syncope, bradycardia, hypotension
Syncope resulting in nasal fractures
Atrial tachycardia following pulsed field PVI 07/01/2025
Symptomatic bradycardia, possibly related to propafenone pill in pocket dose given 07/01/2025, now asymptomatic
RV dysfunction
Hyperkalemia
YELENA, worsening
Anuric
Abnormal LFTs
Abnormal troponin
Paroxysmal atrial fibrillation
s/p PVI 03/18/2023
s/p CV 02/04/2025
s/p pulsed field PVI plus AF ablation sets X 3 after PVI (LA posterior wall, Inf/floor of the LA posterior wall, Ligament of Tayo) resulting in elimination of the targeted extra PV contributors to atrial fibrillation. Had atrial tachycardia
postprocedureChronic Eliquis AC
Heart failure with preserved ejection fraction
Pulmonary HTN
COPD
HTN
HLD
Mild-mod MR by echo 11/2024
RAUL 03/12/2023: EF 55-60%, mild MR, moderate to severe TR, estimated PAP 31 mmHg
Echo 11/26/2023: EF 55-60%, moderate MR, moderate to severe TR, estimated PAP 52 mmHg,
Echo 12/01/2024: EF 54%, mild to mod MR, mod TR, estimated PAP 51 mmHg
Echo 07/02/2025: EF 50%, mod MR, sev TR PASP 28 mmHg; dilated RV with RV dysfunction
Plan:
-Presented 07/01/2025 with syncopal episode and found to be bradycardic and hypotensive. Patient had pulsed field PVI ablation earlier that day and had atrial tachycardia following procedure and was given propafenone 450 mg PO x 1 plus Toprol-XL 50
mg PO x 1. She was then discharged home and later had syncopal episode.
-Syncope possibly related to use of pill in pocket propafenone dose and metoprolol. All AV alice blocking agents were held, but patient eventually restarted on Toprol XL 50 mg BID, this is an increase from outpatient dose.
-Patient was also started on amiodarone 200 mg BID 07/05/2025.
-cardioversion attempted 07/06/2025, received 3 shocks, 1 at 200 J, 1 at 300 J, 1 at 360 J with sinus rhythm initially restored but then went back into afib
-telem reviewed: Afib 80s-90s
-will increase Amio to TID dosing.
-Outpatient dose of Eliquis 5 mg BID was held and patient was bridged with heparin gtt. Resume Eliquis 5 mg BID 07/05/2025 PM
-she appears to be nearing baseline with LFT's and renal function returning towards baseline. could consider dc on amiodarone and repeat CV in 2-3 weeks. as an adjunct could consider pacemaker placement prior to DC with cardioversion as outpatient
or as inpatient prior to discharge. happy to perform this . Dr. Mendoza can finalize plan tomorrow am we will hold am meal.
-Outpatient dose of irbesartan 150 mg daily is on hold due to YELENA
-Nephrology is following and patient is receiving doses of Lasix 40 mg IV being ordered as one-time doses. Patient was taking Lasix 20 mg PO daily prior to admission.
-K 3.3. Potassium repletion has been ordered by hospitalist
-Troponin was 10.7 on admission and trending down thereafter. This was treated as a nonischemic myocardial injury troponin elevation in the setting of ablation
-Elevated LFTs thought to be due to hypotension. Abdominal ultrasound without acute abnormalities. Would repeat LFTs in a.m.
-Altered mental status seems to be waxing and waning, resolved. Head CT x 2 unremarkable for stroke or bleed. Continue to follow
-discussed with daughter and nursing
Addendum entered and electronically signed by PERLA Hannon 07/06/25 15:01:
increased Amio to 200 mg tid
Original Note:
Today's Communication / Plan
-
uptitrate Amio
repeat LFTs in am
Impression / Plan
-
PCP: Dr. Rocha
Soccer Player: Dr. Martine Mendoza
Rubber Grinder: Jaime Mendoza
Impression:
Presented 07/01/2025 with syncope, bradycardia, hypotension
Syncope resulting in nasal fractures
Atrial tachycardia following pulsed field PVI 07/01/2025
Symptomatic bradycardia, possibly related to propafenone pill in pocket dose given 07/01/2025, now asymptomatic
RV dysfunction
Hyperkalemia
YELENA, worsening
Anuric
Abnormal LFTs
Abnormal troponin
Paroxysmal atrial fibrillation
s/p PVI 03/18/2023
s/p CV 02/04/2025
s/p pulsed field PVI plus AF ablation sets X 3 after PVI (LA posterior wall, Inf/floor of the LA posterior wall, Ligament of Tayo) resulting in elimination of the targeted extra PV contributors to atrial fibrillation. Had atrial tachycardia
postprocedure
Chronic Eliquis AC
Heart failure with preserved ejection fraction
Pulmonary HTN
COPD
HTN
HLD
Mild-mod MR by echo 11/2024
RAUL 03/12/2023: EF 55-60%, mild MR, moderate to severe TR, estimated PAP 31 mmHg
Echo 11/26/2023: EF 55-60%, moderate MR, moderate to severe TR, estimated PAP 52 mmHg,
Echo 12/01/2024: EF 54%, mild to mod MR, mod TR, estimated PAP 51 mmHg
Echo 07/02/2025: EF 50%, mod MR, sev TR PASP 28 mmHg; dilated RV with RV dysfunction
Plan:
-Presented 07/01/2025 with syncopal episode and found to be bradycardic and hypotensive. Patient had pulsed field PVI ablation earlier that day and had atrial tachycardia following procedure and was given propafenone 450 mg PO x 1 plus Toprol-XL 50
mg PO x 1. She was then discharged home and later had syncopal episode.
-Syncope possibly related to use of pill in pocket propafenone dose and metoprolol. All AV alice blocking agents were held, but patient eventually restarted on Toprol XL 50 mg BID, this is an increase from outpatient dose.
-Patient was also started on amiodarone 200 mg BID 07/05/2025.
-cardioversion attempted 07/06/2025, received 3 shocks, 1 at 200 J, 1 at 300 J, 1 at 360 J with sinus rhythm initially restored but then went back into afib
-telem reviewed: Afib 80s-90s
-will increase Amio to TID dosing.
-Outpatient dose of Eliquis 5 mg BID was held and patient was bridged with heparin gtt. Resume Eliquis 5 mg BID 07/05/2025 PM
-Outpatient dose of irbesartan 150 mg daily is on hold due to YELENA
-Nephrology is following and patient is receiving doses of Lasix 40 mg IV being ordered as one-time doses. Patient was taking Lasix 20 mg PO daily prior to admission.
-K 3.3. Potassium repletion has been ordered by hospitalist
-Troponin was 10.7 on admission and trending down thereafter. This was treated as a nonischemic myocardial injury troponin elevation in the setting of ablation
-Elevated LFTs thought to be due to hypotension. Abdominal ultrasound without acute abnormalities. Would repeat LFTs in a.m.
-Altered mental status seems to be waxing and waning, resolved. Head CT x 2 unremarkable for stroke or bleed. Continue to follow
-discussed with daughter and nursing
HPI 07/02/2025:
Jessica is a 74 year old female with PMH of paroxysmal atrial fibrillation s/p PVI 2022 with repeat PVI 07/01/2025, pulmonary HTN, COPD, HTN, HLD, heart failure with preserved ejection fraction, and MR who presents to emergency department 07/01/2025
with syncope. Patient had PVI ablation day earlier that day. Postprocedure she was found to have atrial tachycardia with heart elevated heart rates 120-150's bpm and was provided propafenone 450 mg along with home Toprol of 50 mg with taoism
of sinus rhythm. There was concern of volume overload and she was provided 40 mg of IV Lasix. Later that afternoon patient later was deemed stable for discharge and went home. Later that evening patient had syncopal episode striking face
resulting in nasal bone fracture. EMS was called and on arrival patient was found to be bradycardic and hypotensive. She was provided several doses of atropine and fluid bolus. On presentation to emergency department she was noted to have YELENA
with creatinine of 1.6 and potassium of 6.8. LFTs elevated at AST 290, ALT 150. Troponin 10.7. EKG on admission showed sinus bradycardia with first-degree AV block, IVCD, QTc 548 ms. She was provided additional episodes of atropine and placed on
Levophed and one dose of IV Lasix. She was provided Lokelma, dextrose and insulin with improvement of potassium to 4.9 however upon repeat labs potassium 6.1. Patient was noted to have altered mental status and underwent head CT x 2 which showed
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 Given elevated LFTs patient underwent abdominal ultrasound which showed small volume of ascites within abdomen and thickened gallbladder with no stones or sludge.
At time of this evaluation patient lying in bed it appears to be somewhat restless but denies being in pain to me. She is oriented to person place and time. Heart rates in 50s to 60s on Levophed 3 mics per kilogram per minute. Per nursing patient
has been an uric and bladder scan did not show any significant urine retention.
Progress Note - Soccer Player
Subjective
Date of Service: July 06, 2025
initially converted to NSR after CV but went back into afib
denies SOB, CP, palps, lightheadedness
Objective
Labs:
07/06/25 05:20
07/06/25 05:20
Labs
Hgb 10.0 g/dL (12.0-16.0) L 07/06/25 05:20
Hct 30.8 % (37.0-47.0) L 07/06/25 05:20
Plt Count 119 10^3/uL (130-400) L 07/06/25 05:20
PT 23.5 Sec (11.4-14.6) H 07/02/25 02:05
INR 2.04 07/02/25 02:05
APTT 112.7 Sec (23.4-35.0) H 07/05/25 18:33
Sodium 136 mmol/L (135-145) 07/06/25 05:20
Potassium 3.3 mmol/L (3.5-5.1) L 07/06/25 05:20
BUN 43 mg/dl (7-17) H 07/06/25 05:20
Creatinine 1.3 mg/dL (0.6-1.0) H 07/06/25 05:20
Glucose 83 mg/dl (70-99) 07/06/25 05:20
Vital Signs and I&O:
Vital Signs
Temp Pulse Resp BP Pulse Ox
98.1 F 90 18 145/86 97
07/06/25 11:53 07/06/25 11:53 07/06/25 11:53 07/06/25 11:53 07/06/25 11:53
Vital Signs
Temp Pulse Resp BP Pulse Ox
98.1 F 90 18 145/86 97
07/06/25 11:53 07/06/25 11:53 07/06/25 11:53 07/06/25 11:53 07/06/25 11:53
Intake & Output
07/04/25 07/05/25 07/06/2525
06:59 06:59 06:59 06:59
Intake Total 2079 / 2079 2493 / 2493 1552 / 1552
Output Total 375 / 375 2475 / 2475 800 / 800
Balance 1705 / 1705 752 / 752
Physical Exam
Physical Exam
GEN: No distress, awake, Ox3
HEENT: supple, anicteric, mmm
LUNGS: CTA, no wheezes/rales
CV: irreg, irreg no murmur
ABD: soft, BS+, NT/ND
EXT: trace edema
NEURO: Gross non-focal
SKIN: No rash
[2025-07-06] MEDS: KCL 40 MEQ PO (13:46)
--- NOTE | 2025-07-06 14:44 | CM ---
Reviewed the chart notes and spoke with the patient at the bedside. Patient had a cardioversion today, which unfortunately per patient was not successful. Patient interested in VN services. Patient selected VN. Referral sent in [facility].
continues to be available to patient/family and is monitoring medical plan for needs at discharge.
Plan: Discharge to home with VN services.
[2025-07-06 15:43] VITALS: BP 113/70
[2025-07-06 21:31] VITALS: BP 113/72
[2025-07-06] MEDS: ANESTHETIC LOZENGE 1 LOZENGE PO (22:13)
[2025-07-06] MEDS: ROBITUSSIN 200 MG PO (22:14)
[2025-07-06 23:59] VITALS: BP 130/94
[2025-07-07] VITALS (9 sets, daily range): BP systolic 106–144; BP diastolic 64–96; PULSE 108; O2SAT 93
[2025-07-07] MEDS: PACERONE 200 MG PO ×4 (00:23→22:55)
[2025-07-07 07:26] LABS: Hematocrit 34.3 % (37.0-47.0); Hemoglobin 10.9 g/dL (12.0-16.0); Mean Corp Hgb Conc. 31.8 g/dL (33.0-37.0); Mean Corpuscular Volume 93.2 fL (81.0-99.0); Nucleated Red Blood Cells % 0 %; Platelet Count 141 10^3/uL (130-400); Red Cell Dist. Width 15.6 % (11.5-14.5)
[2025-07-07 07:41] LABS: ALT (SGPT) 490 U/L (0-35); AST (SGOT) 296 U/L (14-36); Blood Urea Nitrogen 25 mg/dl (7-17); Calcium 8.3 mg/dl (8.4-10.2); Carbon Dioxide 27 mmol/L (22-30); Chloride 104 mmol/L (98-107); Estimated Creatinine Clearance 54 ml/min; Glucose 88 mg/dl (70-99); Magnesium 1.4 mg/dl (1.6-2.3); Potassium 3.9 mmol/L (3.5-5.1); Sodium 136 mmol/L (135-145); eGFR > 60.00
[2025-07-07] MEDS: TOPROL XL 50 MG PO ×2 (08:25→20:58)
[2025-07-07] MEDS: SYNTHROID 50 MCG PO (08:25)
--- NOTE | 2025-07-07 08:48 | W.PN.CARDCBS ---
Addendum entered and electronically signed by Jaime Mendoza MD 07/07/25 13:53:
Patient seen, interviewed and examined by me.
Well-appearing, no acute distress
Healing arvin-ocular ecchymoses
Irregular rate and rhythm with normal S1 and S2, no S3 no S4. There is a grade 1/6 apical holosystolic murmur and no rubs. PMI is normally placed.
Lungs are clear to auscultation bilaterally without wheezes rales or rhonchi.
Abdomen soft nontender nondistended with normoactive bowel sounds
Extremities show trace pretibial edema bilaterally no clubbing or cyanosis.
Neurologic exam is grossly nonfocal.
Her yut-io-nwlrfkod event appears to have been precipitated by bradycardia and very likely some duration of asystole. 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 Is possible that antiarrhythmic drug therapy played a role in her
bradycardic event. She has atrial fibrillation with rapid rates and is now on amiodarone. Given sick sinus syndrome and need for antiarrhythmic drug therapy, permanent pacemaker is indicated to prevent symptomatic/severe bradycardia.
I discussed this with her in detail. I discussed permanent pacemaker implantation as well as possible risks of the procedure. She understands and wishes to proceed.
She will be scheduled for implantation of left-sided dual-chamber permanent pacemaker which will then allow safer administration of antiarrhythmic drug therapy which at present is amiodarone.
Once pacemaker is in she can be further loaded with amiodarone and then plan for repeat attempted cardioversion which can be done as an outpatient next week after more amiodarone loading.
Maintain Eliquis 5 mg twice daily for atrial fibrillation related thromboembolic risk reduction.
Otherwise, clinically she is improving with improved renal and liver function.
Original Note:
Today's Communication / Plan
-
PPM today
Impression / Plan
-
PCP: Dr. Hutchison/kemal
Water Service Supervisor: Dr. Martine Mendoza
Anchorer: Jaime Mendoza
Impression:
Presented with syncope, bradycardia, hypotension following PVI and propafenone administration for xfzn-ci-lctbax therapy 07/01/2025
Syncope resulting in nasal fractures 07/01/25
s/p PVI 07/01/25
Newly diagnosed paroxysmal atrial tachycardia following pulsed field PVI, given propafenone 600 mg PO x1 and then discharged to home 07/01/2025
Symptomatic bradycardia, possibly related to propafenone pill in pocket dose given 07/01/2025, now asymptomatic
RV dysfunction
Hyperkalemia
YELENA, worsening
Anuric
Abnormal LFTs
Abnormal troponin
Paroxysmal atrial fibrillation
s/p PVI 03/18/2023
s/p CV 02/04/2025
s/p pulsed field PVI plus AF ablation sets X 3 after PVI (LA posterior wall, Inf/floor of the LA posterior wall, Ligament of Tayo) resulting in elimination of the targeted extra PV contributors to atrial fibrillation. Had atrial tachycardia
postprocedure
Chronic Eliquis AC
Heart failure with preserved ejection fraction
Pulmonary HTN
COPD
HTN
HLD
Mild-mod MR by echo 11/2024
RAUL 03/12/2023: EF 55-60%, mild MR, moderate to severe TR, estimated PAP 31 mmHg
Echo 11/26/2023: EF 55-60%, moderate MR, moderate to severe TR, estimated PAP 52 mmHg,
Echo 12/01/2024: EF 54%, mild to mod MR, mod TR, estimated PAP 51 mmHg
Echo 07/02/2025: EF 50%, mod MR, sev TR PASP 28 mmHg; dilated RV with RV dysfunction
Plan:
-Patient was admitted for elective pulsed field PVI on 07/01/2025 that was successful, but while in PACU was noted to have rapid A. tach. Patient chronically on propafenone 150 mg TID prior to admission. Patient was given pill in pocket dosing of
propafenone 600 mg PO x 1 in PACU and later d/c'd to home. Patient then had unwitnessed syncope at home and was hypotensive and bradycardic upon EMS arrival. Patient brought to [facility] ER and admitted. Patient recurred with atypical atrial flutter on
07/04/2025 and was started on amiodarone 07/05/2025. There was attempt at CV on 07/06/2025 that was unsuccessful and patient now being considered for PPM.
-Patient had recurrent A-fib on 07/04/2025 and was then started on amiodarone. Patient had unsuccessful CV on 07/06/2025 and remains in A-fib without significant pauses on my review of telemetry 07/07/2025.
-Amiodarone increased to 200 mg TID 07/06/2025.
-Patient with tachycardia bradycardia and is recommended PPM placement. Case reviewed with EP and plan is for PPM 07/07/2025, preimplant orders placed by me.
-All AV alice blocking agents were held, but patient eventually restarted on Toprol XL 50 mg BID, this is an increase from outpatient dose.
-Patient was briefly bridged with heparin gtt, but Eliquis 5 mg BID was restarted 07/05/2025 PM. Eliquis dose held on the morning of 07/07/2025, orders placed by me.
-Nephrology is following and patient is receiving doses of Lasix 40 mg IV being ordered as one-time doses. Patient was taking Lasix 20 mg PO daily prior to admission, suspect outpatient dose of Lasix to be restarted on 07/07/2025.
-Outpatient dose of irbesartan 150 mg daily was hold due to YELENA, but Cre has improved to 0.8 on my review of labs 07/07/2025. Will likely restart irbesartan prior to discharge.
-Potassium 3.9 and magnesium 1.4 on my review of labs 07/07/2025, appreciate repletion by hospitalist attending
-Troponin was 10.7 on admission and trending down thereafter. This was treated as a nonischemic myocardial injury troponin elevation in the setting of ablation
-Elevated LFTs thought to be due to hypotension. Abdominal ultrasound without acute abnormalities. LFTs trending down
-Altered mental status seems to be waxing and waning, resolved. Head CT x 2 unremarkable for stroke or bleed. Continue to follow
-I offered to talk to the patient's family by phone to discuss PPM in detail, the patient declined 07/07/2025.
HPI 07/02/2025: Jessica is a 74 year old female with PMH of paroxysmal atrial fibrillation s/p PVI 2022 with repeat PVI 07/01/2025, pulmonary HTN, COPD, HTN, HLD, heart failure with preserved ejection fraction, and MR who presents to emergency
department 07/01/2025 with syncope. Patient had PVI ablation day earlier that day. Postprocedure she was found to have atrial tachycardia with heart elevated heart rates 120-150's bpm and was provided propafenone 450 mg along with home Toprol of 50
mg with yarsanism of sinus rhythm. There was concern of volume overload and she was provided 40 mg of IV Lasix. Later that afternoon patient later was deemed stable for discharge and went home. Later that evening patient had syncopal episode
striking face resulting in nasal bone fracture. EMS was called and on arrival patient was found to be bradycardic and hypotensive. She was provided several doses of atropine and fluid bolus. On presentation to emergency department she was noted
to have YELENA with creatinine of 1.6 and potassium of 6.8. LFTs elevated at AST 290, ALT 150. Troponin 10.7. EKG on admission showed sinus bradycardia with first-degree AV block, IVCD, QTc 548 ms. She was provided additional episodes of atropine
and placed on Levophed and one dose of IV Lasix. She was provided Lokelma, dextrose and insulin with improvement of potassium to 4.9 however upon repeat labs potassium 6.1. Patient was noted to have altered mental status and underwent head CT x 2
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 Given elevated LFTs patient underwent abdominal ultrasound which showed small volume of ascites within abdomen and thickened gallbladder with no
stones or sludge.
At time of this evaluation patient lying in bed it appears to be somewhat restless but denies being in pain to me. She is oriented to person place and time. Heart rates in 50s to 60s on Levophed 3 mics per kilogram per minute. Per nursing patient
has been an uric and bladder scan did not show any significant urine retention.
Progress Note - Water Service Supervisor
Subjective
Date of Service: July 07, 2025
Feels well, no palpitations
Objective
Labs:
07/07/25 06:51
07/07/25 06:51
Labs
Hgb 10.9 g/dL (12.0-16.0) L 07/07/25 06:51
Hct 34.3 % (37.0-47.0) L 07/07/25 06:51
Plt Count 141 10^3/uL (130-400) 07/07/25 06:51
PT 23.5 Sec (11.4-14.6) H 07/02/25 02:05
INR 2.04 07/02/25 02:05
APTT 112.7 Sec (23.4-35.0) H 07/05/25 18:33
Sodium 136 mmol/L (135-145) 07/07/25 06:51
Potassium 3.9 mmol/L (3.5-5.1) 07/07/25 06:51
BUN 25 mg/dl (7-17) H 07/07/25 06:51
Creatinine 0.8 mg/dL (0.6-1.0) 07/07/25 06:51
Glucose 88 mg/dl (70-99) 07/07/25 06:51
Vital Signs and I&O:
Vital Signs
Temp Pulse Resp BP Pulse Ox
98.1 F 108 18 144/93 97
07/07/25 07:59 07/07/25 08:25 07/07/25 07:59 07/07/25 08:25 07/07/25 07:59
Vital Signs
Temp Pulse Resp BP Pulse Ox
98.1 F 108 18 144/93 97
07/07/25 07:59 07/07/25 08:25 07/07/25 07:59 07/07/25 08:25 07/07/25 07:59
Intake & Output
07/05/25 07/06/25 07/07/25 07/08/25
06:59 06:59 06:59 06:59
Intake Total 2493 / 2493 1552 / 1552 720 / 720
Output Total 2475 / 2475 800 / 800
Balance 752 / 752 720 / 720
Physical Exam
Physical Exam
GEN: NAD
LUNGS: RA. No wheeze
CV: Afib on tele.
[2025-07-07] MEDS: ELIQUIS PO (09:22)
[2025-07-07] MEDS: LASIX 20 MG PO (09:24)
[2025-07-07] MEDS: KCL 40 MEQ PO (09:25)
[2025-07-07] MEDS: MAGNESIUM SULFATE 50 IV (09:44)
--- NOTE | 2025-07-07 11:24 | W.PN.HOSP.TC ---
Today's Communication/Plan
-
Transition to oral Lasix regimen
Hold Eliquis for now
Plan for PPM this afternoon
Monitor telemetry
Replete electrolytes as needed
Assessment / Plan
Assessment / Plan
#Paroxysmal AF with RVR
#Tachycardia-bradycardia
-Status post recent PVI with yarsani of NSR though converted back to AF with RVR
-Earlier in hospitalization had bradycardia; cardiology suspecting tachybradycardia
-Home regimen includes metoprolol succinate, Eliquis twice daily
-Was started on amiodarone 3 times daily by cardiology for rhythm control
-EP planning for PPM placement today; Home Eliquis held
-Continue beta-jim and amiodarone, monitor tele
-Likely resume DOAC tomorrow v. this evening
#Anuric YELENA due to ischemic ATN
#Hyperkalemia
-Upon arrival creatinine peak near 3.3 though has now rapidly improved with creatinine back to 1.3
-Status post IV fluids with signs of renal recovery, now polyuric as predicted with ATN
-Renal renal function stabilized, now back at baseline
-Avoid nephrotoxins as able, resume ARB as outpatient
#Acute hypoxemic respiratory insufficiency
#Decompensated HFpEF with RV dilation
-Likely degree of iatrogenic volume overload with IV fluids received here due to YELENA and ATN; BNP >5000
-Clinically improved with IV diuretics and now off of supplemental oxygen, now euvolemic
-Transition to oral diuretics today, trend I's and O's and daily weights
-Monitor on room air, SpO2 goal 88-94%
#Circulatory shock
#Bradycardia
#Shock liver
-Suspected prolonged vasovagal state from cardiac ablation and propafenone effect
-Was weaned off of vasopressors with IV fluids, systemic eliminaiton of propafenone
-Resolved
#Hypokalemia
#Hypomagnesia
-Likely associated with diuresis
-Continue to trend BMP and mag
-Replete K >4 and Mag > 2
#Toxic metabolic encephalopathy
#Hospital delirium
-Suspect this is associated with propafenone, YELENA
-Resolved with IV fluids and time
-Delirium precautions
#Elevated troponin
-Nonischemic myocardial injury secondary to ablation outpatient
-No chest pain, dynamic ECG change or other sign of ACS
-Troponin trend not consistent with ACS
#COPD
#GEETHA not on CPAP
#Pulmonary hypertension
-No O2 requirements at baseline, does not wear CPAP nightly
-Likely group 3 pulmonary hypertension from intrinsic lung disease
-No signs of COPD flare at this time; not currently on maintenance therapy
-Monitor clinically, consider LABA/LAMA at discharge for maintenance therapy
#Hypothyroidism
-Unclear etiology, possibly Blanco's
-No signs of abnormal thyroid function at this time
-Continue home levothyroxine dose
#Dyslipidemia
-No known ASCVD history
-Home regimen includes moderate intensity atorvastatin
Diet: Potassium restricted diet
Thromboprophylaxis: Heparin drip in place of home Eliquis
CODE STATUS: Full code
Disposition: PT recommending home PT versus SNF
Anticipated Discharge: 24 - 48 hours
Subjective/Interval History
-
Date of Service: July 07, 2025
Seen and examined at the bedside. No acute events reported overnight. AFVSS on room air
Plan for pacemaker later today with cardiology for the indication of tachybradycardia syndrome
Patient denies any new complaints today. Magnesium and potassium repleted this morning
Objective Data
-
Labs:
Laboratory Results
07/07/25
06:51
WBC 6.3
Hgb 10.9 L
Hct 34.3 L
Plt Count 141
Sodium 136
Potassium 3.9
Chloride 104
Carbon Dioxide 27
BUN 25 H
Creatinine 0.8
Glucose 88
Calcium 8.3 L
AST 296 H
ALT 490 H
Vital Signs:
Vital Signs
Temp Pulse Resp BP Pulse Ox
98.1 F 108 18 144/93 97
07/07/25 07:59 07/07/25 09:24 07/07/25 07:59 07/07/25 09:24 07/07/25 09:00
I&O
07/06/25 07/07/25 07/08/25
06:59 06:59 06:59
Intake Total 1552 / 1552 720 / 720 50 / 50
Output Total 800 / 800
Balance 752 / 752 720 / 720 50 / 50
Review of Systems
-
History Source: Patient
All other systems: Reviewed and negative
Physical Exam
-
General: Well Developed, Well Nourished and No Apparent Distress
HEENT: Normocephalic, Atraumatic, Moist Mucous Membranes, Anicteric and Other (Ecchymoses, left perioral)
Respiratory: Clear to Auscultation and Non Labored Respirations; Negative Accessory Resp Muscle Use
Cardiac: S1/S2, Irregular Rhythm and Tachycardic; Negative Murmur, Rub, JVD or Gallop
GI: Soft, Nontender, Nondistended and Normal Bowel Sounds
Musculoskeletal: No Clubbing, No Cyanosis and No Edema
Skin: Warm and Dry; Negative Rash
Neuro: AO x 3 and Nonfocal/Grossly Intact
Psych: Calm
Data Reviewed
-
Labs: Labs Reviewed by me and Discussed with Patient
--- NOTE | 2025-07-07 12:21 | CM ---
Reviewed the chart notes. Plan for PPM this afternoon. PT recommendation is home PT vs SNF. CM continues to be available to patient/family and is monitoring medical plan for needs at discharge.
Plan: Discharge to home with [facility] services when medically stable.
--- NOTE | 2025-07-07 13:07 | W.PN.UPDATE ---
Update Note
Progress Note Update
Briefly, patient is a pleasant 74-year-old female with a past medical significant for symptomatic paroxysmal atrial fibrillation, heart failure with preserved ejection fraction, pulmonary hypertension, COPD, hypertension, hyperlipidemia, valvular
heart disease who had presented with a syncopal episode in the setting of symptomatic significant bradycardia with concurrent tachybradycardia syndrome. In the setting of patient's symptomatic significant sinus bradycardia with syncope and
tachybradycardia syndrome, will recommend patient to go elective implant of dual-chamber pacemaker. Additionally, in the setting of her need for AV alice blocking agents and rhythm control strategy, patient to benefit from implantation of permanent
device. Regarding pacemaker, we discussed pacemaker indications and device implant in detail. For implant there is an approximate 1:1000 risk of NC/stroke/ and a 1% risk of pneumothorax/tamponade/infection/bleeding. We also discussed post
procedure implant restrictions including positions to avoid with implant arm for first six weeks after implant as well as driving restrictions. I took time to answer all questions.. Patient verbalized understanding and agreed with plan. Patient
remains n.p.o. for dual-chamber device.
--- NOTE | 2025-07-07 13:39 | ITS.CL.PACE ---
Bpo Specialist - Pacemaker Implant
Pacemaker Implant
Procedure Report:
Primary Care Doctor: Dr Rocha
Primary Analytical Scientist: Dr Martine Mendoza
Procedure Date: 07/07/2025
Name of procedure:
1. Placement of a dual-chamber pacemaker with left bundle area pacing lead for conduction system pacing
2. Subclavian venography
1. Patient is a pleasant 74-year-old female with a past medical history significant for atrial fibrillation, heart failure preserved ejection fraction, pulmonary hypertension, COPD, hypertension, hyperlipidemia, valvular heart disease, symptomatic
bradycardia with syncope, tachybradycardia syndrome.
2. Please refer to H&P for complete history.
Indication:
Symptomatic sinus bradycardia with syncope
Tachybradycardia syndrome
Need for AV alice blocking agents
Methods:
After informed consent was obtained, the patient was brought to the EP laboratory in a postabsorptive, nonsedated state. Peripheral IV access was established. Prophylactic antibiotics were administered prior to incision. Continuous ECG, blood
pressure, and pulse oximetry were initiated. Cardioversion patch electrodes were placed on the patient's chest and back. A grounding patch was applied to the skin. Sedation was administered left.
In order to define the extrathoracic portion of the subclavian vein and exclude significant venous obstruction or anomalous anatomy, subclavian venography was performed prior to the procedure. Using the patient's left peripheral IV, contrast was
injected and images were recorded. The left subclavian vein and SVC were found to be widely patent.
The left chest was prepared and draped in a sterile fashion. A time-out was performed. Local anesthesia was injected in the subcutaneous tissue in the infraclavicular area. An incision was made medial to the deltopectoral groove. The subcutaneous
tissue was dissected the level of the prepectoral fascia. A subcutaneous pocket was created. Under fluoroscopic guidance and with the assistance of the images from the venogram, 2 separate venipunctures were made using micropuncture and modified
Seldinger technique. These were performed in the extrathoracic portion of the subclavian vein. Guidewires were passed and two peel-away sheaths were placed, and used to advance leads into the circulation.
Fluoroscopy was used to determine likely anatomic site for left bundle branch pacing. The Medtronic C315 sheath was used to deliver the Medtronic 3830 Selectsecure pacing lead with the helix exposed just exposed from the sheath tip during continuous
monitoring when pacemapping the septum during gentle clockwise rotation to obtain a paced QRS morphology of a W pattern in lead V1. Once the suspected optimal site was identified, lead deployment was performed with several rapid rotations as paced
QRS morphology was intermittently monitored until a paced QRS complex in lead V1 demonstrated development of an R wave (qR or rSR). Unipolar pacing impedance dropped by approximately 100-200 ohms suggesting it had reached the left ventricular
subendocardial. Stable VEgm injury current is present throughout lead position and at end of case. Final unipolar pacing impedance is 950 Ohms. Unipolar pacing threshold is stable at 1.0 V @ 0.4 ms. The patient had pre-existing narrow QRS and a
sharp high-frequency left bundle-branch potential was observed preceding the local ventricular electrogram. Final conduction system paced QRS complex duration is 108 ms, LVAT is 74 ms, and peak V5 -> peak V1 timing is 46 ms. The C315 sheath was slit
under fluoroscopy ensuring lead position and stability.
Next, the right atrial lead was positioned in the right atrial appendage. Adequate sensing and pacing parameters were found, and no diaphragmatic stimulation was seen with high-output pacing. Both sheaths were split, and the leads were secured to
the fascia with Ethibond ties.
The pocket was flushed with antibiotic solution and hemostasis was assured. The generator was connected to the leads and placed inside the pocket. The device was sutured to the fascia. Antibiotic envelope was used. Floseal was applied. The wound
was closed with 3 running layers of absorbable suture, and steri-strips were applied. Dressing applied over steri-strips in standard fashion.
Following the procedure, the patient was taken to the recovery area in stable condition. A chest x-ray to be obtained post procedure as routine.
Lead parameters and device programming:
- RA Lead (MedAxiata, Model 5076, # [id number]): Sensing 0.9 mV, Pacing threshold not performed patient in AF, Imp 494 ohm
- RV Lead (Medtronic, Model 3830, #[id number]): Sensing 6.6 mV, Pacing threshold 0.5 V at 0.4 ms, Imp 912 ohm(unipolar)
- Device: Medtronic, Model W1 DR 01 pacemaker (# [id number]), programmed AAIR�DDDR mode, 60-130 ppm
Conclusions:
1. Successful placement of a dual-chamber pacemaker with conduction system pacing (LBBAP)
2. Subclavian venography
Recommendations:
- Return to patient room
- [facility]
- IV antibiotics while the patient is admitted.
- OK to resume home medications as indicated
- Pressure dressing to be removed in AM, aquacell to remain until wound check
- Follow-up will be arranged in the office in 7-10 days post-discharge for incision check
Patrick Slater DO, FACC, RS
Clinical Cardiac Instructional Systems Designer
cc: Dr Rocha; Dr Martine Mendoza; Dr Jaime Mendoza
--- NOTE | 2025-07-07 15:59 | W.PN.NEPH.PH ---
Today's Communication / Plan
-
follow labs
cont lasix po
will s/o, call with ?s
Assessment/Plan
-
IMPRESSION:
Bradycardic shock
lactic acidosis
Worsening YELENA with anuria
Hyperkalemia
Acute encephalopathy
Syncope with facial trauma
Status post PVI for afib
Shock liver
PLAN:
YELENA-cr normal down to 0.8
replace mg
LFTs improving
s/p PPM today
stable bps
Follow BMP
cont po lasix
-
-
Date of Service: July 07, 2025
CC / HPI / ROS
-
Chief Complaint:
YELENA
History of Present Illness:
YELENA/Cr down to 0.8
k justina, s/p PPM today
bp stable
Review of Systems:
no CP/SOB
Labs
-
Labs:
WBC 6.3 10^3/uL (4.8-10.8) 07/07/25 06:51
RBC 3.68 10^6/uL (4.20-5.40) L 07/07/25 06:51
Hgb 10.9 g/dL (12.0-16.0) L 07/07/25 06:51
Hct 34.3 % (37.0-47.0) L 07/07/25 06:51
Plt Count 141 10^3/uL (130-400) 07/07/25 06:51
Sodium 136 mmol/L (135-145) 07/07/25 06:51
Potassium 3.9 mmol/L (3.5-5.1) 07/07/25 06:51
Chloride 104 mmol/L (98-107) 07/07/25 06:51
Carbon Dioxide 27 mmol/L (22-30) 07/07/25 06:51
BUN 25 mg/dl (7-17) H 07/07/25 06:51
Creatinine 0.8 mg/dL (0.6-1.0) 07/07/25 06:51
eGFR > 60.00 07/07/25 06:51
Glucose 88 mg/dl (70-99) 07/07/25 06:51
Calcium 8.3 mg/dl (8.4-10.2) L 07/07/25 06:51
Phosphorus 6.4 mg/dl (2.5-4.5) H 07/03/25 14:00
Uzm-G-Ezwaczqgrua Pept 5470 pg/ml 07/04/25 11:24
Albumin 3.4 g/dl (3.5-5.0) L 07/05/25 06:53
Physical Exam
-
Vital Signs:
Vital Signs
Temp Pulse Resp BP Pulse Ox
97.5 F 85 18 123/69 94
07/07/25 15:56 07/07/25 15:56 07/07/25 15:56 07/07/25 15:56 07/07/25 15:56
Cardiovascular:: Regular rate and rhythm
Respiratory:: Bilateral: Coarse
Lung Excursion:: Normal
Abdomen:: Nontender and Soft
Bowel Sounds:: Normal
Extremity Edema:: +2: Bilateral:
Scott Catheter: No
--- NOTE | 2025-07-07 18:08 | PTCARENOTE ---
Patient received from microbiology lab technician; Pacemaker site dsg c/d/i; AAOx3; denies pain at this time; VSS.
[2025-07-07] MEDS: ANCEF 5 IV (20:57)
[2025-07-08] VITALS (7 sets, daily range): BP systolic 101–132; BP diastolic 65–93; PULSE 110; BMI 22.8
[2025-07-08] MEDS: ANCEF 5 IV (04:39)
[2025-07-08] MEDS: SYNTHROID 50 MCG PO (05:33)
[2025-07-08 06:26] LABS: Hematocrit 32.7 % (37.0-47.0); Hemoglobin 10.8 g/dL (12.0-16.0); Mean Corp Hgb Conc. 33.0 g/dL (33.0-37.0); Mean Corpuscular Volume 91.9 fL (81.0-99.0); Nucleated Red Blood Cells % 0 %; Platelet Count 145 10^3/uL (130-400); Red Cell Dist. Width 15.2 % (11.5-14.5)
[2025-07-08 06:57] LABS: Blood Urea Nitrogen 18 mg/dl (7-17); Calcium 8.5 mg/dl (8.4-10.2); Carbon Dioxide 28 mmol/L (22-30); Chloride 103 mmol/L (98-107); Estimated Creatinine Clearance 48 ml/min; Glucose 84 mg/dl (70-99); Magnesium 1.3 mg/dl (1.6-2.3); Potassium 4.4 mmol/L (3.5-5.1); Sodium 135 mmol/L (135-145); eGFR > 60.00
[2025-07-08] MEDS: MAGNESIUM SULFATE 50 IV (08:46)
[2025-07-08] MEDS: ELIQUIS 5 MG PO ×2 (08:48→20:57)
[2025-07-08] MEDS: PACERONE 200 MG PO ×3 (08:53→23:10)
[2025-07-08] MEDS: TOPROL XL 50 MG PO (08:54)
[2025-07-08] MEDS: LASIX 20 MG PO (08:54)
--- NOTE | 2025-07-08 10:49 | W.PN.HOSP.TC ---
Today's Communication/Plan
-
Increase metoprolol to tartrate to 100 twice daily
Continue with amiodarone and Eliquis
Monitor telemetry
Likely discharge within next 24 hours
Assessment / Plan
Assessment / Plan
#Paroxysmal AF with RVR
#Tachycardia-bradycardia
-Status post recent PVI with mandaeism of NSR though converted back to AF with RVR
-Earlier in hospitalization had bradycardia; cardiology suspecting tachybradycardia
-Home regimen includes metoprolol succinate, Eliquis twice daily
-Was started on amiodarone 3 times daily by cardiology for rhythm control
-POD 1 from [facility], remains in AF with heart rate near 100/min
Plan
-Increase metoprolol to tartrate to 100 mg twice daily for rate
-Continue amiodarone load with 200 mg 3 times daily
-Continue with home DOAC, monitor telemetry
#Anuric YELENA due to ischemic ATN
#Hyperkalemia
-Upon arrival creatinine peak near 3.3 though has now rapidly improved with creatinine back to 1.3
-Status post IV fluids with signs of renal recovery, now polyuric as predicted with ATN
-Renal renal function stabilized, now back at baseline
Plan
-Trend BMP QD while here
-Avoid nephrotoxins as able
-Resume ARB as outpatient
#Acute hypoxemic respiratory insufficiency
#Decompensated HFpEF with RV dilation
-Likely degree of iatrogenic volume overload with IV fluids received here due to YELENA and ATN; BNP >5000
-Clinically improved with IV diuretics and now off of supplemental oxygen, now euvolemic
-Transition to oral diuretics today, trend I's and O's and daily weights
-Monitor on room air, SpO2 goal 88-94%
#Circulatory shock
#Bradycardia
#Shock liver
-Suspected prolonged vasovagal state from cardiac ablation and propafenone effect
-Was weaned off of vasopressors with IV fluids, systemic eliminaiton of propafenone
-Resolved
#Hypokalemia
#Hypomagnesia
-Likely associated with diuresis
-Continue to trend BMP and mag
-Replete K >4 and Mag > 2
#Toxic metabolic encephalopathy
#Hospital delirium
-Suspect this is associated with propafenone, YELENA
-Resolved with IV fluids and time
-Delirium precautions
#Elevated troponin
-Nonischemic myocardial injury secondary to ablation outpatient
-No chest pain, dynamic ECG change or other sign of ACS
-Troponin trend not consistent with ACS
#COPD
#GEETHA not on CPAP
#Pulmonary hypertension
-No O2 requirements at baseline, does not wear CPAP nightly
-Likely group 3 pulmonary hypertension from intrinsic lung disease
-No signs of COPD flare at this time; not currently on maintenance therapy
-Monitor clinically, consider LABA/LAMA at discharge for maintenance therapy
#Hypothyroidism
-Unclear etiology, possibly Blanco's
-No signs of abnormal thyroid function at this time
-Continue home levothyroxine dose
#Dyslipidemia
-No known ASCVD history
-Home regimen includes moderate intensity atorvastatin
Diet: Potassium restricted diet
Thromboprophylaxis: Heparin drip in place of home Eliquis
CODE STATUS: Full code
Disposition: Home care when medically stable
Anticipated Discharge: Within 24 hours
Subjective/Interval History
-
Date of Service: July 08, 2025
Seen and examined at the bedside. No acute events reported overnight. AFVSS this morning, heart rate near 100
POD 1 from pacemaker placement yesterday, procedure went well, hemoglobin stable as is renal function
She states she feels well and denies any complaints. No significant pain at her PPM site. Denies palpitations, chest pain, dyspnea
Objective Data
-
Labs:
Laboratory Results
07/08/25
05:33
WBC 6.5
Hgb 10.8 L
Hct 32.7 L
Plt Count 145
Sodium 135
Potassium 4.4
Chloride 103
Carbon Dioxide 28
BUN 18 H
Creatinine 0.9
Glucose 84
Calcium 8.5
Vital Signs:
Vital Signs
Temp Pulse Resp BP Pulse Ox
97.6 F 99 18 123/70 93
07/08/25 07:35 07/08/25 08:54 07/08/25 07:35 07/08/25 08:54 07/08/25 07:35
I&O
07/07/25 07/08/25 07/09/25
06:59 06:59 06:59
Intake Total 720 / 720 970 / 970 50 / 50
Balance 720 / 720 970 / 970 50 / 50
Review of Systems
-
History Source: Patient
All other systems: Reviewed and negative
Physical Exam
-
General: Well Developed, Well Nourished and No Apparent Distress
HEENT: Normocephalic, Moist Mucous Membranes, Anicteric and PERRLA; Negative Atraumatic (Ecchymoses, left periorbital)
Respiratory: Clear to Auscultation and Non Labored Respirations; Negative Accessory Resp Muscle Use
Cardiac: S1/S2, Irregular Rhythm and Tachycardic; Negative Murmur, Rub or Gallop
GI: Soft, Nontender, Nondistended and Normal Bowel Sounds
Musculoskeletal: No Clubbing, No Cyanosis, No Edema and Other (Left shoulder and chest wall bandaged following pacemaker)
Skin: Warm and Dry; Negative Rash
Neuro: AO x 3, Nonfocal/Grossly Intact and Central Nerve's Intact
Psych: Calm
Data Reviewed
-
Labs: Labs Reviewed by me, Discussed with Physician (Ion Implant Machine Operator) and Discussed with Patient
[2025-07-08] MEDS: LOPRESSOR 50 MG PO (11:09)
--- NOTE | 2025-07-08 12:26 | W.PN.CARDCBS ---
Today's Communication / Plan
-
Remains in A-fib
Continue amiodarone 200 mg p.o. 3 times daily while in inpatient and changed to 200 p.o. twice daily when discharged
Consider outpatient cardioversion
Impression / Plan
-
PCP: Dr. Hutchison/kemal
Administrative Professional: Dr. Martine Mendoza
Customizer: Jaime Mendoza
Impression:
Presented with syncope, bradycardia, hypotension following PVI and propafenone administration for keya-it-hqnhex therapy 07/01/2025
Syncope resulting in nasal fractures 07/01/25
Status post permanent pacer implant 07/07/2025
s/p PVI 07/01/25
Newly diagnosed paroxysmal atrial tachycardia following pulsed field PVI, given propafenone 600 mg PO x1 and then discharged to home 07/01/2025
Symptomatic bradycardia, possibly related to propafenone pill in pocket dose given 07/01/2025, now asymptomatic
RV dysfunction
Abnormal LFTs
Abnormal troponin, nonischemic myocardial injury
Paroxysmal atrial fibrillation
s/p PVI 03/18/2023
s/p CV 02/04/2025
s/p pulsed field PVI plus AF ablation sets X 3 after PVI (LA posterior wall, Inf/floor of the LA posterior wall, Ligament of Tayo) resulting in elimination of the targeted extra PV contributors to atrial fibrillation. Had atrial tachycardia
postprocedure
Chronic Eliquis AC
Heart failure with preserved ejection fraction
Pulmonary HTN
COPD
HTN
HLD
Mild-mod MR by echo 11/2024
RAUL 03/12/2023: EF 55-60%, mild MR, moderate to severe TR, estimated PAP 31 mmHg
Echo 11/26/2023: EF 55-60%, moderate MR, moderate to severe TR, estimated PAP 52 mmHg,
Echo 12/01/2024: EF 54%, mild to mod MR, mod TR, estimated PAP 51 mmHg
Echo 07/02/2025: EF 50%, mod MR, sev TR PASP 28 mmHg; dilated RV with RV dysfunction
Plan:
Patient underwent pacer implant on 07/07/2025
Remains in atrial fibrillation
We will continue amiodarone loading with 200 mg p.o. 3 times daily while patient remains in inpatient and consider outpatient cardioversion
Continue Eliquis
Restart irbesartan 150 mg daily which was held due to renal insufficiency which has resolved
Elevated LFTs thought to be due to hypotension. Abdominal ultrasound without acute abnormalities. LFTs trending down
HPI 07/02/2025: Jessica is a 74 year old female with PMH of paroxysmal atrial fibrillation s/p PVI 2022 with repeat PVI 07/01/2025, pulmonary HTN, COPD, HTN, HLD, heart failure with preserved ejection fraction, and MR who presents to emergency
department 07/01/2025 with syncope. Patient had PVI ablation day earlier that day. Postprocedure she was found to have atrial tachycardia with heart elevated heart rates 120-150's bpm and was provided propafenone 450 mg along with home Toprol of 50
mg with voodoo of sinus rhythm. There was concern of volume overload and she was provided 40 mg of IV Lasix. Later that afternoon patient later was deemed stable for discharge and went home. Later that evening patient had syncopal episode
striking face resulting in nasal bone fracture. EMS was called and on arrival patient was found to be bradycardic and hypotensive. She was provided several doses of atropine and fluid bolus. On presentation to emergency department she was noted
to have YELENA with creatinine of 1.6 and potassium of 6.8. LFTs elevated at AST 290, ALT 150. Troponin 10.7. EKG on admission showed sinus bradycardia with first-degree AV block, IVCD, QTc 548 ms. She was provided additional episodes of atropine
and placed on Levophed and one dose of IV Lasix. She was provided Lokelma, dextrose and insulin with improvement of potassium to 4.9 however upon repeat labs potassium 6.1. Patient was noted to have altered mental status and underwent head CT x 2
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 Given elevated LFTs patient underwent abdominal ultrasound which showed small volume of ascites within abdomen and thickened gallbladder with no
stones or sludge.
At time of this evaluation patient lying in bed it appears to be somewhat restless but denies being in pain to me. She is oriented to person place and time. Heart rates in 50s to 60s on Levophed 3 mics per kilogram per minute. Per nursing patient
has been an uric and bladder scan did not show any significant urine retention.
Progress Note - Administrative Professional
Subjective
Date of Service: July 08, 2025
No complaints
Objective
Labs:
07/08/25 05:33
07/08/25 05:33
Labs
Hgb 10.8 g/dL (12.0-16.0) L 07/08/25 05:33
Hct 32.7 % (37.0-47.0) L 07/08/25 05:33
Plt Count 145 10^3/uL (130-400) 07/08/25 05:33
PT 23.5 Sec (11.4-14.6) H 07/02/25 02:05
INR 2.04 07/02/25 02:05
APTT 112.7 Sec (23.4-35.0) H 07/05/25 18:33
Sodium 135 mmol/L (135-145) 07/08/25 05:33
Potassium 4.4 mmol/L (3.5-5.1) 07/08/25 05:33
BUN 18 mg/dl (7-17) H 07/08/25 05:33
Creatinine 0.9 mg/dL (0.6-1.0) 07/08/25 05:33
Glucose 84 mg/dl (70-99) 07/08/25 05:33
Vital Signs and I&O:
Vital Signs
Temp Pulse Resp BP Pulse Ox
97.6 F 69 16 103/65 96
07/08/25 11:10 07/08/25 11:10 07/08/25 11:10 07/08/25 11:10 07/08/25 11:10
Vital Signs
Temp Pulse Resp BP Pulse Ox
97.6 F 69 16 103/65 96
07/08/25 11:10 07/08/25 11:10 07/08/25 11:10 07/08/25 11:10 07/08/25 11:10
Intake & Output
07/06/25 07/07/25 07/08/25 07/09/25
06:59 06:59 06:59 06:59
Intake Total 1552 / 1552 720 / 720 970 / 970 50 / 50
Output Total 800 / 800
Balance 752 / 752 720 / 720 970 / 970 50 / 50
Physical Exam
Physical Exam
General: Well developed, well nourished in NAD.
Neck: Supple, no JVD, HJR, carotids +2 B/L, no bruits bilaterally.
Heart: Non displaced PMI, RRR, no murmurs, No S3, S4, no rubs.
Lungs: Scattered rhonchi
Left pacer dressings noted
Extremities: No clubbing, cyanosis or edema bilaterally.
Neuro: Grossly nonfocal, awake, alert and oriented x3.
[2025-07-08] MEDS: TYLENOL 650 MG PO (12:51)
[2025-07-08] MEDS: AVAPRO 150 MG PO (13:16)
--- NOTE | 2025-07-08 16:06 | CM ---
Reviewed the chart notes and spoke with the patient at the bedside. IMM reviewed. CM continues to be available to patient/family and is monitoring medical plan for needs at discharge.
Plan: Discharge to home with [facility] services.
--- NOTE | 2025-07-08 17:26 | PTCARENOTE ---
pacemaker dressing and immobilizer removed by Nanette Howell PA at beside. Primaseal applied by her and care instructions, dos/dont discusssed by PA. plan of care continues to be followed.
[2025-07-08] MEDS: TOPROL XL 100 MG PO (20:59)
[2025-07-09 03:04] VITALS: BP 120/82
[2025-07-09] MEDS: SYNTHROID 50 MCG PO (05:52)
[2025-07-09 07:55] VITALS: BP 134/89
[2025-07-09 08:09] LABS: Albumin 3.1 g/dl (3.5-5.0); Blood Urea Nitrogen 17 mg/dl (7-17); Calcium 8.4 mg/dl (8.4-10.2); Carbon Dioxide 28 mmol/L (22-30); Chloride 102 mmol/L (98-107); Estimated Creatinine Clearance 48 ml/min; Glucose 82 mg/dl (70-99); Potassium 4.3 mmol/L (3.5-5.1); Sodium 133 mmol/L (135-145); eGFR > 60.00
[2025-07-09] MEDS: AVAPRO 150 MG PO (08:22)
[2025-07-09] MEDS: TOPROL XL 100 MG PO (08:22)
[2025-07-09] MEDS: ELIQUIS 5 MG PO (08:22)
[2025-07-09] MEDS: PACERONE 200 MG PO (08:23)
[2025-07-09] MEDS: LASIX 20 MG PO (08:23)
[2025-07-09 08:58] VITALS: BMI 22.6
--- NOTE | 2025-07-09 09:24 | W.PN.HOSP.TC ---
Today's Communication/Plan
-
Discharge
Assessment / Plan
Assessment / Plan
#Paroxysmal AF with RVR
#Tachycardia-bradycardia
-Status post recent PVI with baptism of NSR though converted back to AF with RVR
-Earlier in hospitalization had bradycardia; cardiology suspecting tachybradycardia
-Home regimen includes metoprolol succinate, Eliquis twice daily
-Was started on amiodarone 3 times daily by cardiology for rhythm control
-POD 1 from [facility], remains in AF with heart rate near 100/min
Plan
-Continue metoprolol tartrate 100 mg twice daily
-Continue amiodarone load with 200 mg BID at discharge
-Continue with home DOAC, monitor telemetry
#Anuric YELENA due to ischemic ATN
#Hyperkalemia
-Upon arrival creatinine peak near 3.3 though has now rapidly improved with creatinine back to 1.3
-Status post IV fluids with signs of renal recovery, now polyuric as predicted with ATN
-Renal renal function stabilized, now back at baseline
Plan
-Trend BMP QD while here
-Avoid nephrotoxins as able
-Resume ARB as outpatient
#Acute hypoxemic respiratory insufficiency
#Decompensated HFpEF with RV dilation
-Likely degree of iatrogenic volume overload with IV fluids received here due to YELENA and ATN; BNP >5000
-Clinically improved with IV diuretics and now off of supplemental oxygen, now euvolemic
-Transition to oral diuretics today, trend I's and O's and daily weights
-Monitor on room air, SpO2 goal 88-94%
-Resolved
#Circulatory shock
#Bradycardia
#Shock liver
-Suspected prolonged vasovagal state from cardiac ablation and propafenone effect
-Was weaned off of vasopressors with IV fluids, systemic eliminaiton of propafenone
-Resolved
#Hypokalemia
#Hypomagnesia
-Likely associated with diuresis
-Continue to trend BMP and mag
-Replete K >4 and Mag > 2
#Toxic metabolic encephalopathy
#Hospital delirium
-Suspect this is associated with propafenone, YELENA
-Resolved with IV fluids and time
-Delirium precautions
#Elevated troponin
-Nonischemic myocardial injury secondary to ablation outpatient
-No chest pain, dynamic ECG change or other sign of ACS
-Troponin trend not consistent with ACS
#COPD
#GEETHA not on CPAP
#Pulmonary hypertension
-No O2 requirements at baseline, does not wear CPAP nightly
-Likely group 3 pulmonary hypertension from intrinsic lung disease
-No signs of COPD flare at this time; not currently on maintenance therapy
-Monitor clinically, consider LABA/LAMA at discharge for maintenance therapy
#Hypothyroidism
-Unclear etiology, possibly Blanco's
-No signs of abnormal thyroid function at this time
-Continue home levothyroxine dose
#Dyslipidemia
-No known ASCVD history
-Home regimen includes moderate intensity atorvastatin
Diet: Potassium restricted diet
Thromboprophylaxis: Heparin drip in place of home Eliquis
CODE STATUS: Full code
Disposition: Home care when medically stable
Anticipated Discharge: Today
Subjective/Interval History
-
Date of Service: July 09, 2025
Seen and examined at the bedside. No acute events reported overnight. AFVSS this morning, HR near 80/min and NSR at my exam
Patient states she feels well, denies any new complaints and is eager for discharge
LFTs continue to improve, renal function stable
Objective Data
-
Labs:
Laboratory Results
07/09/25
07:13
Sodium 133 L
Potassium 4.3
Chloride 102
Carbon Dioxide 28
BUN 17
Creatinine 0.9
Glucose 82
Calcium 8.4
Vital Signs:
Vital Signs
Temp Pulse Resp BP Pulse Ox
97.9 F 80 18 134/89 95
07/09/25 07:55 07/09/25 07:55 07/09/25 07:55 07/09/25 07:55 07/09/25 07:55
I&O
07/08/25 07/09/25 07/10/25
06:59 06:59 06:59
Intake Total 970 / 970 1080 / 1080
Balance 970 / 970 1080 / 1080
Review of Systems
-
History Source: Patient
All other systems: Reviewed and negative
Physical Exam
-
General: Well Developed, Well Nourished and No Apparent Distress
HEENT: Normocephalic, Atraumatic, Moist Mucous Membranes and Anicteric
Respiratory: Clear to Auscultation and Non Labored Respirations; Negative Accessory Resp Muscle Use
Cardiac: Regular Rhythm and S1/S2; Negative Murmur, Rub or Gallop
GI: Soft, Nontender, Nondistended and Normal Bowel Sounds
Musculoskeletal: No Clubbing, No Cyanosis and No Edema
Skin: Warm and Dry; Negative Rash
Neuro: AO x 3, Nonfocal/Grossly Intact and Central Nerve's Intact
Psych: Calm
Data Reviewed
-
Labs: Labs Reviewed by me and Discussed with Patient
--- NOTE | 2025-07-09 09:25 | W.PN.CARDCBS ---
Addendum entered and electronically signed by Rolan Leone MD 07/09/25 11:04:
I saw and examined the patient.
The Division Chief's note was reviewed and I agree with the note.
Comment:
GEN: No distress, awake, Ox3
HEENT: supple, anicteric, mmm
LUNGS: CTA, no wheezes/rales
CV: Reg, S1/S2, 1/6 syst LSB, no murmur
ABD: soft, BS+, NT/ND
EXT: No edema
NEURO: Gross non-focal
SKIN: L dressing intact
Plan:
Overall looks well. AST and ALT continue to improve. Okay to continue amiodarone. 200 mg p.o. twice daily for 1 month then 200 mg daily.
Will get repeat CMP in 1 week.
Continue to hold atorvastatin.
Continue Eliquis. Will arrange outpatient cardiology follow-up
Original Note:
Today's Communication / Plan
-
Check CMP today
Back on irbesartan continue to monitor blood pressure
Discharge on amiodarone 200 mg twice a day x 1 month then 200 mg daily thereafter
Would not discharge home on doxazosin or atorvastatin
Needs CMP 7-10 days post discharge, labs slip placed on chart
Continue Eliquis
Pacemaker incision check and outpatient cardiology follow-up has been arranged
Impression / Plan
-
PCP: Dr. Hutchison/kemal
Platform Stapler: Dr. Martine Mendoza
Mammography Supervisor: Jaime Mendoza
Impression:
Presented with syncope, bradycardia, hypotension following PVI and propafenone administration for [id number] therapy 07/01/2025
Syncope resulting in nasal fractures 07/01/25
SSS/Syncope
Status post permanent pacer implant 07/07/2025
Paroxysmal atrial fibrillation
s/p PVI 07/01/25
Newly diagnosed paroxysmal atrial tachycardia following pulsed field PVI, given propafenone 600 mg PO x1 and then discharged to home 07/01/2025
Symptomatic bradycardia, possibly related to propafenone pill in pocket dose given 07/01/2025, s/p PPM 07/07
RV dysfunction
Abnormal LFTs
Abnormal troponin, nonischemic myocardial injury
Paroxysmal atrial fibrillation
s/p PVI 03/18/2023
s/p CV 02/04/2025
s/p pulsed field PVI plus AF ablation sets X 3 after PVI (LA posterior wall, Inf/floor of the LA posterior wall, Ligament of Tayo) resulting in elimination of the targeted extra PV contributors to atrial fibrillation. Had atrial tachycardia
postprocedure 07/01/25
Chronic Eliquis AC
Heart failure with preserved ejection fraction
Pulmonary HTN
COPD
HTN
HLD
Mild-mod MR by echo 11/2024
RAUL 03/12/2023: EF 55-60%, mild MR, moderate to severe TR, estimated PAP 31 mmHg
Echo 11/26/2023: EF 55-60%, moderate MR, moderate to severe TR, estimated PAP 52 mmHg,
Echo 12/01/2024: EF 54%, mild to mod MR, mod TR, estimated PAP 51 mmHg
Echo 07/02/2025: EF 50%, mod MR, sev TR PASP 28 mmHg; dilated RV with RV dysfunction
Plan:
Presented 07/01/2025 with syncopal episode and found to be bradycardic and hypotensive. Patient had pulsed field PVI ablation earlier that day and had atrial tachycardia following procedure and was provided 450 mg of oral propafenone +50 mg of
Toprol. She was then discharged home and later had syncopal episode. Patient continued to have evidence of sick sinus syndrome/tachybradycardia syndrome during admission and ultimately underwent dual-chamber [employer] pacer implant on 07/07/2025.
- Pacemaker incision site stable without hematoma. Outpatient cardiology incision check has been arranged
Paroxysmal atrial fibrillation as well as atrial tachycardia status post PVI 07/01/2025. Recurrent paroxysmal atrial fibrillation following PVI ablation. Underwent cardioversion 07/06/2025. However had a reoccurrence of atrial fibrillation.
Appears to be paroxysmal upon reviewing of telemetry 07/09/2025 that she does have periods of sinus rhythm
- Status post pacemaker for tachybradycardia syndrome.
-We will continue amiodarone loading with 200 mg p.o. 3 times daily while patient remains inpatient then reduce to 200 mg twice a day for 1 month as outpatient. Maintenance dosing after that will be 200 mg daily.
-Consider outpatient cardioversion once patient has completed amiodarone load if she remains in atrial fibrillation
-EKG 07/08/2025 atrial fibrillation with ventricular paced complexes, QTc 397 ms
-Maintain Eliquis 5 mg twice daily for atrial fibrillation related thromboembolic risk reduction.
Back on irbesartan 150 mg daily (resume 07/08) which was held due to renal insufficiency which has resolved. Doxazosin remains on hold
AST
Elevated LFTs thought to be due to hypotension. Abdominal ultrasound without acute abnormalities. LFTs trending down, Peaked AST/ALT 844/599. Repeat CMP. Atorvastatin currently on hold. Will need to repeat CMP as outpatient. If liver functions
normalize then resume statin as outpatient
Plan was discussed with patient and daughter who is at bedside as well as nursing
HPI 07/02/2025: Jessica is a 74 year old female with PMH of paroxysmal atrial fibrillation s/p PVI 2022 with repeat PVI 07/01/2025, pulmonary HTN, COPD, HTN, HLD, heart failure with preserved ejection fraction, and MR who presents to emergency
department 07/01/2025 with syncope. Patient had PVI ablation day earlier that day. Postprocedure she was found to have atrial tachycardia with heart elevated heart rates 120-150's bpm and was provided propafenone 450 mg along with home Toprol of 50
mg with latter-day of sinus rhythm. There was concern of volume overload and she was provided 40 mg of IV Lasix. Later that afternoon patient later was deemed stable for discharge and went home. Later that evening patient had syncopal episode
striking face resulting in nasal bone fracture. EMS was called and on arrival patient was found to be bradycardic and hypotensive. She was provided several doses of atropine and fluid bolus. On presentation to emergency department she was noted
to have YELENA with creatinine of 1.6 and potassium of 6.8. LFTs elevated at AST 290, ALT 150. Troponin 10.7. EKG on admission showed sinus bradycardia with first-degree AV block, IVCD, QTc 548 ms. She was provided additional episodes of atropine
and placed on Levophed and one dose of IV Lasix. She was provided Lokelma, dextrose and insulin with improvement of potassium to 4.9 however upon repeat labs potassium 6.1. Patient was noted to have altered mental status and underwent head CT x 2
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 Given elevated LFTs patient underwent abdominal ultrasound which showed small volume of ascites within abdomen and thickened gallbladder with no
stones or sludge.
At time of this evaluation patient lying in bed it appears to be somewhat restless but denies being in pain to me. She is oriented to person place and time. Heart rates in 50s to 60s on Levophed 3 mics per kilogram per minute. Per nursing patient
has been an uric and bladder scan did not show any significant urine retention.
Progress Note - Platform Stapler
Subjective
Date of Service: July 09, 2025
Patient seen and examined. Patient reports she is feeling well. She reports she is eager to go home. Patient's daughter at bedside. Currently denies chest pain or shortness of breath
Objective
Labs:
07/08/25 05:33
07/09/25 07:13
Labs
Hgb 10.8 g/dL (12.0-16.0) L 07/08/25 05:33
Hct 32.7 % (37.0-47.0) L 07/08/25 05:33
Plt Count 145 10^3/uL (130-400) 07/08/25 05:33
PT 23.5 Sec (11.4-14.6) H 07/02/25 02:05
INR 2.04 07/02/25 02:05
APTT 112.7 Sec (23.4-35.0) H 07/05/25 18:33
Sodium 133 mmol/L (135-145) L 07/09/25 07:13
Potassium 4.3 mmol/L (3.5-5.1) 07/09/25 07:13
BUN 17 mg/dl (7-17) 07/09/25 07:13
Creatinine 0.9 mg/dL (0.6-1.0) 07/09/25 07:13
Glucose 82 mg/dl (70-99) 07/09/25 07:13
Vital Signs and I&O:
Vital Signs
Temp Pulse Resp BP Pulse Ox
97.9 F 80 18 134/89 95
07/09/25 07:55 07/09/25 07:55 07/09/25 07:55 07/09/25 07:55 07/09/25 07:55
Vital Signs
Temp Pulse Resp BP Pulse Ox
97.9 F 80 18 134/89 95
07/09/25 07:55 07/09/25 07:55 07/09/25 07:55 07/09/25 07:55 07/09/25 07:55
Intake & Output
07/07/25 07/08/25 07/09/25 07/10/25
06:59 06:59 06:59 06:59
Intake Total 720 / 720 970 / 970 1080 / 1080
Balance 720 / 720 970 / 970 1080 / 1080
Physical Exam
Physical Exam
GEN: No distress, awake, Ox3, sitting in chair
HEENT: Healing ecchymosis under both eyes, supple, anicteric
LUNGS: CTA, no wheezes/rales
CV: Reg with periods of ectopy noted, S1/S2, 2/6 syst murmur
ABD: soft, BS+, NT/ND
EXT: Trace edema, no clubbing or cyanosis
NEURO: Gross non-focal
SKIN: No rash, warm, dry, pink
[2025-07-09 10:36] LABS: ALT (SGPT) 176 U/L (0-35); AST (SGOT) 88 U/L (14-36); Alkaline Phosphatase 91 U/L (38-126); Total Protein 5.3 g/dl (6.3-8.2)
--- NOTE | 2025-07-09 11:14 | CM ---
Reviewed the chart notes. CM continues to be available to patient/family and is monitoring medical plan for needs at discharge.
Plan: Discharge to home with [facility] services.
[2025-07-09 11:26] VITALS: BP 121/79
[2025-07-09 13:25] VITALS: BP 122/73; PULSE 106
--- NOTE | 2025-07-09 17:02 | W.DCSUMMARY ---
Discharge Summary
Discharge Data
Date of Admission: 07/01/25
Date of Discharge: 07/09/25
Total time spent discharging patient (in min): 36
-
Pending Results: No
Hospital Course
Discharging physician: Casey Espinosa DO
Discharge disposition: Home care
Primary discharge diagnoses:
Anuric YELENA due to ischemic ATN with renal recovery
Circulatory shock (vasovagal 2/2 PVI and propafenone mediated)
Tachycardia-bradycardia syndrome s/p PPM
Decompensated HFpEF/HFmrEF/BIV CHF (LVEF 50%, significantly reduced RV systolic function)
Acute hypoxemic respiratory failure
Atrial fibrillation with RVR
Metabolic encephalopathy
Chronic discharge diagnoses:
HFpEF
Paroxysmal AF on Eliquis s/p PVI
COPD
GEETHA not on CPAP
Pulmonary hypertension
Hypothyroidism
Gout
Hypertension
Dyslipidemia
Shock liver
Hospital course:
74-year-old female that presented to the hospital with bradycardia, hypotension, and YELENA that occurred following a recent pulmonary vein isolation for atrial fibrillation and after taking pill in pocket propafenone. She was admitted to the ICU
where she received vasopressors and IV fluids which ultimately were weaned as her hemodynamics improved with elimination of vasovagal response post PVI as well as systemic lamination of propafenone. Infectious workup was unyielding. Had quick
improvement to her hemodynamics and was transferred out of the ICU. Developed a significant anuric YELENA for which nephrology was consulted. She was treated supportively with IV bicarbonate drip and optimization of systemic perfusion and ultimately
had improved urine output and recovery of kidney function with creatinine and BUN back to baseline prior to discharge. Due to the IV fluid she received for her YELENA she developed iatrogenic decompensated HFpEF with atrial fibrillation and RVR. When
urine output recovered and she was provided with IV diuretics and quickly reached euvolemia and was stable on room air. She was transition off of IV diuretics back to her Lasix 20 mg home dose. Due to her decompensated HFpEF she developed RVR with
her atrial fibrillation. Was evaluated by electrophysiology who placed permanent pacemaker on 07/07/2025. For the indication of tachycardia-bradycardia syndrome. Following the procedure her metoprolol was uptitrated for rate control and she was
started on amiodarone load by cardiology. Recommended for follow-up in office with ems educator for consideration of DCCV however she appeared to have spontaneously converted to NSR prior to discharge. Of note, due to shock liver associated with
her circulatory state on arrival her home statin was held and cardiology recommended to hold it until follow-up in the office. Transaminases were in the low 100s at time of discharge. Was resumed on home irbesartan prior to discharge with stable
kidney function.
Consultants:
Ctc Operator�Cheo Vasquez MD
Digital Marketing Manager�Varghese Ji MD
Earring Maker�Bob Najera MD
Application Trainer�Maleonidas Meyer MD
Pertinent imaging findings:
Abdominal US (07/01/2025)
IMPRESSION: Small volume of ascites within the abdomen. Contrasted/thickened gallbladder with no stones or sludge appreciated. The wall thickening is nonspecific, possibly reactive in nature and related to patient's ascites versus underdistention.
Abdomen US with Doppler (07/05/2025)
FINDINGS and IMPRESSION: Hepatic artery demonstrates an abnormal high resistance waveform. Normal directional blood flow and velocity is seen in the portal veins. Normal directional biphasic blood flow and caliber of the hepatic veins.
Transthoracic echocardiogram (07/02/2025)
SUMMARY
1. Compared to prior echocardiogram from 11/2024 right ventricular function is now diminished.
2. Left ventricular ejection fraction is mildly reduced with an ejection fraction of 50 % by Paula's biplane method of discs.
3. Moderate mitral valve regurgitation.
4. Right ventricular cavity size is severely dilated.
5. Right ventricular systolic function is severely decreased.
6. Severe tricuspid regurgitation. Estimated pulmonary artery pressure of 28 mmHg assuming a right atrial pressure of 15 mmHg.
Procedures:
Dual-chamber PPM placement (07/07/2025)
Attending sales planner: Patrick Tsang DO
Lead parameters and device programming:
- RA Lead (Medtronic, Model 5076, # [id number]): Sensing 0.9 mV, Pacing threshold not performed patient in AF, Imp 494 ohm
- RV Lead (Medtronic, Model 3830, #[id number]): Sensing 6.6 mV, Pacing threshold 0.5 V at 0.4 ms, Imp 912 ohm(unipolar)
- Device: Medtronic, Model W1 DR 01 pacemaker (# [id number]), programmed AAIR�DDDR mode, 60-130 ppm
Conclusions:
1. Successful placement of a dual-chamber pacemaker with conduction system pacing (LBBAP)
2. Subclavian venography
Follow-up:
Family doctor within 1 week
Ctc Operator in 1 week
Outpatient CMP within 7 to 10 days
Discharge Plan
-
Patient Disposition: Home with Home Care
Discharge Diagnosis/Procedures: Tachycardia-bradycardia syndrome s/p pacemaker implant
Circulatory shock due to vasovagal effect and propafenone
Acute renal failure with full recovery
Paroxysmal AF with RVR
HFpEF
Condition: Fair
Diet: Low Cholesterol and No added salt
Driving Restrictions: No driving for 1 week
Bathing Restrictions: OK to Shower
Blood Work: CMP 7-10 days post discharge
Other Services: VN
Specialty Instructions: Weigh Daily- Call MD for wt gain/loss 3 lbs overnight/5 lbs in 1 week
Stand Alone Forms: DC Inst - Implanted Device
Referrals:
[facility] [Provider Group] - 07/14/25 2:00 pm
Referral Note: Post device incision check appointment
Curry Dutton DO [Family Provider, Family Practice]
Jennifer Tello CRNP [Specified Professional Personl, Cardiology] - 08/03/25 9:20 am
Referral Note: You have cardiology follow-up with nurse practitioner Jennifer Tello on August 03 at 9:20 AM. If you are unable to make this appointment please call [phone] to reschedule
Additional Discharge Medication Instructions: - Stop taking propafenone (Rythmol) it has been replaced by amiodarone
- Start taking amiodarone 200 mg twice daily for 1 month (until 08/08/2025) then reduce to 200 mg once daily thereafter. Two prescriptions have been sent to your pharmacy, one is for twice daily dosing with no refills and the other is for once
daily dosing with refills.
- Increase your dose of Toprol-XL (metoprolol succinate) to 100 mg (two 50 mg tablets or one 100 mg tablet) twice a day
- Continue your usual dose of Lasix (furosemide) 20 mg once a day
- Stop taking atorvastatin for now due to elevated liver function test blood work on admission, but it will likely be restarted in the near future
- Stop taking doxazosin (Cardura) for now due to low blood pressure, it might be restarted in the future
Prescriptions:
New
amiodarone [Pacerone] 200 mg Tablet
200 mg PO BID Qty: 60 0RF
Rx Instructions:
200 mg BID for 1 month then 200 mg once daily thereafter
metoprolol succinate 100 mg Tablet Extended Release 24 Hr
100 mg PO BID Qty: 60 11RF
amiodarone 200 mg tablet
200 mg PO DAILY Qty: 30 11RF
Rx Instructions:
200 mg BID for 1 month then 200 mg once daily thereafter
Continued
ascorbic acid (vitamin C) [Vitamin C] 500 mg Tablet
500 mg PO DAILY
irbesartan 150 mg Tablet
150 mg PO DAILY
Eliquis 5 mg Tablet
5 mg PO BID
magnesium oxide 400 mg magnesium Tablet
400 mg PO BID
levothyroxine [Synthroid] 50 mcg Tablet
50 mcg PO DAILY
multivitamin Tablet
1 tab PO DAILY
furosemide 40 mg Tablet
20 mg PO DAILY
calcium carbonate 600 mg calcium (1,500 mg) Tablet
1,200 mg PO DAILY
omega [id number]-fish oil [Fish Oil] 1,200 (144-216) mg Capsule
1 cap PO BID
fluoxetine 10 mg Tablet
10 mg PO DAILY
Discontinued
atorvastatin 10 mg Tablet
5 mg PO BID
doxazosin 2 mg Tablet
2 mg PO HS
metoprolol succinate 50 mg tablet extended release 24 hr
50 mg PO DAILY
propafenone 150 mg tablet
150 mg PO Q8H Qty: 90 5RF
Discharge Orders:
Discharge Patient (As Directed); Ordered 07/09/25
Ordered By: Casey Espinosa
Discharge Date and Time
Discharge Date/Time: 07/09/25 13:51
Print Language: ITALIAN
== END 2025-07-09 13:51 | disposition home health service (06) | DRG 242 ==
LOC: 2 NORTH 23:35
PROVIDERS: Internal Medicine Cardiovascular Disease; Nurse Practitioner Family; Nurse Practitioner Gerontology; Physician Assistant Medical; Psychiatry & Neurology Neurology; Registered Nurse; Student in an Organized Health Care Education/Training Program; ADMITTING PHYSICIAN Internal Medicine; ATTENDING PHYSICIAN Internal Medicine; CONSULT PHYSICIAN Internal Medicine Cardiovascular Disease; CONSULT PHYSICIAN Internal Medicine Critical Care Medicine; CONSULT PHYSICIAN Internal Medicine Gastroenterology; CONSULT PHYSICIAN Specialist; EMERGENCY PHYSICIAN Emergency Medicine; FAMILY PHYSICIAN Family Medicine; REFERRING PHYSICIAN Internal Medicine Cardiovascular Disease
PROC: XX20X89 Monitoring of Brain Electrical Activity, Computer-aided Detection and Notification, New Technology Group 9 (ICD-10-PCS; 2025-07-02)
PROC: 5A2204Z Restoration of Cardiac Rhythm, Single (ICD-10-PCS; 2025-07-06)
PROC: B5171ZZ Fluoroscopy of Left Subclavian Vein using Low Osmolar Contrast (ICD-10-PCS; 2025-07-07)
PROC: 0JH606Z Insertion of Pacemaker, Dual Chamber into Chest Subcutaneous Tissue and Fascia, Open Approach (ICD-10-PCS; 2025-07-07)
PROC: 02H63JZ Insertion of Pacemaker Lead into Right Atrium, Percutaneous Approach (ICD-10-PCS; 2025-07-07)
PROC: 02HK3JZ Insertion of Pacemaker Lead into Right Ventricle, Percutaneous Approach (ICD-10-PCS; 2025-07-07)
DX: I49.5 Sick sinus syndrome (principal); G92.8 Other toxic encephalopathy; K72.00 Acute and subacute hepatic failure without coma; N17.0 Acute kidney failure with tubular necrosis; J96.01 Acute respiratory failure with hypoxia; R57.0 Cardiogenic shock; I50.33 Acute on chronic diastolic (congestive) heart failure; I47.19 Other supraventricular tachycardia; I48.21 Permanent atrial fibrillation; I5A Non-ischemic myocardial injury (non-traumatic); E87.20 Acidosis, unspecified; R18.8 Other ascites; F05 Delirium due to known physiological condition; I48.4 Atypical atrial flutter; I44.0 Atrioventricular block, first degree; E78.00 Pure hypercholesterolemia, unspecified; E87.5 Hyperkalemia; I11.0 Hypertensive heart disease with heart failure; S02.2XXA Fracture of nasal bones, initial encounter for closed fracture; E03.9 Hypothyroidism, unspecified; I70.0 Atherosclerosis of aorta; I27.20 Pulmonary hypertension, unspecified; I87.2 Venous insufficiency (chronic) (peripheral); J43.9 Emphysema, unspecified; E87.6 Hypokalemia; R91.1 Solitary pulmonary nodule; G47.33 Obstructive sleep apnea (adult) (pediatric); K57.30 Diverticulosis of large intestine without perforation or abscess without bleeding; K58.0 Irritable bowel syndrome with diarrhea; D64.9 Anemia, unspecified; M10.9 Gout, unspecified; M85.80 Other specified disorders of bone density and structure, unspecified site; I27.23 Pulmonary hypertension due to lung diseases and hypoxia; E83.42 Hypomagnesemia; R34 Anuria and oliguria; H26.9 Unspecified cataract; I08.1 Rheumatic disorders of both mitral and tricuspid valves; W08.XXXA Fall from other furniture, initial encounter; Y93.89 Activity, other specified; Y92.009 Unspecified place in unspecified non-institutional (private) residence as the place of occurrence of the external cause; Z11.52 Encounter for screening for COVID-19; Z79.01 Long term (current) use of anticoagulants; Z87.891 Personal history of nicotine dependence; Z79.890 Hormone replacement therapy; Z79.899 Other long term (current) drug therapy
CPT/HCPCS: 33208; 36600; 70450; 70486; 71045; 71046; 73560; 76700; 80048; 80053; 80069; 80076; 80143; 81003; 81015; 82077; 82140; 82248; 82550; 82570; 82805; 82962; 83605; 83735; 83880; 84100; 84132; 84300; 84443; 84450; 84460; 84484; 85025; 85027; 85610; 85730; 86705; 86706; 86709; 86803; 87040; 87086; 87340; 87502; 87811; 92960; 93005; 93306; 93975; 94640; 96361; 96374; 96375; 97116; 97163; 97530; 99285; C1769; C1785; C1887; C1898; Q9967

== ENCOUNTER → 2025-08-24 14:50 | Outpatient (REF) | payer OTHER, SELFPAY | LOC: RCS 14:50 | PROVIDERS: ATTENDING PHYSICIAN Nurse Practitioner; FAMILY PHYSICIAN Family Medicine | DX: I48.0 Paroxysmal atrial fibrillation (principal); I27.21 Secondary pulmonary arterial hypertension | CPT/HCPCS: 93306 ==

== ENCOUNTER → 2025-09-07 10:24 | Outpatient (REF) | payer OTHER, SELFPAY | LOC: RCS 10:24 | PROVIDERS: ATTENDING PHYSICIAN Internal Medicine Cardiovascular Disease; FAMILY PHYSICIAN Family Medicine | DX: I42.9 Cardiomyopathy, unspecified (principal) | CPT/HCPCS: 93308; Q9950 ==